=== PATIENT | female | born 1955 | race Caucasian/White ===

== ENCOUNTER 2018-12-26 19:54 | Inpatient (IN) | payer MEDICAID, SELFPAY ==
--- NOTE | 2018-12-26 20:06 | EKG12_ITS ---
Test Reason : L HIP FX Blood Pressure : / mmHG Vent. Rate : 071 BPM Atrial Rate : 071 BPM P-R Int : 132 ms QRS Dur : 088 ms QT Int : 590 ms P-R-T Axes : 042 -08 059 degrees QTc Int : 641 ms Normal sinus rhythm Nonspecific ST and T wave abnormality Abnormal ECG Confirmed by MADDY GRAY, KALE ([id number]), scientific editor MARY LAWS ([id number]) on 12/30/2018 10:26:07 AM Referred By: DAMON Confirmed By:KALE CASTAÑEDA MD
--- NOTE | 2018-12-26 20:06 | CT_ITS ---
STUDY: CT BRAIN WITHOUT CONTRAST REASON FOR EXAM: Female, 63 years old. 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 Individualized dose optimization techniques were used for this CT. COMPARISON: July 10, 2016 FINDINGS: Normal soft tissue structures. Normal calvarium. Talus coils are seen in the vicinity of the distal supraclinoid portion of the right internal carotid consistent with aneurysm repair. Ventricular shunt tube entering the brain through a daniel hole in the right parietal bone with tip in the vicinity of the frontal pole of left lateral ventricle Normal size ventricles and extra-axial spaces for the patient's age. Extensive periventricular white matter hypoattenuation most severe on the right in watershed distribution. Old right thalamic infarct.. Normal basal ganglia. Normal brainstem. Normal cerebellum. There is no intracranial hemorrhage. There are no findings of an acute ischemic infarction. Normal visualized paranasal sinuses. No significant change since prior exam CT/Brain/Head without Contrast IMPRESSION: Periventricular white matter disease more severe on the right in association with old right thalamic infarct. No evidence for acute intracranial bleed. Other findings as above Electronically Signed: Tom Fall MD at 21:37 EDT , Service support ,
--- NOTE | 2018-12-26 20:07 | RAD_ITS ---
STUDY: X-RAY - PELVIS AND LEFT HIP REASON FOR EXAM: Female, 63 years old. Fall. Left hip and groin pain. TECHNIQUE: 4 views of the pelvis and hip. COMPARISON: Pelvis and left hip, July 11, 2016. An right hip, July 11, 2016 FINDINGS: There is a non-specific bowel gas pattern. Normal visualized soft tissue structures. There are multiple calcified phleboliths. The inferior aspect of a [employer]ER shunt catheter is seen coiled in the pelvis. There is narrowing with cortical sclerosis and osteophyte formation of the sacroiliac joint consistent with degenerative osteoarthritic changes. Normal iliac wings and sacrum. Irregularity of the right pubic rami, suggesting interval fracture of the inferior Dexter and superior rami extending into the symphysis pubis Normal pubic symphysis. Normal bilateral ischial tuberosities. There is a medullary angella in the femoral shaft with a transfixing screw extending into the femoral head and neck. This screw extends laterally through the medullary angella greater than expected from the post images of 2019 suggesting a compression of the femoral neck. The intratrochanteric fracture is minimally evident. The lesser trochanteric fragment now impacts against the inferior hip joint. Normal acetabulum. Normal hip joint. RAD/HIP, UNI W/ Pelvis 2-3 Views IMPRESSION: 1. No evidence of internal fixation of left intratrochanteric fracture. There is questionable impaction of the femoral neck with slight extension of the fixating screw at the right compared to the postop images. 2. The lesser trochanteric fracture fragment now impacts the inferior aspect of the right hip joint. 3. Irregularity of the superior and inferior right pubic rami suggesting fracture not noted on the prior images. Electronically Signed: Alfa Gan DO at 21:17 EDT Tel [phone], Service support ,
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
[2018-12-26 20:14] VITALS: BP 118/87; PULSE 74; RESP 18; TEMP 36.6; O2SAT 100; BMI 22.6
[2018-12-26 20:49] LABS: Absolute Lymphocyte Count 2.36 X10^3/uL (0.83-4.51); Absolute Neutrophil Count 8.5 X10^3/uL (2.0-7.7); Basophil# 0.06 X10^3/uL; Basophil% 0.5 % (0-1); Eosinophil# 0.21 X10^3/uL; Eosinophils% 1.7 % (0-5); Hematocrit 33.6 % (37-47); Lymphocyte # 2.36 X10^3/ul (4.0); Lymphocyte % 19.6 % (19-41); Mean Corp Hgb Conc 32.7 g/dL (32-36); Mean Corpuscular Hgb 32.4 pg (27.0-32.0); Mean Corpuscular Volume 98.8 fL (81-99); Mean Platelet Vol. 9.8 fl (6.2-12.0); Monocyte# 0.86 X10^3/uL; Monocyte% 7.1 % (0-10); NRBC Flagged by Analyzer 0 % (0-5); Neutrophil # 8.47 X10^3/uL (2.7-7.7); Neutrophil % 70.5 % (47-70); Platelet Count 258 K/mm3 (150-450); RBC Distribution Width CV 14.6 % (11.6-14.6)
--- NOTE | 2018-12-26 20:50 | RAD_ITS ---
STUDY: X-RAY CHEST REASON FOR EXAM: Female, 63 years old. Fall. Pain. TECHNIQUE: Single AP portable view of the chest. COMPARISON: July 10, 2016. FINDINGS: Stable right-sided ASPHALT BLENDER shunt catheter. The lungs are clear and expanded. There is no demonstrated pleural abnormality. Normal size heart. Normal mediastinum and ade. Normal visualized pulmonary arteries. Normal visualized aortic arch and descending thoracic aorta. The thoracic spine is obscured by the mediastinum. There is degenerative osteoarthritis of the bilateral shoulders. There is no demonstrated abnormality of the visualized soft tissue structures of the upper abdomen. RAD/Chest 1 View (Portable) IMPRESSION: Degenerative changes, as described above. No demonstrated acute cardiopulmonary process. There is no interval change. Electronically Signed: Alfa Gan DO at 21:06 EDT Tel [phone], Service support ,
[2018-12-26] MEDS: 0.9% Normal Saline 1,000 ML 1000 ML IV (21:01)
[2018-12-26 21:06] LABS: International Normalized Ratio 1.2; Prothrombin Time (Protime)PT. 14.9 SECONDS (11.7-14.9)
[2018-12-26 21:09] LABS: AST(SGOT) 22 U/L (15-37); Alanine Aminotransfer ALT/SGPT 26 U/L (13-56); Albumin, Serum 3.5 g/dL (3.2-5.0); Alkaline Phosphatase 73 U/L (45-117); Anion Gap 6 (5-15); BUN 21 mg/dL (7-18); BUN/Creat Ratio 20.4 RATIO (10-20); CPK Total, Creatine Kinase 102 U/L (26-192); Calcium,Total 8.5 mg/dL (8.5-10.1); Chloride 113 mmol/L (98-107); Creatinine, Serum 1.03 mg/dL (0.55-1.02); EST Glomerular Filtration Rate 58 mL/min (>60); Est Glom Filt Rate - Afr Amer 70 mL/min (>60); Estimated Creatinine Clearance 47.45 ml/min; Globulin 3.5 g/dL (2.2-4.2); Glucose 90 mg/dL (74-106); Potassium 2.4 mmol/L (3.5-5.1); Sodium Level 143 mmol/L (136-145)
[2018-12-26 21:10] LABS: Lactic Acid 1.9 mmol/L (0.4-2.0)
--- NOTE | 2018-12-26 21:11 | ED.RN ---
RECEIVED CRITICAL LAB VALUE, AWARE.
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
--- NOTE | 2018-12-26 21:17 | ED.RN ---
PER EMS PT'S HOME IS UNFIT FOR HUMAN HABITATION, THEY STATE IS IS COVERED WITH CAT FECES AND URINE, 20 CATS. PT HAS EXTREMELY POOR HYGIENE, FLORES ON CHEST, BILATERAL ARMS AND HANDS, BILATERAL LEGS WELL GENITALS. PT ALSO COVERED IN FLEAS, CLOTHING DOUBLE BAGGED, ALL BED LINEN CHANGED. CLOTHING IS FILTHY
[2018-12-26 21:28] LABS: Mucous, Urine 0 SEEN /hpf (<or=2+); Red Blood Cells-Urine 0 SEEN /hpf (0-5); Squamous Epithelial Cells - UA 0 SEEN /hpf (5-10); White Blood Cells 0 SEEN /hpf (0-5)
[2018-12-26] MEDS: Potassium Chloride 10mEq/100mL 10 MEQ/100 ML IV.SOLN. 100 MEQ IV BOLUS ×2 (21:39→23:00)
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
[2018-12-26 21:44] LABS: Color, Urine Yellow (Yellow); Glucose, Dipstick Normal (Normal); Ketone-Dipstick 5 mg/dl (Negative); Leukocyte Esterase-Dipstick 25 /ul (Negative); Nitrite-Dipstick Positive (Negative); Occult Blood-Urine Negative /ul (Negative); Protein-Dipstick 30 mg/dl (Negative); Urine Bilirubin Dipstick Negative (Negative); Urine Clarity Clear (Clear); Urine Urobilinogen 1 mg/dl (Normal)
[2018-12-26 22:00] LABS: Bacteria 2+ /hpf (None Seen)
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
[2018-12-26] MEDS: fentaNYL 100 MCG/2 ML Ampul 25 MCG IV (22:55)
[2018-12-26] MEDS: Ceftriaxone 1 GM/50 ML BAG IV (22:55)
[2018-12-26 22:59] VITALS: BP 122/64; PULSE 70; RESP 18; O2SAT 99
[2018-12-26 23:27] VITALS: BP 123/60; PULSE 72; RESP 18; TEMP 36.6; O2SAT 99
[2018-12-26 23:28] VITALS: BMI 19.1; BMI 22.7
[2018-12-26 23:35] VITALS: PULSE 72
[2018-12-26 23:35] LABS: Magnesium 2.1 mg/dL (1.6-2.6)
[2018-12-27] VITALS (10 sets, daily range): BP systolic 112–148; BP diastolic 53–66; PULSE 68–79; RESP 16–18; TEMP 36.3–37.1; O2SAT 96–100
[2018-12-27] MEDS: Levothyroxine 50 MCG Tablet PO (05:23)
[2018-12-27] MEDS: Acetaminophen 500 MG Tablet PO ×4 (05:23→23:52)
[2018-12-27] MEDS: oxyCODONE 5 MG Tablet PO ×2 (05:24→18:23)
[2018-12-27 06:02] LABS: Absolute Lymphocyte Count 2.19 X10^3/uL (0.83-4.51); Absolute Neutrophil Count 6.3 X10^3/uL (2.0-7.7); Basophil# 0.04 X10^3/uL; Basophil% 0.4 % (0-1); Eosinophil# 0.32 X10^3/uL; Eosinophils% 3.4 % (0-5); Hematocrit 30.9 % (37-47); Lymphocyte # 2.19 X10^3/ul (4.0); Lymphocyte % 23.3 % (19-41); Mean Corp Hgb Conc 32.4 g/dL (32-36); Mean Corpuscular Hgb 31.8 pg (27.0-32.0); Mean Corpuscular Volume 98.4 fL (81-99); Monocyte# 0.55 X10^3/uL; Monocyte% 5.8 % (0-10); NRBC Flagged by Analyzer 0 % (0-5); Neutrophil # 6.27 X10^3/uL (2.7-7.7); Neutrophil % 66.7 % (47-70); Platelet Count 241 K/mm3 (150-450); RBC Distribution Width CV 14.8 % (11.6-14.6); RBC Distribution Width SD 53.4 fl (35.1-43.9); Red Blood Count 3.14 M/mm3 (4.2-5.4); White Blood Count 9.4 K/mm3 (4.4-11.0)
[2018-12-27 06:40] LABS: Magnesium 2.1 mg/dL (1.6-2.6)
[2018-12-27 06:43] LABS: Anion Gap 3 (5-15); BUN 16 mg/dL (7-18); BUN/Creat Ratio 20.8 RATIO (10-20); Calcium,Total 8.3 mg/dL (8.5-10.1); Chloride 122 mmol/L (98-107); Creatinine, Serum 0.77 mg/dL (0.55-1.02); EST Glomerular Filtration Rate 81 mL/min (>60); Est Glom Filt Rate - Afr Amer 98 mL/min (>60); Estimated Creatinine Clearance 61.41 ml/min; Glucose 91 mg/dL (74-106); Potassium 4.3 mmol/L (3.5-5.1); Sodium Level 144 mmol/L (136-145)
[2018-12-27] MEDS: Multivitamins,Therapeutic Tablet 1 TABLET PO (08:30)
[2018-12-27] MEDS: Dicyclomine 10 MG Capsule PO ×3 (08:30→16:08)
[2018-12-27] MEDS: Diclofenac 75 MG Tablet PO ×2 (08:30→16:08)
[2018-12-27] MEDS: buPROPion (SR) 150 MG Tablet.SA PO ×2 (09:56→21:15)
[2018-12-27] MEDS: Escitalopram Oxalate 10 MG Tablet PO (09:56)
[2018-12-27] MEDS: Loratadine 10 MG Tablet PO (09:56)
[2018-12-27] MEDS: Baclofen 10 MG Tablet PO ×2 (09:56→21:15)
[2018-12-27] MEDS: Lisinopril 10 MG Tablet PO (09:56)
[2018-12-27] MEDS: Pregabalin 50 MG Capsule PO ×2 (10:00→21:16)
--- NOTE | 2018-12-27 10:31 | CASEMGMT ---
Social Work Consult: SNF placement Informant: Social Work Reviewed patient chart and ED SW note from last evening. Met with patient in room. Introduced self as well as child protective services social worker role. Patient agreeable to met with this child protective services social worker. Patient stating to live alone and to have support from neighbors. Patient stating that sonBarak is currently in senior living in [place] with possible release in 2019. Patient identifying patient neighbors as main support for transportation and mowing patient yard. Patient stating to have three brothers that see patient occasionally. Patient stating to be interested and agreeable to fci placement, if this is needed. This child protective services social worker noting that therapy has not yet evaluated patient yet and disposition is unclear but there are concerns of patient safety within the home. Patient confirming to stating I have a lot of cats. Patient stating to have no concerns with home environment and to be able to meet all own needs. Patient stating to be able to get own food and manage ADL's. Per ED documentation patient was unkept when coming to ED and per per squad patient home is unkept with fecal matter of cats throughout the home. Per documentation patient is stating to see a decline in ability to care for self. This child protective services social worker providing patient with list of nursing homes within the [facility] as well as noting which facilities are in-network with patient insurance. Patient planning to review list and pick top three. Patient aware social work will follow up with patient on Saturday for placement/discharge planning. Moe LEON, ARCELIA
--- NOTE | 2018-12-27 13:21 | PCM.PROGNOTE ---
<Devon Vásquez - Last Filed: 12/27/18 13:21> Patient Problems: Active and Suspected Problems Fall (Acute) Left hip pain (Acute) Hypokalemia (Acute) - Physical Exam General: Alert, Oriented x3, Cooperative HEENT: Atraumatic, PERRLA, EOMI, Normocephalic Neck: Supple, No JVD, Negative Carotid Bruits Lungs: Clear to auscultation, Normal air movement Cardiovascular: Regular rate, No murmurs Abdomen: Bowel Sounds Present, Soft, Non Tender Extremities: No edema, Capillary Refill Less than 3 Seconds Skin: No rashes, No breakdown Musculoskeletal: No Tenderness to Palpation of Joints or Extremities Neurological: Cranial nerves II-XII grossly intact Psych/Mental Status: Flat Affect, Alert and oriented to time, place, person, mood and affect Vital Signs Temp Pulse Resp BP Pulse Ox 97.3 F L 76 16 129/62 H 98 12/27/18 09:51 12/27/18 09:51 12/27/18 09:51 12/27/18 09:51 12/27/18 09:51 Oxygen Delivery Method Room Air Weight: 111 lb 12.39 oz Body Mass Index (BMI) 19.1 Finger Stick Blood Glucose 88 Intake and Output for Last 24 Hours 12/25/18 12/26/18 12/27/18 23:59 23:59 23:59 Intake Total 1100 / 1100 1190 / 1190 Balance 1100 / 1100 1190 / 1190 Microbiology Past 72 Hours 12/26/18 21:10 Urine Culture - Preliminary Urine Catheter - Catheter GNR lactose automotive service director Laboratory Tests Past 24 Hrs 12/26/18 12/26/18 12/26/18 20:33 20:33 20:33 WBC 12.0 H RBC 3.40 L Hgb 11.0 L Hct 33.6 L MCV 98.8 MCH 32.4 H MCHC 32.7 RDW Std Deviation 53.0 H RDW Coeff of Jesus 14.6 Plt Count 258 MPV 9.8 Immature Gran % (Auto) 0.600 Neut % (Auto) 70.5 H Lymph % (Auto) 19.6 Baylor % (Auto) 7.1 Eos % (Auto) 1.7 Baso % (Auto) 0.5 Absolute Neuts (auto) 8.5 H Absolute Lymphs (auto) 2.36 Nucleated RBC % 0 PT 14.9 INR 1.2 Sodium 143 Potassium 2.4 L* Chloride 113 H Carbon Dioxide 24.0 Anion Gap 6 BUN 21 H Creatinine 1.03 H Estim Creat Clear Calc 47.45 Est GFR (MDRD) Af Amer 70 Est GFR (MDRD) Non-Af 58 L BUN/Creatinine Ratio 20.4 H Glucose 90 Lactic Acid Calcium 8.5 Magnesium Total Bilirubin 0.40 AST 22 ALT 26 Alkaline Phosphatase 73 Total Creatine Kinase 102 Total Protein 7.0 Albumin 3.5 Globulin 3.5 Albumin/Globulin Ratio 1.0 Vitamin B12 Vitamin D 25-Hydroxy Urine Color Urine Clarity Urine pH Ur Specific [place] Urine Protein Urine Glucose (UA) Urine Ketones Urine Occult Blood Urine Nitrite Urine Bilirubin Urine Urobilinogen Ur Leukocyte Esterase Urine RBC Urine WBC Ur Squamous Epith Cells Urine Bacteria Urine Mucus Urine Potassium 12/26/18 12/26/18 12/26/18 20:33 20:33 21:10 WBC RBC Hgb Hct MCV MCH MCHC RDW Std Deviation RDW Coeff of Jesus Plt Count MPV Immature Gran % (Auto) Neut % (Auto) Lymph % (Auto) Baylor % (Auto) Eos % (Auto) Baso % (Auto) Absolute Neuts (auto) Absolute Lymphs (auto) Nucleated RBC % PT INR Sodium Potassium Chloride Carbon Dioxide Anion Gap BUN Creatinine Estim Creat Clear Calc Est GFR (MDRD) Af Amer Est GFR (MDRD) Non-Af BUN/Creatinine Ratio Glucose Lactic Acid 1.9 Calcium Magnesium 2.1 Total Bilirubin AST ALT Alkaline Phosphatase Total Creatine Kinase Total Protein Albumin Globulin Albumin/Globulin Ratio Vitamin B12 Vitamin D 25-Hydroxy Urine Color Yellow Urine Clarity Clear Urine pH 6.0 Ur Specific [place] 1.010 Urine Protein 30 H Urine Glucose (UA) Normal Urine Ketones 5 H Urine Occult Blood Negative Urine Nitrite Positive H Urine Bilirubin Negative Urine Urobilinogen 1 H Ur Leukocyte Esterase 25 H Urine RBC 0 SEEN Urine WBC 0 SEEN Ur Squamous Epith Cells 0 SEEN Urine Bacteria 2+ Urine Mucus 0 SEEN Urine Potassium 12/26/18 12/27/18 12/27/18 21:10 05:15 05:15 WBC 9.4 RBC 3.14 L Hgb 10.0 L Hct 30.9 L MCV 98.4 MCH 31.8 MCHC 32.4 RDW Std Deviation 53.4 H RDW Coeff of Jesus 14.8 H Plt Count 241 MPV 10.0 Immature Gran % (Auto) 0.400 Neut % (Auto) 66.7 Lymph % (Auto) 23.3 Baylor % (Auto) 5.8 Eos % (Auto) 3.4 Baso % (Auto) 0.4 Absolute Neuts (auto) 6.3 Absolute Lymphs (auto) 2.19 Nucleated RBC % 0 PT INR Sodium 144 Potassium 4.3 Chloride 122 H Carbon Dioxide 19.0 L Anion Gap 3 L BUN 16 Creatinine 0.77 Estim Creat Clear Calc 61.41 Est GFR (MDRD) Af Amer 98 Est GFR (MDRD) Non-Af 81 BUN/Creatinine Ratio 20.8 H Glucose 91 Lactic Acid Calcium 8.3 L Magnesium Total Bilirubin AST ALT Alkaline Phosphatase Total Creatine Kinase Total Protein Albumin Globulin Albumin/Globulin Ratio Vitamin B12 Vitamin D 25-Hydroxy Urine Color Urine Clarity Urine pH Ur Specific [place] Urine Protein Urine Glucose (UA) Urine Ketones Urine Occult Blood Urine Nitrite Urine Bilirubin Urine Urobilinogen Ur Leukocyte Esterase Urine RBC Urine WBC Ur Squamous Epith Cells Urine Bacteria Urine Mucus Urine Potassium 61.0 12/27/18 12/27/18 05:15 05:15 WBC RBC Hgb Hct MCV MCH MCHC RDW Std Deviation RDW Coeff of Jesus Plt Count MPV Immature Gran % (Auto) Neut % (Auto) Lymph % (Auto) Baylor % (Auto) Eos % (Auto) Baso % (Auto) Absolute Neuts (auto) Absolute Lymphs (auto) Nucleated RBC % PT INR Sodium Potassium Chloride Carbon Dioxide Anion Gap BUN Creatinine Estim Creat Clear Calc Est GFR (MDRD) Af Amer Est GFR (MDRD) Non-Af BUN/Creatinine Ratio Glucose Lactic Acid Calcium Magnesium 2.1 Total Bilirubin AST ALT Alkaline Phosphatase Total Creatine Kinase Total Protein Albumin Globulin Albumin/Globulin Ratio Vitamin B12 Pending Vitamin D 25-Hydroxy Pending Urine Color Urine Clarity Urine pH Ur Specific [place] Urine Protein Urine Glucose (UA) Urine Ketones Urine Occult Blood Urine Nitrite Urine Bilirubin Urine Urobilinogen Ur Leukocyte Esterase Urine RBC Urine WBC Ur Squamous Epith Cells Urine Bacteria Urine Mucus Urine Potassium Medical Necessity - Tobacco Use Smoking Status: Current every day smoker Tobacco Use: Cigarettes Assessment/Plan All Active Problems Fall (Acute) Left hip pain (Acute) Hypokalemia (Acute) 1. Fall, debility - PTOT. Xray shows new changes, ct hip ordered. consider ortho consult. hx prior hip surgery. 2. Hypokalemia - resolved. 3. Acute cystitis - WBC improved. Cx with 80-100k GNR. Continue Rocephin. No fever. 4. Depression - escitalopram resumed. She was out at home, will need script at dc. 5. HTN - stable 6. Hypothyroid - synthroid 7. Hx hydrocephalus, brain aneurysm. DVT ppx: lovenox DC planning: PTOT. This patient was seen by Devon Vásquez PA-C under the supervision of Dr. Chávez. <José Miguel Chávez F - Last Filed: 12/27/18 14:01> - Physical Exam Vital Signs Temp Pulse Resp BP Pulse Ox 97.3 F L 76 16 129/62 H 98 12/27/18 09:51 12/27/18 09:51 12/27/18 09:51 12/27/18 09:51 12/27/18 09:51 Oxygen Delivery Method Room Air Weight: 111 lb 12.39 oz Body Mass Index (BMI) 19.1 Finger Stick Blood Glucose 88 Intake and Output for Last 24 Hours 12/25/18 12/26/18 12/27/18 23:59 23:59 23:59 Intake Total 1100 / 1100 1190 / 1190 Balance 1100 / 1100 1190 / 1190 Microbiology Past 72 Hours 12/26/18 21:10 Urine Culture - Preliminary Urine Catheter - Catheter GNR lactose automotive service director Laboratory Tests Past 24 Hrs 12/26/18 12/26/18 12/26/18 20:33 20:33 20:33 WBC 12.0 H RBC 3.40 L Hgb 11.0 L Hct 33.6 L MCV 98.8 MCH 32.4 H MCHC 32.7 RDW Std Deviation 53.0 H RDW Coeff of Jesus 14.6 Plt Count 258 MPV 9.8 Immature Gran % (Auto) 0.600 Neut % (Auto) 70.5 H Lymph % (Auto) 19.6 Baylor % (Auto) 7.1 Eos % (Auto) 1.7 Baso % (Auto) 0.5 Absolute Neuts (auto) 8.5 H Absolute Lymphs (auto) 2.36 Nucleated RBC % 0 PT 14.9 INR 1.2 Sodium 143 Potassium 2.4 L* Chloride 113 H Carbon Dioxide 24.0 Anion Gap 6 BUN 21 H Creatinine 1.03 H Estim Creat Clear Calc 47.45 Est GFR (MDRD) Af Amer 70 Est GFR (MDRD) Non-Af 58 L BUN/Creatinine Ratio 20.4 H Glucose 90 Lactic Acid Calcium 8.5 Magnesium Total Bilirubin 0.40 AST 22 ALT 26 Alkaline Phosphatase 73 Total Creatine Kinase 102 Total Protein 7.0 Albumin 3.5 Globulin 3.5 Albumin/Globulin Ratio 1.0 Vitamin B12 Vitamin D 25-Hydroxy Urine Color Urine Clarity Urine pH Ur Specific [place] Urine Protein Urine Glucose (UA) Urine Ketones Urine Occult Blood Urine Nitrite Urine Bilirubin Urine Urobilinogen Ur Leukocyte Esterase Urine RBC Urine WBC Ur Squamous Epith Cells Urine Bacteria Urine Mucus Urine Potassium 12/26/18 12/26/18 12/26/18 20:33 20:33 21:10 WBC RBC Hgb Hct MCV MCH MCHC RDW Std Deviation RDW Coeff of Jesus Plt Count MPV Immature Gran % (Auto) Neut % (Auto) Lymph % (Auto) Baylor % (Auto) Eos % (Auto) Baso % (Auto) Absolute Neuts (auto) Absolute Lymphs (auto) Nucleated RBC % PT INR Sodium Potassium Chloride Carbon Dioxide Anion Gap BUN Creatinine Estim Creat Clear Calc Est GFR (MDRD) Af Amer Est GFR (MDRD) Non-Af BUN/Creatinine Ratio Glucose Lactic Acid 1.9 Calcium Magnesium 2.1 Total Bilirubin AST ALT Alkaline Phosphatase Total Creatine Kinase Total Protein Albumin Globulin Albumin/Globulin Ratio Vitamin B12 Vitamin D 25-Hydroxy Urine Color Yellow Urine Clarity Clear Urine pH 6.0 Ur Specific [place] 1.010 Urine Protein 30 H Urine Glucose (UA) Normal Urine Ketones 5 H Urine Occult Blood Negative Urine Nitrite Positive H Urine Bilirubin Negative Urine Urobilinogen 1 H Ur Leukocyte Esterase 25 H Urine RBC 0 SEEN Urine WBC 0 SEEN Ur Squamous Epith Cells 0 SEEN Urine Bacteria 2+ Urine Mucus 0 SEEN Urine Potassium 12/26/18 12/27/18 12/27/18 21:10 05:15 05:15 WBC 9.4 RBC 3.14 L Hgb 10.0 L Hct 30.9 L MCV 98.4 MCH 31.8 MCHC 32.4 RDW Std Deviation 53.4 H RDW Coeff of Jesus 14.8 H Plt Count 241 MPV 10.0 Immature Gran % (Auto) 0.400 Neut % (Auto) 66.7 Lymph % (Auto) 23.3 Baylor % (Auto) 5.8 Eos % (Auto) 3.4 Baso % (Auto) 0.4 Absolute Neuts (auto) 6.3 Absolute Lymphs (auto) 2.19 Nucleated RBC % 0 PT INR Sodium 144 Potassium 4.3 Chloride 122 H Carbon Dioxide 19.0 L Anion Gap 3 L BUN 16 Creatinine 0.77 Estim Creat Clear Calc 61.41 Est GFR (MDRD) Af Amer 98 Est GFR (MDRD) Non-Af 81 BUN/Creatinine Ratio 20.8 H Glucose 91 Lactic Acid Calcium 8.3 L Magnesium Total Bilirubin AST ALT Alkaline Phosphatase Total Creatine Kinase Total Protein Albumin Globulin Albumin/Globulin Ratio Vitamin B12 Vitamin D 25-Hydroxy Urine Color Urine Clarity Urine pH Ur Specific [place] Urine Protein Urine Glucose (UA) Urine Ketones Urine Occult Blood Urine Nitrite Urine Bilirubin Urine Urobilinogen Ur Leukocyte Esterase Urine RBC Urine WBC Ur Squamous Epith Cells Urine Bacteria Urine Mucus Urine Potassium 61.0 12/27/18 12/27/18 05:15 05:15 WBC RBC Hgb Hct MCV MCH MCHC RDW Std Deviation RDW Coeff of Jesus Plt Count MPV Immature Gran % (Auto) Neut % (Auto) Lymph % (Auto) Baylor % (Auto) Eos % (Auto) Baso % (Auto) Absolute Neuts (auto) Absolute Lymphs (auto) Nucleated RBC % PT INR Sodium Potassium Chloride Carbon Dioxide Anion Gap BUN Creatinine Estim Creat Clear Calc Est GFR (MDRD) Af Amer Est GFR (MDRD) Non-Af BUN/Creatinine Ratio Glucose Lactic Acid Calcium Magnesium 2.1 Total Bilirubin AST ALT Alkaline Phosphatase Total Creatine Kinase Total Protein Albumin Globulin Albumin/Globulin Ratio Vitamin B12 Pending Vitamin D 25-Hydroxy Pending Urine Color Urine Clarity Urine pH Ur Specific [place] Urine Protein Urine Glucose (UA) Urine Ketones Urine Occult Blood Urine Nitrite Urine Bilirubin Urine Urobilinogen Ur Leukocyte Esterase Urine RBC Urine WBC Ur Squamous Epith Cells Urine Bacteria Urine Mucus Urine Potassium Code Visit Addendum: Dr. Chávez I personally examined the patient and reviewed the chart. I agree with the above. 63-year-old female presenting from home week and had a difficult time getting up from the toilet even. She has not been feeling well the last couple of days and she thinks that it started about 3 weeks ago when her son was jailed for meth trafficking. Since that time she just has been depressed and not eating very well and not taking all of her medications she ran out of her Endologix. She came into the ER with hypokalemia down to 2.4 which is been replaced. However x-rays of her left hip show the where she had a previous repair of the right damage, therefore will obtain CT of the hip and Ortho evaluation. Inpatient E&M: [id number] Subs Hosp L2
--- NOTE | 2018-12-27 13:25 | CT_ITS ---
STUDY: CT LEFT HIP WITHOUT CONTRAST REASON FOR EXAM: Female, 63 years old. Left hip surgery, left hip pain after falling RADIATION DOSAGE (If Supplied By Facility): CTDIvol = ( 13.38 ) mGy, DLP = ( 430.98 ) mGycm TECHNIQUE: Transaxial CT imaging of the hip was performed. Sagittal and coronal images were reconstructed. Individualized dose optimization techniques were used for this CT. COMPARISON: 12/26/2018 FINDINGS: Proximal left femur medullary angella with distal interlocking screw and femoral neck fixation screw identified causing moderate spray artifact. Ossific densities anterior to the femoral head likely related to prior surgery/injury, doubtful clinical significance. Mild is felt to be chronic. Fragmentation of the greater trochanter Normal alignment of the left hip. There are nondisplaced fractures inferior ramus (most conspicuous on axial image 44). There is also fracture of the right parasymphyseal pubis without significant pubic symphysis widening. There is cortical buckling of the lateral superior ramus (anterior to the acetabulum on image 25) suggesting nondisplaced fracture. Pelvic catheter is noted. CT/Extremity Lower without Contra IMPRESSION: 1. RIGHT parasymphyseal pubis fracture. 2. Inferior more than superior left rami fractures. 3. Operative changes of the proximal left humerus. No periimplant fracture or dislocation. Electronically Signed: Bryon Vazquez MD ([place]) at 14:10 EDT , Service support ,
[2018-12-27] MEDS: Amitriptyline 25 MG Tablet PO (21:15)
[2018-12-27] MEDS: Pravastatin 40 MG Tablet PO (21:16)
[2018-12-27] MEDS: Ceftriaxone 1 GM/50 ML BAG IV (21:16)
[2018-12-27] MEDS: 0.9% NaCl Peripheral Flush Adult/Peds IV (21:16)
[2018-12-28] VITALS (10 sets, daily range): BP systolic 102–142; BP diastolic 51–53; PULSE 60–70; RESP 16–18; TEMP 36.6–37.2; O2SAT 96–97
[2018-12-28] MEDS: Levothyroxine 50 MCG Tablet PO (05:55)
[2018-12-28] MEDS: Acetaminophen 500 MG Tablet PO ×4 (05:55→23:46)
[2018-12-28] MEDS: oxyCODONE 5 MG Tablet PO ×2 (05:56→20:09)
[2018-12-28] MEDS: Escitalopram Oxalate 10 MG Tablet PO (09:07)
[2018-12-28] MEDS: Enoxaparin 40 MG/0.4 ML Syringe SC (09:07)
[2018-12-28] MEDS: Loratadine 10 MG Tablet PO (09:07)
[2018-12-28] MEDS: Dicyclomine 10 MG Capsule PO ×3 (09:07→18:19)
[2018-12-28] MEDS: Diclofenac 75 MG Tablet PO ×2 (09:07→18:20)
[2018-12-28] MEDS: Baclofen 10 MG Tablet PO ×2 (09:07→22:10)
[2018-12-28] MEDS: Multivitamins,Therapeutic Tablet 1 TABLET PO (09:07)
[2018-12-28] MEDS: buPROPion (SR) 150 MG Tablet.SA PO ×2 (09:07→22:09)
[2018-12-28] MEDS: Senna/Docusate Sodium 1 Tablet PO ×2 (09:07→22:09)
[2018-12-28] MEDS: Pregabalin 50 MG Capsule PO ×2 (09:20→22:09)
--- NOTE | 2018-12-28 11:48 | PN_ITS ---
<Devon Vsáquez - Last Filed: 12/28/18 11:48> Patient Problems: Active and Suspected Problems Fall (Acute) Left hip pain (Acute) Hypokalemia (Acute) Subjective: This AM, 5/10 pelvic pain, anterior radiating across left side, with ambulation Was able to do some walking with therapy. No Dizzines/LH. She reports less freq uent urinartion. No fever/chills. Currently resting in chair with 0/10 pain. No SOB/cough. Affect somewhat improved today. - Physical Exam General: Alert, Oriented x3, Cooperative HEENT: Atraumatic, PERRLA, EOMI, Normocephalic Neck: Supple, No JVD, Negative Carotid Bruits Lungs: Clear to auscultation, Normal air movement Cardiovascular: Regular rate, No murmurs Abdomen: Bowel Sounds Present, Soft, Non Tender Extremities: No edema, Capillary Refill Less than 3 Seconds Skin: No rashes, No breakdown Musculoskeletal: No Tenderness to Palpation of Joints or Extremities Neurological: Cranial nerves II-XII grossly intact Psych/Mental Status: Flat Affect - somewhat improved compared to yesterday., Alert and oriented to time, place, person, mood and affect Vital Signs Temp Pulse Resp BP Pulse Ox 97.8 F 67 16 106/53 L 96 12/28/18 08:45 12/28/18 08:45 12/28/18 08:45 12/28/18 08:45 12/28/18 08:45 Oxygen Delivery Method Room Air Weight: 111 lb 12.39 oz Body Mass Index (BMI) 19.1 Finger Stick Blood Glucose 88 Intake and Output for Last 24 Hours 12/26/18 12/27/18 12/28/18 23:59 23:59 23:59 Intake Total 1100 / 1100 1939 200 / 200 Output Total 650 / 650 Balance 1100 / 1100 1939 -450 / -450 Microbiology Past 72 Hours 12/26/18 21:10 Urine Culture - Final Urine Catheter - Catheter Escherichia coli Medical Necessity - Tobacco Use Smoking Status: Current every day smoker Tobacco Use: Cigarettes Assessment/Plan All Active Problems Fall (Acute) Left hip pain (Acute) Hypokalemia (Acute) 1. Fall, debility - Left inferior>superior pubic rami fractures, right parasymphyseal fx. Able to bear weight and ambulate some. Continue ambulation with therapy as tolerated. Pain well controlled on current regimen. 2. Hypokalemia - resolved. 3. Acute cystitis - Cx with 80-100k E coli, pansensitive. Change to keflex. No fever. 4. Depression - escitalopram resumed. She was out at home, will need script at dc. 5. HTN - stable 6. Hypothyroid - synthroid 7. Hx hydrocephalus, brain aneurysm. DVT ppx: lovenox DC planning: PTOT. SNF placement. This patient was seen by Devon Vásquez PA-C under the supervision of Dr. Chávez. <José Miguel Chávez F - Last Filed: 12/28/18 14:11> - Physical Exam Vital Signs Temp Pulse Resp BP Pulse Ox 97.8 F 67 16 106/53 L 96 12/28/18 08:45 12/28/18 08:45 12/28/18 08:45 12/28/18 08:45 12/28/18 08:45 Oxygen Delivery Method Room Air Weight: 111 lb 12.39 oz Body Mass Index (BMI) 19.1 Finger Stick Blood Glucose 88 Intake and Output for Last 24 Hours 12/26/18 12/27/18 12/28/18 23:59 23:59 23:59 Intake Total 1100 / 1100 1939 / 2039 760 / 760 Output Total 650 / 650 Balance 1100 / 1100 1939 / 2039 110 / 110 Microbiology Past 72 Hours 12/26/18 21:10 Urine Culture - Final Urine Catheter - Catheter Escherichia coli Code Visit Addendum: Dr. Chávez I personally examined the patient and reviewed the chart. I agree with the jam gonsales. 63-year-old female presenting from home after a fall and feeling weak and had a difficult time getting up from the toilet even. She has not been feeling well the last couple of days and she thinks that it started about 3 weeks ago when her son was jailed for meth trafficking. Since that time she just has been depressed and not eating very well and not taking all of her medications she ran out of her Lexapro. She came into the ER with hypokalemia down to 2.4 which has been replaced. X-rays of her left hip show that there could be a potential fracture therefore CT scan was obtained which shows showed pubic rami fracture nondisplaced as well as right parasymphyseal pubis fracture. She is requiring physical therapy and because of her debility will likely need to be discharged to a SNF. Inpatient E&M: [id number] Subs Hosp L2
[2018-12-28] MEDS: Pravastatin 40 MG Tablet PO (22:10)
[2018-12-28] MEDS: Cephalexin 500 MG Capsule PO (22:10)
[2018-12-28] MEDS: Amitriptyline 25 MG Tablet PO (22:10)
[2018-12-29] VITALS (13 sets, daily range): BP systolic 110–134; BP diastolic 49–63; PULSE 62–75; RESP 14–18; TEMP 36.6–36.8; O2SAT 93–98
[2018-12-29] MEDS: Levothyroxine 50 MCG Tablet PO (05:47)
[2018-12-29] MEDS: Acetaminophen 500 MG Tablet PO ×4 (05:47→22:16)
[2018-12-29 08:14] LABS: Anion Gap 5 (5-15); BUN 24 mg/dL (7-18); BUN/Creat Ratio 36.8 RATIO (10-20); Calcium,Total 8.6 mg/dL (8.5-10.1); Chloride 116 mmol/L (98-107); Creatinine, Serum 0.65 mg/dL (0.55-1.02); EST Glomerular Filtration Rate 98 mL/min (>60); Est Glom Filt Rate - Afr Amer 119 mL/min (>60); Estimated Creatinine Clearance 72.75 ml/min; Glucose 97 mg/dL (74-106); Potassium 4.2 mmol/L (3.5-5.1); Sodium Level 143 mmol/L (136-145)
[2018-12-29] MEDS: Enoxaparin 40 MG/0.4 ML Syringe SC (08:46)
[2018-12-29] MEDS: Loratadine 10 MG Tablet PO (08:46)
[2018-12-29] MEDS: buPROPion (SR) 150 MG Tablet.SA PO ×2 (08:46→22:15)
[2018-12-29] MEDS: Dicyclomine 10 MG Capsule PO ×3 (08:46→17:53)
[2018-12-29] MEDS: Senna/Docusate Sodium 1 Tablet PO ×2 (08:46→22:15)
[2018-12-29] MEDS: Baclofen 10 MG Tablet PO ×2 (08:46→22:15)
[2018-12-29] MEDS: Multivitamins,Therapeutic Tablet 1 TABLET PO (08:46)
[2018-12-29] MEDS: Escitalopram Oxalate 10 MG Tablet PO (08:46)
[2018-12-29] MEDS: Diclofenac 75 MG Tablet PO ×2 (08:47→17:54)
[2018-12-29] MEDS: Cephalexin 500 MG Capsule PO ×2 (08:48→22:15)
[2018-12-29] MEDS: Pregabalin 50 MG Capsule PO ×2 (08:50→22:15)
[2018-12-29 09:13] LABS: Vitamin B12 282 pg/mL (211-911); Vitamin D,25 Hydroxy 13.4 ng/mL (29.95-100.01)
--- NOTE | 2018-12-29 09:35 | CASEMGMT ---
SW met with patient, introduced self as well as role at [facility]. SW asked her if she decided which correction facility she would like to go to . She said [facility] or [facility], in no particular order, would be fine. KWASI told her SW will work on this and let her know which facility is able to take her. SW also explained she will need insurance authorization so she likely won't leave today. SW called [facility] and [facility] leaving messages regarding referral. SW also faxed referral to both facilities. Await responses. Maria E PANIAGUA MSW
--- NOTE | 2018-12-29 10:08 | CASEMGMT ---
KWASI received a return call from Margarita at [facility]. She said they can accept patient and she will start the pre-cert. KWASI will let patient know this information. Plan: [facility] pending insurance approval. Maria E LEON
--- NOTE | 2018-12-29 13:20 | PN_ITS ---
<Devon Vásquez - Last Filed: 12/29/18 13:20> Patient Problems: Active and Suspected Problems Fall (Acute) Left hip pain (Acute) Hypokalemia (Acute) Subjective: No urinary complaints. Agreeable to SNF placement. Lives alone, unsteady on her feet. No fever/chills. No LH/dizziness. Pelvic pain well controlled. - Physical Exam General: Alert, Oriented x3, Cooperative HEENT: Atraumatic, PERRLA, EOMI, Normocephalic Neck: Supple, No JVD, Negative Carotid Bruits Lungs: Clear to auscultation, Normal air movement Cardiovascular: Regular rate, No murmurs Abdomen: Bowel Sounds Present, Soft, Non Tender Extremities: No edema, Capillary Refill Less than 3 Seconds Skin: No rashes, No breakdown Musculoskeletal: No Tenderness to Palpation of Joints or Extremities Neurological: Cranial nerves II-XII grossly intact Psych/Mental Status: Normal Affect, Appropriate, Alert and oriented to time, place, person, mood and affect Vital Signs Temp Pulse Resp BP Pulse Ox 98 F 69 18 110/51 L 97 12/29/18 12:09 12/29/18 12:09 12/29/18 12:09 12/29/18 12:09 12/29/18 12:09 Oxygen Delivery Method Room Air Weight: 111 lb 12.39 oz Body Mass Index (BMI) 19.1 Finger Stick Blood Glucose 88 Intake and Output for Last 24 Hours 12/27/18 12/28/18 12/29/18 23:59 23:59 23:59 Intake Total 1939 1480 / 1480 600 / 600 Output Total 950 / 950 150 / 150 Balance 1939 530 / 530 450 / 450 Microbiology Past 72 Hours 12/26/18 21:10 Urine Culture - Final Urine Catheter - Catheter Escherichia coli Laboratory Tests Past 24 Hrs 12/27/18 12/29/18 05:15 07:52 Sodium 143 Potassium 4.2 Chloride 116 H Carbon Dioxide 22.0 Anion Gap 5 BUN 24 H Creatinine 0.65 Estim Creat Clear Calc 72.75 Est GFR (MDRD) Af Amer 119 Est GFR (MDRD) Non-Af 98 BUN/Creatinine Ratio 36.8 H Glucose 97 Calcium 8.6 Vitamin B12 282 Vitamin D 25-Hydroxy 13.4 L Medical Necessity - Tobacco Use Smoking Status: Current every day smoker Tobacco Use: Cigarettes Assessment/Plan All Active Problems Fall (Acute) Left hip pain (Acute) Hypokalemia (Acute) 1. Fall, debility - Left inferior>superior pubic rami fractures, right parasymphyseal fx. Able to bear weight and ambulate some. Continue ambulation with therapy as tolerated. Pain well controlled on current regimen. 2. Hypokalemia - resolved. 3. Acute cystitis - keflex to complete 5 days total therapy. 4. Depression - escitalopram resumed, plan to continue. 5. HTN - stable 6. Hypothyroid - synthroid 7. Hx hydrocephalus, brain aneurysm. DVT ppx: lovenox DC planning: PTOT. SNF placement. This patient was seen by Devon Vásquez PA-C under the supervision of Dr. Harrington <Elina Harrington - Last Filed: 12/29/18 14:32> - Physical Exam Vital Signs Temp Pulse Resp BP Pulse Ox 98 F 69 18 110/51 L 97 12/29/18 12:09 12/29/18 12:09 12/29/18 12:09 12/29/18 12:09 12/29/18 12:09 Oxygen Delivery Method Room Air Weight: 111 lb 12.39 oz Body Mass Index (BMI) 19.1 Finger Stick Blood Glucose 88 Intake and Output for Last 24 Hours 12/27/18 12/28/18 12/29/18 23:59 23:59 23:59 Intake Total 19390 1480 / 1480 600 / 600 Output Total 950 / 950 150 / 150 Balance 1939 / 2039 530 / 530 450 / 450 Microbiology Past 72 Hours 12/26/18 21:10 Urine Culture - Final Urine Catheter - Catheter Escherichia coli Laboratory Tests Past 24 Hrs 12/27/18 12/29/18 05:15 07:52 Sodium 143 Potassium 4.2 Chloride 116 H Carbon Dioxide 22.0 Anion Gap 5 BUN 24 H Creatinine 0.65 Estim Creat Clear Calc 72.75 Est GFR (MDRD) Af Amer 119 Est GFR (MDRD) Non-Af 98 BUN/Creatinine Ratio 36.8 H Glucose 97 Calcium 8.6 Vitamin B12 282 Vitamin D 25-Hydroxy 13.4 L Assessment/Plan Patient seen by Devon Vásquez PA-C under my supervision Patient seen and examined. She was admitted on account of fall and generalized debility and was found to be severely hypokalemic. This is subsequently resolved. She was also managed for acute cystitis and is completed 5 days of Keflex. Patient complained of pelvic pain and imaging done showed left inferior and superior pubic rami fractures with right parasymphyseal fractures. PT OT is on board. Pain is well controlled. Patient seen and examined. She has no complaints and feels well. Review of systems is otherwise negative. Labs and vitals reviewed o/e: Vital Signs Height 5 ft 4 in Weight: 111 lb 12.39 oz Weight in Pounds 111.8 lbs Pulse Ox 97 Temperature 98 F Pulse Rate 69 Respiratory Rate 18 Blood Pressure 110/51 Blood Pressure Position Sitting General: Alert, Oriented x3, Cooperative HEENT: Atraumatic, PERRLA, EOMI, Normocephalic Neck: Supple, No JVD, Negative Carotid Bruits Lungs: Clear to auscultation, Normal air movement Cardiovascular: Regular rate, No murmurs Abdomen: Bowel Sounds Present, Soft, Non Tender Extremities: No edema, Capillary Refill Less than 3 Seconds Skin: No rashes, No breakdown Musculoskeletal: No Tenderness to Palpation of Joints or Extremities Neurological: Cranial nerves II-XII grossly intact Psych/Mental Status: Flat Affect, Alert and oriented to time, place, person, mood and affect Potassium is within normal limits today. PT OT is on board. She is [facility]. Pain is well controlled for pelvic fractures. Rest of management as per Devon Vásquez PA-C's notes which I reviewed and endorsed. Code Visit Inpatient E&M: 99671 Subs Hosp L2
[2018-12-29] MEDS: Pravastatin 40 MG Tablet PO (22:15)
[2018-12-29] MEDS: Amitriptyline 25 MG Tablet PO (22:16)
[2018-12-30 03:00] VITALS: PULSE 61
[2018-12-30 04:05] VITALS: BP 133/53; PULSE 60; RESP 18; TEMP 36.8; O2SAT 96
[2018-12-30] MEDS: Acetaminophen 500 MG Tablet PO ×2 (05:15→13:53)
[2018-12-30] MEDS: Levothyroxine 50 MCG Tablet PO (05:15)
[2018-12-30] MEDS: Dicyclomine 10 MG Capsule PO ×2 (08:24→13:54)
[2018-12-30] MEDS: Multivitamins,Therapeutic Tablet 1 TABLET PO (08:24)
[2018-12-30] MEDS: Cephalexin 500 MG Capsule PO (08:25)
[2018-12-30] MEDS: Loratadine 10 MG Tablet PO (08:25)
[2018-12-30] MEDS: Diclofenac 75 MG Tablet PO (08:25)
[2018-12-30] MEDS: Enoxaparin 40 MG/0.4 ML Syringe SC (08:26)
[2018-12-30] MEDS: Escitalopram Oxalate 10 MG Tablet PO (08:26)
[2018-12-30] MEDS: buPROPion (SR) 150 MG Tablet.SA PO (08:26)
[2018-12-30] MEDS: Baclofen 10 MG Tablet PO (08:26)
[2018-12-30] MEDS: Senna/Docusate Sodium 1 Tablet PO (08:26)
[2018-12-30] MEDS: Lisinopril 10 MG Tablet PO (08:27)
[2018-12-30] MEDS: Pregabalin 50 MG Capsule PO (08:30)
[2018-12-30] MEDS: oxyCODONE 5 MG Tablet PO (08:30)
[2018-12-30 09:01] VITALS: PULSE 64
[2018-12-30 10:05] VITALS: BP 125/59; PULSE 64; RESP 16; TEMP 36.6; O2SAT 99
--- NOTE | 2018-12-30 12:55 | PCM.PROGNOTE ---
<Devon Vásquez - Last Filed: 12/30/18 12:55> Patient Problems: Active and Suspected Problems Fall (Acute) Left hip pain (Acute) Hypokalemia (Acute) Subjective: Pt requesting nicotine patch, added today. She expresses a desire to continue this at DC so she does not go back to smoking. No CP/SOB/dizziness/LH/dysura/Fever/Chills. In chair at bedside upright NAD. - Physical Exam General: Alert, Oriented x3, Cooperative HEENT: Atraumatic, PERRLA, EOMI, Normocephalic Neck: Supple, No JVD, Negative Carotid Bruits Lungs: Clear to auscultation, Normal air movement Cardiovascular: Regular rate, No murmurs Abdomen: Bowel Sounds Present, Soft, Non Tender Extremities: No edema, Capillary Refill Less than 3 Seconds Skin: No rashes, No breakdown Musculoskeletal: No Tenderness to Palpation of Joints or Extremities Neurological: Cranial nerves II-XII grossly intact Psych/Mental Status: Flat Affect, Alert and oriented to time, place, person, mood and affect Vital Signs Temp Pulse Resp BP Pulse Ox 97.9 F 64 16 125/59 H 99 12/30/18 10:05 12/30/18 10:05 12/30/18 10:05 12/30/18 10:05 12/30/18 10:05 Oxygen Delivery Method Room Air Weight: 111 lb 12.39 oz Body Mass Index (BMI) 19.1 Finger Stick Blood Glucose 88 Intake and Output for Last 24 Hours 12/28/18 12/29/18 12/30/18 23:59 23:59 23:59 Intake Total 1480 / 1480 600 / 600 360 / 360 Output Total 950 / 950 300 / 300 350 / 350 Balance 530 / 530 300 / 300 10 Microbiology Past 72 Hours 12/26/18 21:10 Urine Culture - Final Urine Catheter - Catheter Escherichia coli Medical Necessity - Tobacco Use Smoking Status: Current every day smoker Tobacco Use: Cigarettes Assessment/Plan All Active Problems Fall (Acute) Left hip pain (Acute) Hypokalemia (Acute) 1. Fall, debility - Left inferior>superior pubic rami fractures, right parasymphyseal fx. Able to bear weight and ambulate some. Continue ambulation with therapy as tolerated. De-escalate opiates. 2. Hypokalemia - resolved. 3. Acute cystitis - keflex to complete 5 days total therapy. 4. Depression - escitalopram resumed, plan to continue. 5. HTN - stable 6. Hypothyroid - synthroid 7. Hx hydrocephalus, brain aneurysm. 8. Nicotine abuse - smokes about 0.5 ppd since teenager. Nicotine patch. Would benefit from PFTs as o/p. DVT ppx: lovenox DC planning: PTOT. SNF placement. This patient was seen by Devon Vásquez PA-C under the supervision of Dr. Harrington <Elina Harrington - Last Filed: 12/30/18 14:08> - Physical Exam Vital Signs Temp Pulse Resp BP Pulse Ox 97.9 F 64 16 125/59 H 99 12/30/18 10:05 12/30/18 10:05 12/30/18 10:05 12/30/18 10:05 12/30/18 10:05 Oxygen Delivery Method Room Air Weight: 111 lb 12.39 oz Body Mass Index (BMI) 19.1 Finger Stick Blood Glucose 88 Intake and Output for Last 24 Hours 12/28/18 12/29/18 12/30/18 23:59 23:59 23:59 Intake Total 1480 / 1480 600 / 600 360 / 360 Output Total 950 / 950 300 / 300 350 / 350 Balance 530 / 530 300 / 300 10 Microbiology Past 72 Hours 12/26/18 21:10 Urine Culture - Final Urine Catheter - Catheter Escherichia coli Assessment/Plan Patient seen by Devon Vásquez PA-C under my supervision Patient seen and examined. She has no complaints today. Review of systems otherwise negative. o/e: Vital Signs Height 5 ft 4 in Weight: 111 lb 12.39 oz Weight in Pounds 111.8 lbs Pulse Ox 99 Temperature 97.9 F Pulse Rate 64 Respiratory Rate 16 Blood Pressure 125/59 Blood Pressure Position Sitting General: Alert, Oriented x3, Cooperative HEENT: Atraumatic, PERRLA, EOMI, Normocephalic Neck: Supple, No JVD, Negative Carotid Bruits Lungs: Clear to auscultation, Normal air movement Cardiovascular: Regular rate, No murmurs Abdomen: Bowel Sounds Present, Soft, Non Tender Extremities: No edema, Capillary Refill Less than 3 Seconds Skin: No rashes, No breakdown Musculoskeletal: No Tenderness to Palpation of Joints or Extremities Neurological: Cranial nerves II-XII grossly intact Psych/Mental Status: Flat Affect, Alert and oriented to time, place, person, mood and affect Plan is for placement. Awaiting precert. Rest of management as per Devon Vásquez PA-C's notes which I reviewed and endorsed. Code Visit Inpatient E&M: 39899 Subs Hosp L2
--- NOTE | 2018-12-30 15:01 | CASEMGMT ---
Patient was approved to go to [facility]. SW notified chargeback specialist who notified physician and PA. SW notified patient. Await orders. Plan: d/c to [facility] under skilled level of care. Maria E LEON
--- NOTE | 2018-12-30 15:23 | PCM.EXTCARCO ---
- Diet 12/26/18 23:25 Diet: Regular Diet Food consistency:: Regular Liquid Consistency:: Regular/Thin - Routine Orders/Code Status Suppository Type: Dulcolax 10mg Suppository Frequency: Daily PRN Routine Lab Work: CBC - 5 days, BMP - 5 days Code Status: Full Code - Therapies Physical Therapy: Eval and Treat Occupational Therapy: Eval and Treat - Problem/Diagnosis (1) Pelvic fracture Status: Acute Current Visit: Yes (2) UTI (urinary tract infection) due to Enterococcus Status: Acute Current Visit: Yes (3) Debility Status: Chronic Current Visit: Yes (4) Nicotine abuse Status: Chronic Current Visit: Yes (5) Brain aneurysm Status: Chronic Current Visit: No (6) Depression Status: Chronic Current Visit: No (7) Essential (primary) hypertension Status: Chronic Current Visit: No (8) Hydrocephalus Status: Chronic Current Visit: No (9) Hypothyroid Status: Chronic Current Visit: No - Allergies/Procedures Done in Hospital Allergies/Adverse Reactions: Allergies amoxicillin Allergy (Verified 12/26/18 23:29) Hives yeast infection Procedures: None - Type of Care/Length of Stay Estimated LOS: Convalescent Care Less Than 30 days Type of Care Needed: Skilled Rehab Potential: Fair Prognosis: Fair - Additional Orders/Day of Discharge Day of Discharge: 12/30/18 - Dietary and Speech Recommendations Dietitian Recommendations/Changes: Continue regular diet with ensure enlive on medpass and magic cup BID with lunch & dinner. Current weight please. - Follow Up Care Primary Care Physician: Jaime Edmond MD [Primary Care Provider] - Please follow up with your Primary Care Physician in: 2 weeks
[2018-12-30 15:27] VITALS: PULSE 75; PULSE 92
[2018-12-30 16:05] VITALS: BP 123/54; PULSE 67; RESP 16; TEMP 36.8; O2SAT 97
--- NOTE | 2018-12-30 16:08 | CASEMGMT ---
KWASI faxed orders to [facility]. KWASI called [facility] and [place] and neither of them had availability. KWASI called [facility] and Margarita said they would pay for [facility] to take patient. KWASI called [facility] and arranged for patient to get picked up in 20 minutes as they will be coming to the hospital at that time. KWASI notified RN, POLICE PATROL OFFICER, processing spec, and Margarita at [facility]. Plan: d/c to [facility] under skilled level of care on a convalescent stay. [facility] paid for [facility] to transport patient via wc van. Maria E PANIAGUA DOMINATRIX
--- NOTE | 2018-12-30 16:12 | PCM.DC.SUM ---
<Devon Vásquez - Last Filed: 12/30/18 16:12> Discharge Date and Diagnosis Date of Admission: 12/26/18 Date of Discharge: 12/30/18 - Primary Discharge Diagnosis Active and Suspected Problems Debility, fall Pelvic fracture (Acute) UTI (urinary tract infection) due to Enterococcus (Acute) hypokalemia resolved HTN depression hypothyroidism hx hydrocephalus, brain aneurysm nicotine abuse - Secondary Discharge Diagnosis Chronic Problems Debility (Chronic) Nicotine abuse (Chronic) Anemia (Chronic) Depression (Chronic) Essential (primary) hypertension (Chronic) Hypothyroid (Chronic) Hydrocephalus (Chronic) Brain aneurysm (Chronic) Status post hip surgery (Chronic) Hospital Course and Treatment Imaging Results: CT/Brain/Head without Contrast IMPRESSION: Periventricular white matter disease more severe on the right in association with old right thalamic infarct. No evidence for acute intracranial bleed. Other findings as above RAD/HIP, UNI W/ Pelvis 2-3 Views IMPRESSION: 1. No evidence of internal fixation of left intratrochanteric fracture. There is questionable impaction of the femoral neck with slight extension of the fixating screw at the right compared to the postop images. 2. The lesser trochanteric fracture fragment now impacts the inferior aspect of the right hip joint. 3. Irregularity of the superior and inferior right pubic rami suggesting fracture not noted on the prior images. RAD/Chest 1 View (Portable) IMPRESSION: Degenerative changes, as described above. No demonstrated acute cardiopulmonary process. There is no interval change. CT/Extremity Lower without Contra IMPRESSION: 1. RIGHT parasymphyseal pubis fracture. 2. Inferior more than superior left rami fractures. 3. Operative changes of the proximal left humerus. No periimplant fracture or dislocation. Operations: None Procedures: None Summary of Care Provided: Hospital course: The patient is a 63 year old F with pmhx of prior left total hip, hypothyroidism, brain aneurysm, hydrocephalus, htn, depression, and nicotine abuse who presented to the ER with c/o left pelvic pain after a fall. She was at a neighbors house, lost her balance, and fell to the ground. In the ER she was reported to have fleas and cat feces covering her. In the ER she had a elevated WBC count and UA suggestive of UTI, and she did report increased urinary frequency. Imaging of her hip was abnormal but not specific. Potassium was markedly low. She was admitted and provided with rocephin, supportive care, and electrolyte replacement. A CT of the LLE revealed a right parasymphyseal fracture, and inferior > superior left pubic rami fractures. The implant was unaffected. She was able to walk on it with assistance the following day. A vitamin D level was low so she was started on supplementation. Urine culture showed E coli pansensitive. She was transition to oral keflex which she tolerated here and will continue until she has 5 total days of therapy. She remained weak and debilitated, and with her presenting with fall and fractures she was felt to need to go to an SNF. She was agreeable. She was discharged to SNF in stable condition. She will need follow up with her PCP in 2 weeks. This patient was seen by Devon Vásquez PA-C under the supervision of Dr. Harrington. [] - Physical Exam General: Alert, Oriented x3, Cooperative HEENT: Atraumatic, PERRLA, EOMI, Normocephalic Neck: Supple, No JVD, Negative Carotid Bruits Lungs: Clear to auscultation, Normal air movement Cardiovascular: Regular rate, No murmurs Abdomen: Bowel Sounds Present, Soft, Non Tender Extremities: No edema, Capillary Refill Less than 3 Seconds Skin: No rashes, No breakdown Musculoskeletal: No Tenderness to Palpation of Joints or Extremities Neurological: Cranial nerves II-XII grossly intact Psych/Mental Status: Flat Affect, Alert and oriented to time, place, person, mood and affect Vital Signs Temp Pulse Resp BP Pulse Ox 97.9 F 75 16 125/59 H 99 12/30/18 10:05 12/30/18 15:27 12/30/18 10:05 12/30/18 10:05 12/30/18 10:05 Oxygen Delivery Method Room Air Weight: 111 lb 12.39 oz Body Mass Index (BMI) 19.1 Finger Stick Blood Glucose 88 Intake and Output for Last 24 Hours 12/28/18 12/29/18 12/30/18 23:59 23:59 23:59 Intake Total 1480 / 1480 600 / 600 840 / 840 Output Total 950 / 950 300 / 300 350 / 350 Balance 530 / 530 300 / 300 490 / 490 Microbiology Past 72 Hours 12/26/18 21:10 Urine Culture - Final Urine Catheter - Catheter Escherichia coli Discharge Diet: Low fat/ Low Cholesterol, 2000 mg Sodium Diet Discharge Activity: Return to Normal Activity Home Medications: Medications to take at Discharge Amitriptyline HCl 25 - 50 mg PO QHS 12/11/14 Diclofenac [Voltaren] 75 mg PO BIDCM 12/11/14 Pregabalin [Lyrica] 50 mg PO BID 12/11/14 Baclofen 10 mg PO BID 11/22/15 Dicyclomine HCl [Bentyl] 10 mg PO TIDCM 07/11/16 Escitalopram Oxalate [Lexapro] 10 mg PO DAILY 07/11/16 Multivitamins,Therapeutic [Multivitamin] 1 tab PO DAILY 07/11/16 Pravastatin [Pravachol] 40 mg PO QHS 07/11/16 buPROPion SR [Wellbutrin SR (150mg tablets)] 150 mg PO BID 07/11/16 Albuterol Aerosols [Ventolin Aerosols] 2.5 mg INHALATION Q2H PRN PRN #0 vial.neb. 07/16/16 Lisinopril [Zestril] 10 mg PO DAILY #30 tablet 07/24/16 Cetirizine HCl [Zyrtec] 10 mg PO 12/26/18 Levothyroxine [Synthroid] 50 mcg PO DAILY 12/26/18 Acetaminophen [Tylenol] 500 mg PO Q6H PRN PRN #1 tab 12/30/18 Cephalexin [Keflex] 500 mg PO Q12 cap 12/30/18 Cholecalciferol (VIT D3) [Vitamin D3] 2,000 unit PO DAILY tab 12/30/18 Ensure Enlive 120 ml PO 4X/DAY liquid 12/30/18 Menthol [Bengay Vanishing Scent] 1 applic TOPICAL 4X/DAY PRN PRN tube 12/30/18 Nicotine [Nicoderm Cq] 21 mg TRANSDERM. DAILY patch 12/30/18 Oxycodone [Oxyir] 2.5 mg PO Q4H PRN PRN 3 Days #9 tab 12/30/18 Senna/Docusate Sodium [Senokot-S] 1 tab PO BID tab 12/30/18 Following Prescrptions Were Given to Patient: Oxycodone [Oxyir] 2.5 mg PO Q4H PRN PRN 3 Days #9 tab PRN Reason: Pain Score 6-10/10 Prescription Printed Primary Care Physician: Jaime Edmond MD [Primary Care Provider] - Please follow up with your Primary Care Physician in: 2 weeks Disposition: [facility] facility Minutes spent on discharge:: 35 Patient Condition:: Stable Medical Necessity - Tobacco Use Smoking Status: Current every day smoker Tobacco Use: Cigarettes Meaningful Use Info Meaningful Use Diagnoses (Choose all that apply): None applicable <Elina Harrington - Last Filed: 12/30/18 16:44> Discharge Date and Diagnosis - Secondary Discharge Diagnosis Chronic Problems Debility (Chronic) Nicotine abuse (Chronic) Anemia (Chronic) Depression (Chronic) Essential (primary) hypertension (Chronic) Hypothyroid (Chronic) Hydrocephalus (Chronic) Brain aneurysm (Chronic) Status post hip surgery (Chronic) Hospital Course and Treatment Summary of Care Provided: Patient seen by Devon Vásquez PA-C under my supervision The patient is a 63 year old F with past medical history as above. She was admitted to the ED with a complaint of left pelvic pain after a fall. She fell after she lost her balance. She was found in the [facility] police and cat feces covering her. UA done showed evidence of UTI. She was found to have markedly low potassium of around 2.4. She was admitted and managed for debility due to mechanical fall, hypokalemia and UTI. She was started on Rocephin and potassium was replaced. Initial imaging done of her hip was abnormal but nonspecific and a CT of the left lower extremity showed a right parasymphyseal fracture and left pubic rami fracture. Physical therapy was consulted and she was able to ambulate with assistance. She was started on vitamin D supplementation account of low vitamin D. She completed a 5-day course of oral Keflex to cover for UTI which grew in her urine culture. Patient remained weak and debilitated and was thought to need penitentiary therapy. She was discharged to a penitentiary facility on 12/30/2018 in a stable condition and is to follow-up with her PCP. Patient seen and examined prior to discharge. She had no complaints and felt well. Review of systems otherwise negative. Labs and vitals reviewed. Home medications reviewed and reconciled. Vital Signs Height 5 ft 4 in Weight: 111 lb 12.39 oz Weight in Pounds 111.8 lbs Pulse Ox 97 Temperature 98.2 F Pulse Rate 67 Respiratory Rate 16 Blood Pressure 123/54 Blood Pressure Position Sitting [] General: Alert, Oriented x3, Cooperative HEENT: Atraumatic, PERRLA, EOMI, Normocephalic Neck: Supple, No JVD, Negative Carotid Bruits Lungs: Clear to auscultation, Normal air movement Cardiovascular: Regular rate, No murmurs Abdomen: Bowel Sounds Present, Soft, Non Tender Extremities: No edema, Capillary Refill Less than 3 Seconds Skin: No rashes, No breakdown Musculoskeletal: No Tenderness to Palpation of Joints or Extremities Neurological: Cranial nerves II-XII grossly intact Psych/Mental Status: Flat Affect, Alert and oriented to time, place, person, mood and affect Rest of plan as per Devon Vásquez PA-C's note, which I have reviewed and endorsed. - Physical Exam Vital Signs Temp Pulse Resp BP Pulse Ox 98.2 F 67 16 123/54 H 97 12/30/18 16:05 12/30/18 16:05 12/30/18 16:05 12/30/18 16:05 12/30/18 16:05 Oxygen Delivery Method Nasal Cannula Weight: 111 lb 12.39 oz Body Mass Index (BMI) 19.1 Finger Stick Blood Glucose 88 Intake and Output for Last 24 Hours 12/28/18 12/29/18 12/30/18 23:59 23:59 23:59 Intake Total 1480 / 1480 600 / 600 840 / 840 Output Total 950 / 950 300 / 300 350 / 350 Balance 530 / 530 300 / 300 490 / 490 Microbiology Past 72 Hours 12/26/18 21:10 Urine Culture - Final Urine Catheter - Catheter Escherichia coli Code Visit Inpatient E&M: 20735 Disch Hosp
--- NOTE | 2018-12-30 16:15 | NURSING ---
verbal report given to Dang, nurse at [facility]
== END 2018-12-30 16:35 | disposition skilled nursing facility (03) | DRG 341 ==
LOC: ED 21:24 → PCU 12-27 00:07
PROVIDERS: Admitting Provider Hospitalist; Emergency Provider Emergency Medicine; Family Provider Internal Medicine; PCP Internal Medicine; Visit Provider Student in an Organized Health Care Education/Training Program
DX: S32.512A Fracture of superior rim of left pubis, initial encounter for closed fracture (principal); S32.592A Other specified fracture of left pubis, initial encounter for closed fracture; S32.89XA Fracture of other parts of pelvis, initial encounter for closed fracture; W19.XXXA Unspecified fall, initial encounter; Z98.2 Presence of cerebrospinal fluid drainage device; I10 Essential (primary) hypertension; E87.6 Hypokalemia; F17.210 Nicotine dependence, cigarettes, uncomplicated; N30.00 Acute cystitis without hematuria; E03.9 Hypothyroidism, unspecified; F32.9 Major depressive disorder, single episode, unspecified; B96.20 Unspecified Escherichia coli [E. coli] as the cause of diseases classified elsewhere; G91.9 Hydrocephalus, unspecified; D64.9 Anemia, unspecified; R53.81 Other malaise
CPT/HCPCS: 36415; 70450; 71045; 73502; 73700; 80048; 80053; 81001; 82306; 82550; 82607; 83605; 83735; 84133; 85025; 85610; 87077; 87086; 87088; 87186; 93005; 97110; 97116; 97162; 97165; 97530; 97535; 97802; 99285; J7030; J7050; P9612; A4216

== ENCOUNTER 2019-01-18 13:51 | Inpatient (IN) | payer MEDICAID, SELFPAY ==
[2018-12-26 23:28] VITALS: BMI 19.1
[2019-01-18] VITALS (42 sets, daily range): BP systolic 58–162; BP diastolic 30–64; PULSE 74–90; RESP 12–20; TEMP 34.5–37.5; O2SAT 95–100; BMI 24.4; BMI 23.3; BMI 24.5
--- NOTE | 2019-01-18 13:59 | EKG12_ITS ---
Test Reason : Blood Pressure : / mmHG Vent. Rate : 073 BPM Atrial Rate : 073 BPM P-R Int : 144 ms QRS Dur : 086 ms QT Int : 416 ms P-R-T Axes : 055 -19 045 degrees QTc Int : 458 ms Normal sinus rhythm Inferior infarct , age undetermined Abnormal ECG Confirmed by MARCIN GRAY, L[facility] ([id number]), health editor COOPER CARL ([id number]) on 01/20/2019 11:04:13 AM Referred By: Elina Harrington Confirmed By:LUH BURCH MD
--- NOTE | 2019-01-18 13:59 | RAD_ITS ---
STUDY: X-RAY CHEST REASON FOR EXAM: Female, 63 years old. Unresponsive, hypotension TECHNIQUE: AP COMPARISON: 12/26/2018 FINDINGS: EKG leads project over the chest. BUS TRANSPORTATION MANAGER shunt noted. Reticulation the left lung base is new since the prior study. There is no demonstrated pleural abnormality. Normal size heart. Normal mediastinum and ade. Normal visualized pulmonary arteries. Normal visualized aortic arch and descending thoracic aorta. Normal visualized thoracic spine. Normal visualized ribs, clavicles, and shoulders. There is no demonstrated abnormality of the visualized soft tissue structures of the upper abdomen. RAD/Chest 1 View IMPRESSION: Developing atelectasis or infiltrate in the left lung base. Electronically Signed: Bryon Vazquez MD (Brooks) at 15:02 EDT , Service support ,
--- NOTE | 2019-01-18 13:59 | CT_ITS ---
STUDY: CT BRAIN WITHOUT CONTRAST REASON FOR EXAM: Female, 63 years old. STROKE RADIATION DOSAGE (If Supplied By Facility): CTDIvol = ( 44.99 ) mGy, DLP = ( 751.12 ) mGycm TECHNIQUE: Transaxial CT imaging of the brain was performed without administration of intravenous contrast material. Individualized dose optimization techniques were used for this CT. COMPARISON: 12/26/2018 FINDINGS: Normal soft tissue structures. Normal calvarium. Stable size ventricles and extra-axial spaces for the patient's age. Right STITCHER TAPE CONTROLLED MACHINE shunt catheter is stable. Diminished density of right more than left periventricular white matter is stable likely sequela of prior infarction and/or surgery. Right thalamus lacunar infarction is stable. Aneurysm clip adjacent to sella is stable. Normal brainstem. Normal cerebellum. There is no intracranial hemorrhage. Normal visualized paranasal sinuses. CT/Brain/Head without Contrast IMPRESSION: Since 12/26/2018, stable exam. No acute intracranial hemorrhage. N.B. : The above information has been verbally conveyed by Bryon Vazquez MD (Brooks) to Ren Cortez on 01/18/2019 14:22:37 (ET). Electronically Signed: Bryon Vazquez MD (Brooks) at 14:23 EDT , Service support ,
--- NOTE | 2019-01-18 13:59 | CT_ITS ---
STUDY: CTA HEAD AND NECK WITH CONTRAST REASON FOR EXAM: Female, 63 years old. stroke RADIATION DOSAGE (If Supplied By Facility): CTDIvol = ( 16.09 ) mGy, DLP = ( 545.49 ) mGycm TECHNIQUE: CT angiography was performed with a multi-detector CT scanner. Data acquisition was obtained from the skull base through the vertex following intravenous administration of IV Isovue 370 100CC. MIP images were reconstructed from the axial data set. Post-processing of the angiographic images was performed, with multiplanar reformation and 3D reconstruction. Degree of stenosis (when present) measured utilizing NASCET criteria. Individualized dose optimization techniques were used for this CT. COMPARISON: head ct performed concurrently FINDINGS: Normal bilateral petrous carotid arteries. Normal right cavernous carotid artery with a normal supraclinoid bifurcation. Normal left cavernous carotid artery with a normal supraclinoid bifurcation. Normal right A1 segments of the anterior cerebral artery. Normal left A1 segments of the anterior cerebral artery. Normal intact anterior communicating artery (ACOM). Normal bilateral A2 segments of the anterior cerebral arteries. Normal right M1 and M2 segments of the middle cerebral arteries, with a normal M1 bifurcation. Normal left M1 and M2 segments of the middle cerebral arteries, with a normal M1 bifurcation. There is non-visualization of the right posterior communicating artery (PCOM). Rounded density causing moderate spray artifact along the right lateral and posterior margin of the sella turcica as seen on image 166 of series 3 compatible with prior aneurysm surgery/procedure. 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 There is a small atretic right vertebral artery with a dominant left vertebral artery. Normal basilar artery with a normal basilar bifurcation. The visualized bilateral superior cerebellar (SCA) arteries are normal. Normal bilateral P1, P2 and visualized P3 segments of the posterior cerebral arteries. There is no demonstrated aneurysm of the [place]. Intracranial contents described on head CT report. AORTIC ARCH: Normal visualized aortic arch. Normal origins of the brachiocephalic, left common carotid, and left subclavian arteries. RIGHT CAROTID ARTERIES: Normal right common carotid artery (CCA). There is mild atherosclerotic plaque formation with 10% luminal narrowing of the right carotid bulb. Normal visualized cervical portion of the right internal carotid artery. Normal origin of the right external carotid artery (ECA). LEFT CAROTID ARTERIES: Normal left common carotid artery (CCA). There is mild atherosclerotic plaque formation with 10-20% luminal of the left carotid bulb. There is atherosclerotic tortuous elongation of the cervical portion of the left internal carotid artery. Normal origin of the left external carotid artery (ECA). VERTEBRAL ARTERIES: There is enhancement within the bilateral vertebral arteries with a small right vertebral artery, and a dominant left vertebral artery. There are degenerative changes of the cervical spine. Visualized lung apices are unremarkable. CT/CTA Head AND Neck W/ Contrast IMPRESSION: 1. No intracranial/[place] aneurysm. Prior aneurysm repair (right parasellar) noted. 2. Minimal atherosclerosis of the carotid bulbs without hemodynamically significant stenosis. Electronically Signed: Bryon Vazquez MD (Brooks) at 14:30 EDT , Service support ,
--- NOTE | 2019-01-18 13:59 | NURSING ---
STROKE ALERT CALLED [phone]
[2019-01-18] MEDS: 0.9% Normal Saline 1,000 ML 999 ML IV ×3 (14:00→15:15)
--- NOTE | 2019-01-18 14:01 | ED.VIS.STROK ---
History of Present Illness Chief Complaint: Alt LOC Informant: Patient Onset: Today Context: - - unk onset maybe a couple hrs ago Narrative: Patient is a [facility] resident, has a history of some type of aneurysm in the brain and bleeding at some point, details are unknown initially, apparently some hours prior to arrival she suddenly started yelling out and grabbing at things in front of her, staff was concerned. They called paramedics but they called a private ambulance company who came sometime later. When I evaluated her they felt she was having a left facial droop and decreased level of responsiveness. They states she has had vomiting diarrhea for several days. History is very limited, the last known well is unknown, nursing talked to 3 different staff members at the correction and they do not know any details on the timing other than what is stated above. Capacity - Capacity Assessment Tool Can the patient make a choice & communicate that choice?: No Can the patient understand benefits, risks and alternatives?: No Can the patient make a logical, rational choice?: No - Past Medical History (1) UTI (urinary tract infection) due to Enterococcus Status: Resolved (2) Anemia Status: Chronic (3) Brain aneurysm Status: Chronic (4) Debility Status: Chronic (5) Depression Status: Chronic (6) Essential (primary) hypertension Status: Chronic (7) Hydrocephalus Status: Chronic (8) Hypothyroid Status: Chronic (9) Status post hip surgery Status: Chronic Past Medical History - Allergies and Home Meds Allergies/Adverse Reactions: Allergies amoxicillin Allergy (Verified 01/18/19 14:33) Hives yeast infection Primary Care Physician: Jaime Edmond MD [Primary Care Provider] - Surgical History: total hip arthroplasty, - - svp programmatic tv shunt, aneurysm clipped in brain. Lives: Long Term Smoking Status: Current every day smoker - Family History Maternal Family History: Reports: - - TIAs Paternal Family History: Reports: Hypertension, - - pancreatic cancer Review of Systems ROS: Unable to Obtain - except as below Gastrointestinal: Reports: Abdominal pain, Nausea STROKE Vital Signs/Narrative: Vital Signs Temp Pulse Resp BP Pulse Ox 01/18/19 13:52 98.2 F 77 14 77/39 L 95 Inital Vital Signs reviewed: Yes - NIHSS Initial 1a Level of Consciousness: 1 1b LOC Questions (Score 2 if aphasic/stupor): 2 1c LOC Commands (Only score 1st attempt): 0 2 Best Gaze (If aphasic, use reflexive mvmts.): 0 3 Visual: 0 4 Facial Palsy: 1 5 Motor Arm Right (UN = amputation/fusion): 2 5 Motor Arm Left: 3 6 Motor Leg Right: 0 6 Motor Leg Left: 0 7 Limb ataxia (Only + if out of proportion): 0 8 Sensory (Aphasia/stupor=0 or 1, coma=2): 1 9 Best Language: 1 11 Extinction and Inattention (only scored if +): 0 Total Score: 11 General: Well nourished, Well developed Head: Normocephalic, Atraumatic Eyes: Perrl, EOMI ENT: Moist mucous membranes, No rhinorrhea Neck: Supple, Nontender Cardiovascular: Regular rate, Regular rhythm, No murmurs Respiratory: No distress, CTA bilaterally, Chest nontender Abdomen: Soft, Nontender, Nondistended, Hypoactive bowel sounds Back: Nontender, Normal Inspection Extremities: Nontender, No edema Skin: Normal color, No rash Neurological: Lethargic - eyes open. follows commands. very confused, says words. GCS 4/6/3 = 13. Psychological: - - limited eval Diagnostic/Tx/Re-eval Impressions Brain CT 01/18/19 13:59 IMPRESSION: Since 12/26/2018, stable exam. No acute intracranial hemorrhage. N.B. : The above information has been verbally conveyed by Bryon Vazquez MD (Brooks) to Ren Cortez on 01/18/2019 14:22:37 (ET). Electronically Signed: Bryon Vazquez MD (Brooks) at 14:23 EDT , Service support , ADDENDUM: 01/18/19 1430 IMPRESSION: Since 12/26/2018, stable exam. No acute intracranial hemorrhage. N.B. : The above information has been verbally conveyed by Bryon Vazquez MD (Brooks) to Ren Cortez on 01/18/2019 14:22:37 (ET). Electronically Signed: Bryon Vazquez MD (Brooks) at 14:23 EDT , Service support , Chest X-Ray 01/18/19 13:59 IMPRESSION: Developing atelectasis or infiltrate in the left lung base. Electronically Signed: Bryon Vazquez MD (Brooks) at 15:02 EDT , Service support , Head/Neck CTA 01/18/19 13:59 IMPRESSION: 1. No intracranial/[place] aneurysm. Prior aneurysm repair (right parasellar) noted. 2. Minimal atherosclerosis of the carotid bulbs without hemodynamically significant stenosis. Electronically Signed: Bryon Vazquez MD (Brooks) at 14:30 EDT , Service support , 01/18/19 13:59 Brain/Head without Contrast [CT] Stat CTA Head AND Neck W/ Contrast [CT] Stat Chest 1 View [RAD] Stat 01/18/19 16:10 CXR [Chest 1 View (Portable)] [RAD] Stat 01/18/19 15:35 Stool Stool Occult Blood (SHANON) - Final Laboratory Results 01/18/19 01/18/19 01/18/19 14:00 14:00 14:00 WBC 12.4 H RBC 3.09 L Hgb 10.0 L Hct 33.6 L MCV 108.7 H MCH 32.4 H MCHC 29.8 L RDW Std Deviation 61.0 H RDW Coeff of Jesus 15.2 H Plt Count 385 MPV 10.3 Immature Gran % (Auto) 0.300 Neut % (Auto) 84.2 H Lymph % (Auto) 8.1 L [place] % (Auto) 4.9 Eos % (Auto) 2.3 Baso % (Auto) 0.2 Absolute Neuts (auto) 10.4 H Absolute Lymphs (auto) 1.00 Nucleated RBC % 0 PT 14.8 INR 1.2 APTT 29.1 Sodium 139 Potassium 5.1 Chloride 117 H Carbon Dioxide 9.0 L* Anion Gap 13 BUN 123 H* Creatinine 4.46 H Estim Creat Clear Calc 9.51 Est GFR (MDRD) Af Amer 13 L Est GFR (MDRD) Non-Af 11 L BUN/Creatinine Ratio 27.6 H Glucose 120 H Lactic Acid Calcium 8.5 Troponin I < 0.015 Urine Color Urine Clarity Urine pH Ur Specific [place] Urine Protein Urine Glucose (UA) Urine Ketones Urine Occult Blood Urine Nitrite Urine Bilirubin Urine Urobilinogen Ur Leukocyte Esterase Urine RBC Urine WBC Ur Squamous Epith Cells Urine Bacteria Urine Mucus 01/18/19 01/18/19 14:45 14:50 WBC RBC Hgb Hct MCV MCH MCHC RDW Std Deviation RDW Coeff of Jesus Plt Count MPV Immature Gran % (Auto) Neut % (Auto) Lymph % (Auto) [place] % (Auto) Eos % (Auto) Baso % (Auto) Absolute Neuts (auto) Absolute Lymphs (auto) Nucleated RBC % PT INR APTT Sodium Potassium Chloride Carbon Dioxide Anion Gap BUN Creatinine Estim Creat Clear Calc Est GFR (MDRD) Af Amer Est GFR (MDRD) Non-Af BUN/Creatinine Ratio Glucose Lactic Acid 1.7 Calcium Troponin I Urine Color Yellow Urine Clarity Sl. Cloudy Urine pH 5.0 Ur Specific [place] 1.025 Urine Protein 15 H Urine Glucose (UA) Normal Urine Ketones Negative Urine Occult Blood Negative Urine Nitrite Negative Urine Bilirubin 3 H Urine Urobilinogen Normal Ur Leukocyte Esterase 25 H Urine RBC 0 SEEN Urine WBC 0-5 SEEN Ur Squamous Epith Cells 0 SEEN Urine Bacteria RARE Urine Mucus 0 SEEN - Rhythm Strip Rhythm Strip: Sinus Rhythm Rate: 75 Ectopy: None - EKG Initial EKG Interpretation: Sinus Rhythm, No Acute Injury Pattern, - - inf Q waves, leftward axis - Medical Decision Making Stroke Team Activated: Yes - due to lateralizing, likely acute neuro sx Reviewed Inclusion/Exclusion criteria: Yes Was Patient considered for Endovascular Intervention?: No - neg CTA IV Alteplase (t-PA) Administered: No - due to unk timing Upon initial evaluation, stroke team was called due to lateralizing neurologic abnormalities that are reportedly acute. Her exact baseline since her aneurysm clipping is unknown. The exact timing of the beginning of her symptoms were last time known well are also unknown. Her plain CT is negative, she was sent for CT angiography simultaneously, which also came back negative for LVO or other acute abnormality. The clip the aneurysm was noted. I discussed with neurology Dr. Jorge who agrees that IV TPA is not indicated, and that further metabolic work-up would be indicated if CT angiography is negative, which it is. We continued bolusing her with IV fluids. After the first liter she was still hypotensive. After 3 L, the next 2 were given simultaneously, she is still hypotensive. Therefore a central line was placed after seen her chest x-ray showed likely showing early lower lobe infiltrate, a left subclavian line was placed, see the procedure note below. She has significant uremia, and associated metabolic acidosis. Given this, a rectal exam was performed to rule out GI bleeding, she had no gross blood and the specimen is Hemoccult negative. Her creatinine is in the fours, given recent vomiting and diarrhea, this is all likely due to dehydration and hypovolemic shock. She is hypothermic, we put a bear hugger on her to help actively rewarm after passive measures did nothing. After some time her temperature started to improve. Plan is ICU admission, Zosyn and vancomycin running. Certainly aspiration pneumonia is possible here. Procedure note: Central line placement Indication: Shock. The left subclavian site was prepped and draped in a sterile fashion with chlorhexidine, using finder needle on second attempt was able to find dark red nonpulsatile blood believe the left clavicle after locally anesthetizing with 5 cc of plain 1% lidocaine. The 16 cm triple-lumen catheter was placed via modified Seldinger technique again under sterile conditions without any adverse events. All 3 ports marshall back dark red nonpulsatile blood and flushed easily. The catheter was sutured in place. Placement was verified by portable chest x-ray. Critical care time (excluding procedures): 30-74 minutes - 35 minutes not including procedures, including time spent discussing with consultants, arranging admission, performing direct patient care at bedside. ED Disposition - Plan for ED Patient: Disposition: Acute Care Hospital [facility] Diagnosis: HCAP (healthcare-associated pneumonia), Dehydration, Sepsis, Hypovolemic shock, ARF (acute renal failure), Delirium, Uremic acidosis Referrals: Jaime Edmond MD [Primary Care Provider] -
[2019-01-18 14:05] LABS: Absolute Neutrophil Count 10.4 X10^3/uL (2.0-7.7); Basophil# 0.03 X10^3/uL; Basophil% 0.2 % (0-1); Eosinophil# 0.29 X10^3/uL; Eosinophils% 2.3 % (0-5); Hematocrit 33.6 % (37-47); Lymphocyte % 8.1 % (19-41); Mean Corp Hgb Conc 29.8 g/dL (32-36); Mean Corpuscular Hgb 32.4 pg (27.0-32.0); Mean Corpuscular Volume 108.7 fL (81-99); Mean Platelet Vol. 10.3 fl (6.2-12.0); Monocyte% 4.9 % (0-10); NRBC Flagged by Analyzer 0 % (0-5); Neutrophil # 10.41 X10^3/uL (2.7-7.7); Neutrophil % 84.2 % (47-70); Platelet Count 385 K/mm3 (150-450); RBC Distribution Width CV 15.2 % (11.6-14.6); Red Blood Count 3.09 M/mm3 (4.2-5.4); White Blood Count 12.4 K/mm3 (4.4-11.0)
[2019-01-18 14:13] LABS: International Normalized Ratio 1.2; Partial Thromboplast Time 29.1 Seconds (24.1-36.2); Prothrombin Time (Protime)PT. 14.8 SECONDS (11.7-14.9)
[2019-01-18 14:26] LABS: Anion Gap 13 (5-15); BUN/Creat Ratio 27.6 RATIO (10-20); Calcium,Total 8.5 mg/dL (8.5-10.1); Chloride 117 mmol/L (98-107); Creatinine, Serum 4.46 mg/dL (0.55-1.02); EST Glomerular Filtration Rate 11 mL/min (>60); Est Glom Filt Rate - Afr Amer 13 mL/min (>60); Estimated Creatinine Clearance 9.51 ml/min; Glucose 120 mg/dL (74-106); Potassium 5.1 mmol/L (3.5-5.1); Sodium Level 139 mmol/L (136-145)
[2019-01-18 14:28] LABS: BUN 123 mg/dL (7-18)
--- NOTE | 2019-01-18 14:49 | ED.RN ---
1430 [facility] d/c [facility]
[2019-01-18 14:53] LABS: Mucous, Urine 0 SEEN /hpf (<or=2+); Red Blood Cells-Urine 0 SEEN /hpf (0-5); Squamous Epithelial Cells - UA 0 SEEN /hpf (5-10)
[2019-01-18 14:54] LABS: Color, Urine Yellow (Yellow); Glucose, Dipstick Normal (Normal); Ketone-Dipstick Negative (Negative); Leukocyte Esterase-Dipstick 25 /ul (Negative); Nitrite-Dipstick Negative (Negative); Occult Blood-Urine Negative /ul (Negative); Protein-Dipstick 15 mg/dl (Negative); Specific Gravity, Urine 1.025 (1.002-1.030); Urine Clarity Sl. Cloudy (Clear); Urine Urobilinogen Normal (Normal)
[2019-01-18 14:55] LABS: Urine Bilirubin Dipstick 3 mg/dL (Negative)
[2019-01-18] MEDS: Ondansetron 4 MG/2 ML Vial IV (14:56)
[2019-01-18 15:01] LABS: Bacteria RARE /hpf (None Seen); White Blood Cells 0-5 SEEN /hpf (0-5)
[2019-01-18 15:41] LABS: Lactic Acid 1.7 mmol/L (0.4-2.0)
--- NOTE | 2019-01-18 16:16 | RAD_ITS ---
STUDY: X-RAY CHEST REASON FOR EXAM: Female, 63 years old. Unresponsive, nausea, vomiting diarrhea TECHNIQUE: AP COMPARISON: 01/18/2019 FINDINGS: RADIATION OFFICER shunt catheter is unchanged. EKG leads project over the chest. Left subclavian central venous catheter is in place with the tip extending to the upper SVC. Linear density in the left lung base is stable. There is no demonstrated pleural abnormality. Normal size heart. Normal mediastinum and ade. Normal visualized pulmonary arteries. Normal visualized aortic arch and descending thoracic aorta. No acute bony process. There is no demonstrated abnormality of the visualized soft tissue structures of the upper abdomen. RAD/Chest 1 View (Portable) IMPRESSION: 1. Left subclavian central venous catheter with tip terminating in the upper SVC. 2. Similar left lower lobe atelectasis or early infiltrate. Electronically Signed: Bryon Vazquez MD (Brooks) at 16:46 EDT , Service support ,
--- NOTE | 2019-01-18 16:29 | NURSING ---
HOSPITALIST PAGED DR TEJADA PAGED
--- NOTE | 2019-01-18 16:31 | NURSING ---
DR JAMES FOR DR KARIMI
--- NOTE | 2019-01-18 16:34 | PCM.HP.STD ---
History of Present Illness Date of Admission: 01/18/19 Chief Complaint: altered mental status The patient is a 63 year old F with past medical history as outlined below. She is a resident of a correction and was recently admitted and discharged from [facility] about 2 weeks ago for debility due to mechanical fall. At that time, she was admitted from home and during admission was deemed to be too weak to return home after evaluation by physical therapy. She was therefore discharged to the correction where she was found confused and staff said that she started yelling out and grabbing at things in front of her. ED note. 1 patient was brought to the ED, bradycardia documentation it was thought that she may have a left facial droop and decreased responsiveness and was also stated that patient had had vomiting and diarrhea for several days. Not much history could be obtained and at time of review patient was completely obtunded and unresponsive and so no history could be taken. On admission in the ED a stroke alert was called on account of suspicion for stroke. CT of the head was negative and CT angiogram done was also negative. She was noted to have an aneurysmal clip by the CT angiogram. ED staff discussed with [facility] neurology and was decided that IV TPA was not indicated. Patient was initially hypotensive on admission, with blood pressure being in the 70s. She was given IV fluids and blood pressure marginally increased to 93/53. Labs done showed sodium of 139 with potassium of 5.1 and bicarb of 9 with BUN of 123 and creatinine of 4.46. Baseline creatinine is within normal limits. Lactic acid was only 1.7 initial troponin was negative. CBC showed hemoglobin of 10 and white cell count of 12.4; platelets were 385. Chest x-ray does show developing atelectasis or infiltrate in the left lung base. She was also noted to be hypothermic and a bear hugger was put on her to help with active rewarming she was started on IV vancomycin and Zosyn on account of concerns of aspiration pneumonia. Due to significant uremia rectal exam was done to rule out any GI bleed; specimen was Hemoccult negative and there was no gross blood seen. At time of hospitalist review, patient was very obtunded and had no response whatsoever to severe sternal rub. She looked very dry and blood pressure was down in the 70s systolic. Hospitalist informed ED doctor about need. Blood gas and for patient to be intubated before being sent up to the ICU. Of note, patient had had a central line placed in the ED already. She has been admitted to be managed for septic shock likely due to aspiration pneumonia, SALLY likely prerenal due to severe dehydration from diarrhea and vomiting, and anion gap metabolic acidosis likely due to SALLY, as well as acute hypoxic respiratory failure due to aspiration pneumonia. Of note, blood gases came back with pH of 7.06 and PCO2 of 21.4 as well as PO2 of 73. [] Past Medical History Past Medical History (Chronic Problems): Chronic Problems Debility (Chronic) Nicotine abuse (Chronic) Anemia (Chronic) Depression (Chronic) Essential (primary) hypertension (Chronic) Hypothyroid (Chronic) Hydrocephalus (Chronic) Brain aneurysm (Chronic) Status post hip surgery (Chronic) Allergies amoxicillin Allergy (Verified 01/18/19 14:33) Hives yeast infection Home Medications: Ambulatory Orders Medication Instructions Recorded Amitriptyline HCl 25 mg PO QHS 12/11/14 Diclofenac [Voltaren] 75 mg PO BIDCM 12/11/14 Pregabalin [Lyrica] 50 mg PO BID 12/11/14 Baclofen 10 mg PO BID 11/22/15 Dicyclomine HCl [Bentyl] 10 mg PO TIDCM 07/11/16 Escitalopram Oxalate [Lexapro] 10 mg PO DAILY 07/11/16 Multivitamins,Therapeutic 1 tab PO DAILY 07/11/16 [Multivitamin] Pravastatin [Pravachol] 40 mg PO QHS 07/11/16 buPROPion SR [Wellbutrin SR (150mg 150 mg PO BID 07/11/16 tablets)] Albuterol Aerosols [Ventolin 2.5 mg INHALATION Q2H PRN PRN #0 07/16/16 Aerosols] vial.neb. Lisinopril [Zestril] 10 mg PO DAILY #30 tablet 07/24/16 Cetirizine HCl [Zyrtec] 10 mg PO DAILY 12/26/18 Levothyroxine [Synthroid] 50 mcg PO DAILY 12/26/18 Acetaminophen [Tylenol] 500 mg PO Q6H PRN PRN #1 tab 12/30/18 Cholecalciferol (VIT D3) [Vitamin 2,000 unit PO DAILY tab 12/30/18 D3] Menthol [Bengay Vanishing Scent] 1 applic TOPICAL 4X/DAY PRN PRN 12/30/18 tube Nicotine [Nicoderm Cq] 21 mg TRANSDERM. DAILY patch 12/30/18 Senna/Docusate Sodium [Senokot-S] 1 tab PO BID tab 12/30/18 Oxycodone HCl 2.5 mg PO Q4H PRN 01/18/19 Surgical History: total hip arthroplasty, - - vp securities shunt, aneurysm clipped in brain. Lives: Detention Smoking Status: Unknown if ever smoked - *Family History Paternal History Items: Hypertension, - - pancreatic cancer Maternal History Items: - - TIAs Review of Systems Unable to obtain accurate/complete ROS d/t: unable to do review of systems as patient is very obtunded and unresponsive VTE Information - Inpt Only VTE Present on Admission: No VTE Pharm Prophylaxis ordered?: Yes Patient Problems: Active and Suspected Problems HCAP (healthcare-associated pneumonia) (Acute) Dehydration (Acute) Sepsis (Acute) Hypovolemic shock (Acute) ARF (acute renal failure) (Acute) Delirium (Acute) Uremic acidosis (Acute) - Physical Exam Vitals/I&O's: Vital Signs Temp Pulse Resp BP Pulse Ox 94.8 F L 79 20 H 93/53 L 95 01/18/19 16:14 01/18/19 16:14 01/18/19 16:14 01/18/19 16:14 01/18/19 16:14 Oxygen Delivery Method Room Air Weight: 125 lb 3.561 oz Body Mass Index (BMI) 24.4 Finger Stick Blood Glucose 119 Intake and Output for Last 24 Hours 01/16/19 01/17/19 01/18/19 23:59 23:59 23:59 Intake Total 3000 / 3000 Balance 3000 / 3000 General: - - patient obtunded, no response to active sternal rub; Jayme Coma Scale ~ 3/15 HEENT: Atraumatic, PERRLA, EOMI, Normocephalic Oral: Dry Mucosa - very dry mucosa Neck: Supple, No JVD, Negative Carotid Bruits Lungs: - - decreased breath sounds bibasally, no wheezes or crackles Cardiovascular: Regular rate, Regular Rhythm, Normal S1, Normal S2, No murmurs Abdomen: Bowel Sounds Present, Soft, Non Tender, Non-Distended, No Hepato-splenomegaly Extremities: No clubbing, No cyanosis, No edema, Capillary Refill Less than 3 Seconds Skin: No rashes, No breakdown Musculoskeletal: No Tenderness to Palpation of Joints or Extremities Lymphatic: No Cervical, Supraclavicular, or Inguinal Adenopathy Neurological: - - severe obtundation, Mclean Coma scale of 3/15 Microbiology Past 72 Hours 01/18/19 15:35 Stool Stool Occult Blood (SHANON) - Final Laboratory Results 01/18/19 14:00: WBC 12.4 H, RBC 3.09 L, Hgb 10.0 L, Hct 33.6 L, MCV 108.7 H, MCH 32.4 H, MCHC 29.8 L, RDW Std Deviation 61.0 H, RDW Coeff of Jesus 15.2 H, Plt Count 385, MPV 10.3, Immature Gran % (Auto) 0.300, Neut % (Auto) 84.2 H, Lymph % (Auto) 8.1 L, Knott % (Auto) 4.9, Eos % (Auto) 2.3, Baso % (Auto) 0.2, Absolute Neuts (auto) 10.4 H, Absolute Lymphs (auto) 1.00, Nucleated RBC % 0 01/18/19 14:00: PT 14.8, INR 1.2, APTT 29.1 01/18/19 14:00: Sodium 139, Potassium 5.1, Chloride 117 H, Carbon Dioxide 9.0 L*, Anion Gap 13, BUN 123 H*, Creatinine 4.46 H, Estim Creat Clear Calc 9.51, Est GFR (MDRD) Af Amer 13 L, Est GFR (MDRD) Non-Af 11 L, BUN/Creatinine Ratio 27.6 H, Glucose 120 H, Calcium 8.5, Troponin I < 0.015 01/18/19 14:45: Urine Color Yellow, Urine Clarity Sl. Cloudy, Urine pH 5.0, Ur Specific [place] 1.025, Urine Protein 15 H, Urine Glucose (UA) Normal, Urine Ketones Negative, Urine Occult Blood Negative, Urine Nitrite Negative, Urine Bilirubin 3 H, Urine Urobilinogen Normal, Ur Leukocyte Esterase 25 H, Urine RBC 0 SEEN, Urine WBC 0-5 SEEN, Ur Squamous Epith Cells 0 SEEN, Urine Bacteria RARE, Urine Mucus 0 SEEN 01/18/19 14:50: Lactic Acid 1.[address] 01/18/19 13:59 IMPRESSION: Since 12/26/2018, stable exam. No acute intracranial hemorrhage. N.B. : The above information has been verbally conveyed by Bryon Vazquez MD (Brooks) to Ren Cortez on 01/18/2019 14:22:37 (ET). Electronically Signed: Bryon Vazquez MD (Brooks) at 14:23 EDT , Service support , ADDENDUM: 01/18/19 1430 IMPRESSION: Since 12/26/2018, stable exam. No acute intracranial hemorrhage. N.B. : The above information has been verbally conveyed by Bryon Vazquez MD (Brooks) to Ren Cortez on 01/18/2019 14:22:37 (ET). Electronically Signed: Bryon Vazquez MD (Brooks) at 14:23 EDT , Service support , Head/Neck CTA 01/18/19 13:59 IMPRESSION: 1. No intracranial/[place] aneurysm. Prior aneurysm repair (right parasellar) noted. 2. Minimal atherosclerosis of the carotid bulbs without hemodynamically significant stenosis. Electronically Signed: Bryon Vazquez MD (Brooks) at 14:30 EDT , Service support , Chest X-Ray 01/18/19 16:16 IMPRESSION: 1. Left subclavian central venous catheter with tip terminating in the upper SVC. 2. Similar left lower lobe atelectasis or early infiltrate. Electronically Signed: Bryon Vazquez MD (Brooks) at 16:46 EDT , Service support , Current Medications Sodium Chloride () 1,000 mls @ 999 mls/hr IV .Q1H1M AYO Stop: 01/18/19 16:35 Last Infusion: 01/18/19 15:27 Dose: Infused Documented by: Vancomycin HCl 750 mg/ Sodium (Chloride) 265 mls @ 250 mls/hr IV X1 ONE Stop: 01/18/19 17:03 Sodium Chloride () 1,000 mls @ 15 mls/hr IV .Q48H [facility] Assessment/Plan All Active Problems Fall (Acute) Left hip pain (Acute) Hypokalemia (Acute) Pelvic fracture (Acute) UTI (urinary tract infection) due to Enterococcus (Resolved) HCAP (healthcare-associated pneumonia) (Acute) Dehydration (Acute) Sepsis (Acute) Hypovolemic shock (Acute) ARF (acute renal failure) (Acute) Delirium (Acute) Uremic acidosis (Acute) 63-year-old female admitted with a complaint of altered mental status. 1. Acute hypoxic respiratory failure due to aspiration pneumonia CXR showed developing infiltrate or atelectasis in left lung base respiratory rate was 20 at time of review admit to ICU'; patient intubated in ED started on IV vancomycin and aztreonam in ED; will continue (patient allergic to penicillins) blood cultures obtained check urine for strep and legionella breathing treatments with duonebs prn receiving barn custodian consulted 2. Anion gap metabolic acidosis likely due to uremia bicarb was 9 on admission; anion gap was 13 ABG showed pH of 7.06, with bicarb of 6 and CO2 of 21; appears to be a pure anion gap acidosis BUn is 123; Cr is 4.46, with a baseline <1 hydrate with IVF; started on pressors o/a of septic shock receiving barn custodian consulted repeat ABG and BMP q2hrly for now 3. Septic shock due to aspiration pneumonia BP was down in 70s systolic at time of review received a total of 2L of IVF, but remained hypotensive started on levophed for blood pressure support in ED 2D echo ordered receiving barn custodian consulted insert stewart catheter to monitor intake and output 4. SALLY likely prerenal Cr is 4.46, baseline is normal BUN is 123 consult nephrology check urine electrolytes to assess FeNA check renal USG hydrate with IVF; also vasopressor support 5. Aspiration pneumonia: as under 1. 6. Hyeprtension: BP meds on hold o/.a of septic shock 7. Hypothyroidism: On Synthroid 50 mcg daily. 8. Hyperlipidemia: On statin DVT prophylaxis: Lovenox Code status: per ED doctor, SNF staff said she is full code. Documentation brought from [facility] states patient is full code Total critical care time spent seeing patient and coordinating care: 50 mins Code Visit Inpatient E&M: 90581 Init Hosp L3 Procedures: 87628 Critial Care 1st Hr
--- NOTE | 2019-01-18 16:35 | NURSING ---
ICU KORAM DELIRIUM, HCAP, ARF, HYPOVOLEMIC SHOCK
--- NOTE | 2019-01-18 16:44 | NURSING ---
ICU 3
[2019-01-18] MEDS: 0.9% Normal Saline 1,000 ML 15 ML IV (16:45)
[2019-01-18] MEDS: Midazolam 2 MG/2 ML Syringe 3 MG IV (16:55)
--- NOTE | 2019-01-18 17:00 | CPS ---
Critical value given to Dr Cortez
[2019-01-18 17:06] LABS: Allen Test POS; Base Excess -24 mmol/L (-2 to +2); Bicarbonate 6.1 mmol/L (22-26); Blood Gas Specimen Type ART; O2 Delivery Device Room Air; PO2 73 mmHG (75-100); SITE R Brachial; SO2 87 % (95-99); Time Given 1655; Total Carbon Dioxide 7 mmol/L; pCO2 21.4 mmHg (35-45); pH 7.06 (7.35-7.45)
--- NOTE | 2019-01-18 17:07 | RAD_ITS ---
STUDY: X-RAY CHEST REASON FOR EXAM: Female, 63 years old. ET tube placement TECHNIQUE: Single frontal view of the chest. COMPARISON: January 18, 2019 FINDINGS: New ET tube 2.9 cm above the ciro. SNIPPER shunt on the right again noted. Left subclavian catheter unchanged. The lungs are clear and expanded. There is no demonstrated pleural abnormality. Normal size heart. Normal mediastinum and ade. Normal visualized pulmonary arteries. Normal visualized aortic arch and descending thoracic aorta. Normal visualized thoracic spine. Normal visualized ribs, clavicles, and shoulders. There is no demonstrated abnormality of the visualized soft tissue structures of the upper abdomen. RAD/Chest 1 View (Portable) IMPRESSION: New ET tube as above. Stable chest. Electronically Signed: Luke Houser MD at 19:05 EDT , Service support ,
--- NOTE | 2019-01-18 17:15 | ED.RN ---
[facility] STAFF NOTIFIED OF PT ADMISSION. AGATHA SEN STATES SHE HAS MADE NUMEROUS ATTEMPTS TO CALL PT'S SON ZACH [phone] AND RECEIVED ONLY A BUSY SIGNAL BUT WILL CONTINUE TO TRY TO REACH HIM. THIS NURSE ATTEMPTED AT THIS SAME NUMBER AND ALSO RECEIVED A BUSY SIGNAL.
--- NOTE | 2019-01-18 17:58 | NURSING ---
3 rings and a pair of earrings were placed in a denture cup at bedside w/pt's name label on them.
[2019-01-18] MEDS: Propofol 10MG/Ml 1,000 MG/100 ML Bottle 3.4 MG CONT INF (18:00)
[2019-01-18] MEDS: fentaNYL drip 100 ML 2.5 MCG IV (18:00)
[2019-01-18] MEDS: 0.9% Saline Lock 10 ML Syringe IV ×2 (20:01→21:11)
[2019-01-18 20:12] LABS: International Normalized Ratio 1.3; Prothrombin Time (Protime)PT. 15.5 SECONDS (11.7-14.9)
[2019-01-18 20:13] LABS: Partial Thromboplast Time 31.4 Seconds (24.1-36.2)
--- NOTE | 2019-01-18 20:15 | CPS ---
Critical ABG results read back to physician
[2019-01-18 20:20] LABS: CPK Total, Creatine Kinase 116 U/L (26-192); Triglycerides 213 mg/dL
[2019-01-18 20:23] LABS: Urine Sodium 47 mmol/L (Not Establ.)
[2019-01-18 20:25] LABS: Base Excess -23 mmol/L (-2 to +2); Bicarbonate 6.9 mmol/L (22-26); Blood Gas Specimen Type ALINE; FI02 30; Mode A-C; O2 Delivery Device Vent; PEEP 5; PO2 146 mmHG (75-100); RR 14; SITE R Radial; SO2 98 % (95-99); Time Given 2010; Total Carbon Dioxide 8 mmol/L; Vt 450; pCO2 24.1 mmHg (35-45); pH 7.07 (7.35-7.45)
[2019-01-18 20:38] LABS: Anion Gap 11 (5-15); BUN 109 mg/dL (7-18); BUN/Creat Ratio 32.3 RATIO (10-20); Calcium,Total 7.2 mg/dL (8.5-10.1); Chloride 122 mmol/L (98-107); Creatinine, Serum 3.37 mg/dL (0.55-1.02); EST Glomerular Filtration Rate 15 mL/min (>60); Est Glom Filt Rate - Afr Amer 18 mL/min (>60); Estimated Creatinine Clearance 12.59 ml/min; Glucose 133 mg/dL (74-106); Potassium 5.1 mmol/L (3.5-5.1); Sodium Level 142 mmol/L (136-145)
[2019-01-18] MEDS: Sodium Bicarbonate 8.4% 50 ML Syringe 50 MEQ IV (21:10)
[2019-01-18] MEDS: Chlorhexidine 15 ML PO (22:02)
[2019-01-18 22:52] LABS: Anion Gap 10 (5-15); BUN 102 mg/dL (7-18); BUN/Creat Ratio 34.1 RATIO (10-20); Calcium,Total 7.5 mg/dL (8.5-10.1); Chloride 124 mmol/L (98-107); Creatinine, Serum 2.99 mg/dL (0.55-1.02); EST Glomerular Filtration Rate 17 mL/min (>60); Est Glom Filt Rate - Afr Amer 20 mL/min (>60); Estimated Creatinine Clearance 16.81 ml/min; Glucose 136 mg/dL (74-106); Potassium 4.7 mmol/L (3.5-5.1); Sodium Level 145 mmol/L (136-145)
[2019-01-19] VITALS (72 sets, daily range): BP systolic 95–147; BP diastolic 43–84; PULSE 72–99; RESP 12–27; TEMP 37.8–38.2; O2SAT 21–100
--- NOTE | 2019-01-19 01:53 | RAD_ITS ---
STUDY: X-RAY - ABDOMEN/PELVIS REASON FOR EXAM: Female, 63 years old. Nasogastric tube placement. TECHNIQUE: Single AP view of the abdomen / pelvis. COMPARISON: None. FINDINGS: Normal visualized lung bases. There is a nasogastric tube with the tip just below the diaphragm and side hole noted in the distal esophagus. There is mild nonspecific distention of the colon. The small bowel is normal. There is no demonstrated free abdominal air. The visualized liver, spleen and kidneys are grossly normal in size and morphology. Normal soft tissue structures. Normal visualized osseous structures. RAD/Abdomen Single View IMPRESSION: Nonspecific distention of the colon as described above. Electronically Signed: Jeri Abarca MD at 3:08 EDT , Service support ,
--- NOTE | 2019-01-19 02:25 | RAD_ITS ---
STUDY: X-RAY - ABDOMEN/PELVIS REASON FOR EXAM: Female, 63 years old. Nasogastric tube placement. TECHNIQUE: Single AP view of the abdomen / pelvis. COMPARISON: None. FINDINGS: There is a nasogastric tube in place, slightly advanced in the interval with tip projecting over the gastric fundus and sidehole just above the hemidiaphragm. There is distention of the colon more significant throughout the transverse and descending portion. There is no demonstrated free abdominal air. The visualized liver, spleen and kidneys are grossly normal in size and morphology. Normal soft tissue structures. Normal visualized osseous structures. RAD/Abdomen Single View (Portable) IMPRESSION: Nasogastric tube is described above, recommend advancing approximately 7 cm. Nonspecific distention of the colon. Electronically Signed: Jeri Abarca MD at 3:11 EDT , Service support ,
--- NOTE | 2019-01-19 02:26 | RAD_ITS ---
STUDY: X-RAY - ABDOMEN/PELVIS REASON FOR EXAM: Female, 63 years old. Nasogastric tube. TECHNIQUE: Single AP view of the abdomen / pelvis. COMPARISON: None. FINDINGS: Redemonstrated is nasogastric tube with the sidehole just beyond the EG junction and tip within the gastric fundus. Nonspecific distention of the colon predominantly the transverse and descending portion. There are a few loops of small bowel distended up to 2.7 cm. There is no demonstrated free abdominal air. The visualized liver, spleen and kidneys are grossly normal in size and morphology. Normal soft tissue structures. Normal visualized osseous structures. RAD/Abdomen Single View (Portable) IMPRESSION: Nasogastric tube has described above. Nonspecific colonic distention. Electronically Signed: Jeri Abarca MD at 3:13 EDT , Service support ,
--- NOTE | 2019-01-19 02:27 | RAD_ITS ---
STUDY: X-RAY - ABDOMEN/PELVIS REASON FOR EXAM: Female, 63 years old. Nasogastric tube placement. TECHNIQUE: Single AP view of the abdomen / pelvis. COMPARISON: 01/11/2019. FINDINGS: Normal visualized lung bases. Redemonstrated is a nasogastric tube with sidehole within the gastric fundus and tip along the gastric body. There is distention of the colon more so along the descending portion and transverse region. There is mild distention of some of the small bowel loops seen over the pelvis up to 2.4-2.7 cm. There is no demonstrated free abdominal air. The visualized liver, spleen and kidneys are grossly normal in size and morphology. Normal soft tissue structures. Normal visualized osseous structures. RAD/Abdomen Single View (Portable) IMPRESSION: Normal location of the nasogastric tube. Nonspecific distention of the colon and some of the small bowel loops which may indicate ileus, cannot exclude distal colonic obstruction. Electronically Signed: Jeri Abarca MD at 3:13 EDT , Service support ,
[2019-01-19 04:59] LABS: Absolute Lymphocyte Count 0.93 X10^3/uL (0.83-4.51); Basophil# 0.03 X10^3/uL; Basophil% 0.3 % (0-1); Eosinophil# 0.58 X10^3/uL; Eosinophils% 5.5 % (0-5); Hematocrit 26.2 % (37-47); Hemoglobin 8.3 g/dL (12.0-15.0); Lymphocyte # 0.93 X10^3/ul (4.0); Lymphocyte % 8.8 % (19-41); Mean Corp Hgb Conc 31.7 g/dL (32-36); Mean Corpuscular Hgb 33.1 pg (27.0-32.0); Mean Corpuscular Volume 104.4 fL (81-99); Mean Platelet Vol. 10.2 fl (6.2-12.0); Monocyte# 0.96 X10^3/uL; Monocyte% 9.1 % (0-10); NRBC Flagged by Analyzer 0 % (0-5); Neutrophil # 8.04 X10^3/uL (2.7-7.7); Neutrophil % 75.9 % (47-70); POSITIVE MORPHOLOGY YES; Platelet Count 304 K/mm3 (150-450); RBC Distribution Width CV 15.5 % (11.6-14.6); RBC Distribution Width SD 59.4 fl (35.1-43.9); Red Blood Count 2.51 M/mm3 (4.2-5.4); White Blood Count 10.6 K/mm3 (4.4-11.0)
[2019-01-19 05:25] LABS: ALB/GLOB Ratio 0.8 RATIO (0.9-2.4); AST(SGOT) 11 U/L (15-37); Alanine Aminotransfer ALT/SGPT 18 U/L (13-56); Albumin, Serum 2.7 g/dL (3.2-5.0); Alkaline Phosphatase 118 U/L (45-117); Anion Gap 9 (5-15); BUN 93 mg/dL (7-18); BUN/Creat Ratio 39.2 RATIO (10-20); Calcium,Total 7.6 mg/dL (8.5-10.1); Chloride 124 mmol/L (98-107); Creatinine, Serum 2.37 mg/dL (0.55-1.02); EST Glomerular Filtration Rate 22 mL/min (>60); Est Glom Filt Rate - Afr Amer 27 mL/min (>60); Estimated Creatinine Clearance 21.21 ml/min; Globulin 3.6 g/dL (2.2-4.2); Glucose 125 mg/dL (74-106); Phosphorus 4.3 mg/dL (2.5-4.9); Potassium 4.1 mmol/L (3.5-5.1); Protein, Total 6.3 g/dL (6.4-8.2); Sodium Level 146 mmol/L (136-145)
[2019-01-19 05:35] LABS: Differential Indicated SCAN CRITERIA MET
--- NOTE | 2019-01-19 05:55 | US_ITS ---
STUDY: RENAL ULTRASOUND - COMPLETE REASON FOR EXAM: Female, 63 years old. Acute renal failure TECHNIQUE: Ultrasound evaluation of the kidneys was performed with real-time and static bland-scale imaging. COMPARISON: None. FINDINGS: RIGHT KIDNEY: Normal location of the right kidney, which is normal in size. The right kidney measures 9.3 x 4.8 x 4.8 cm. There is a normal cortex of the right kidney. The renal cortex measures 1.7 cm. There is no right renal mass or cyst. There are no right renal calculi. There is no right hydronephrosis. DISTAL RIGHT URETER: There is non-visualization of the distal right ureter. There is no demonstrated right ureterovesical junction calculus. There is no demonstrated right ureteral jet. LEFT KIDNEY: Normal location of the left kidney, which is normal in size. The left kidney measures 10.3 x 4.6 x 5.1 cm. There is a normal cortex of the left kidney. The renal cortex measures 1.5 cm. Simple anechoic cyst of the left kidney measures 1.6 cm with well-defined margins. There are no left renal calculi. There is no left hydronephrosis. DISTAL LEFT URETER: There is non-visualization of the distal left ureter. There is no demonstrated left ureterovesical junction calculus. There is no demonstrated left ureteral jet. BLADDER: The urinary bladder is decompressed by Abbott catheter. There is no demonstrated mass within the urinary bladder. There are no demonstrated bladder calculi. US/Kidney and Bladder IMPRESSION: 1. No hydronephrosis. 2. Simple left renal cyst. 3. Abbott catheter. Electronically Signed: Bryon Vazquez MD (Brooks) at 10:02 EDT , Service support ,
--- NOTE | 2019-01-19 06:02 | CPS ---
Critical results read to physician
[2019-01-19 06:06] LABS: Differential Comment SCANNED; Macrocytosis 2+
--- NOTE | 2019-01-19 06:09 | CPS ---
ABG results given to FIELD BROOMER silviano. Will give results to ICU physician.
[2019-01-19 06:15] LABS: Base Excess -16 mmol/L (-2 to +2); Bicarbonate 10.3 mmol/L (22-26); Blood Gas Specimen Type ART; FI02 25; Mode A-C; O2 Delivery Device Vent; PEEP 5; RR 14; SITE OTHER; Time Given 518; Total Carbon Dioxide 11 mmol/L; Vt 450; pCO2 21.6 mmHg (35-45); pH 7.29 (7.35-7.45)
--- NOTE | 2019-01-19 08:45 | CON.PCM_ITS ---
Problem List (1) Nicotine abuse Status: Chronic (2) Dehydration Status: Acute (3) Sepsis Status: Acute (4) Hypovolemic shock Status: Acute (5) ARF (acute renal failure) Status: Acute (6) Delirium Status: Acute (7) Depression Status: Chronic (8) Essential (primary) hypertension Status: Chronic (9) Hip fracture Status: Resolved Qualifiers: Encounter type: sequela Laterality: left Qualified Code(s): S72.002S - Fracture of unspecified part of neck of left femur, sequela (10) Brain aneurysm Status: Chronic (11) Status post hip surgery Status: Chronic Reason for Consult Date of Consultation: 01/19/19 Reason for Consultation: Respiratory failure History of Present Illness: The patient is a 63 year old F, with past medical history listed below, who presented to [facility] on 01/18/2019 secondary to change of mental status. Patient was at a care home and reportedly suddenly started yelling out and grabbing at things. By time paramedics arrived, patient reportedly had a facial droop and decreased level of responsiveness. Patient reportedly has had nausea, vomiting and diarrhea for several days, but history is relatively limited. On arrival to the ER, there was some concern for stroke. Patient had a complete stroke work-up and concern for previous aneurysmal clipping. Metabolic work-up did show significant uremia. Patient was bolused with IV fluids, but remained hypotensive. Hemoccult was negative. There was some concern for hypovolemic shock. Patient was administered Zosyn and vancomycin for concerns of possible aspiration pneumonia. Central line was placed and patient was placed on Levophed. Patient's mental status continued to deteriorate, so patient was intubated and transferred to the intensive care unit for further monitoring. While in the intensive care unit, patient has had a variable blood pressure. Patient's arterial line and blood pressure cuff are not always correlating. Oxygenation is not been an issue, but patient did spike a fever to 38.2 ?C. Patient has remained on mechanical ventilation at low FiO2. No diarrhea has been reported. Patient was taken off of all sedation at approximately 5:15 AM and was not very responsive. Patient will open her eyes to suctioning and follows commands intermittently. Unable to obtain a review of systems. Unable to contact family members as son is only listed next of kin and number is nonfunctioning. Patient reportedly was at home and had recently had a fall resulting in a hip fracture. Patient was un able to be at home safely, so was placed in a care home just recently. History is very suspect at this time. Past Medical History Past Medical History (Chronic Problems): Chronic Problems Debility (Chronic) Nicotine abuse (Chronic) Anemia (Chronic) Depression (Chronic) Essential (primary) hypertension (Chronic) Hypothyroid (Chronic) Hydrocephalus (Chronic) Brain aneurysm (Chronic) Status post hip surgery (Chronic) Allergies amoxicillin Allergy (Verified 01/18/19 14:33) Hives yeast infection Home Medications: Ambulatory Orders Medication Instructions Recorded Amitriptyline HCl 25 mg PO QHS 12/11/14 Diclofenac [Voltaren] 75 mg PO BIDCM 12/11/14 Pregabalin [Lyrica] 50 mg PO BID 12/11/14 Baclofen 10 mg PO BID 11/22/15 Dicyclomine HCl [Bentyl] 10 mg PO TIDCM 07/11/16 Escitalopram Oxalate [Lexapro] 10 mg PO DAILY 07/11/16 Multivitamins,Therapeutic 1 tab PO DAILY 07/11/16 [Multivitamin] Pravastatin [Pravachol] 40 mg PO QHS 07/11/16 buPROPion SR [Wellbutrin SR (150mg 150 mg PO BID 07/11/16 tablets)] Albuterol Aerosols [Ventolin 2.5 mg INHALATION Q2H PRN PRN #0 07/16/16 Aerosols] vial.neb. Lisinopril [Zestril] 10 mg PO DAILY #30 tablet 07/24/16 Cetirizine HCl [Zyrtec] 10 mg PO DAILY 12/26/18 Levothyroxine [Synthroid] 50 mcg PO DAILY 12/26/18 Acetaminophen [Tylenol] 500 mg PO Q6H PRN PRN #1 tab 12/30/18 Cholecalciferol (VIT D3) [Vitamin 2,000 unit PO DAILY tab 12/30/18 D3] Menthol [Bengay Vanishing Scent] 1 applic TOPICAL 4X/DAY PRN PRN 12/30/18 tube Nicotine [Nicoderm Cq] 21 mg TRANSDERM. DAILY patch 12/30/18 Senna/Docusate Sodium [Senokot-S] 1 tab PO BID tab 12/30/18 Oxycodone HCl 2.5 mg PO Q4H PRN 01/18/19 Surgical History: total hip arthroplasty, - - [employer] and skin shunt, aneurysm clipped in brain. Lives: Care Home Smoking Status: Unknown if ever smoked - *Family History Paternal History Items: Hypertension, - - pancreatic cancer Maternal History Items: - - TIAs Review of Systems Comment: See HPI Patient Problems: Active and Suspected Problems HCAP (healthcare-associated pneumonia) (Acute) Dehydration (Acute) Sepsis (Acute) Hypovolemic shock (Acute) ARF (acute renal failure) (Acute) Delirium (Acute) Uremic acidosis (Acute) Objective: Multiple imaging studies were reviewed. Chest x-ray shows no acute infiltrate. CT scan was relatively unremarkable outside of a prior aneurysmal repair. Abdominal exam shows a possible [employer] shunt and ileus. - Physical Exam Vitals/I&O's: Vital Signs Temp Pulse Resp BP Pulse Ox 38.1 C H 90 14 115/52 L 100 01/19/19 06:00 01/19/19 06:45 01/19/19 06:30 01/19/19 06:45 01/19/19 06:30 Oxygen Delivery Method Mechanical Ventilator Weight: 54 kg Body Mass Index (BMI) 23.3 Finger Stick Blood Glucose 119 Intake and Output for Last 24 Hours 01/17/19 01/18/19 01/19/19 23:59 23:59 23:59 Intake Total 3612.76 / 3616.16 105.05 / 105.05 Output Total 1425 / 1425 Balance 3612.76 / 2741.16 -1319.95 / -1319.95 General: - - Intubated. Not sedated. Opens eyes to voice, but following commands intermittently. Sensation appears to be intact bilaterally. HEENT: Atraumatic, PERRLA, EOMI, - - [employer] shunt palpated Oral: No Gingival or Mucosal Lesions/ Ulcerations, Dry Mucosa Neck: Supple, No JVD, No Nodes, Trachea Midline Lungs: Clear to auscultation, Normal air movement, No rhonchi, No wheeze, No rales, - - Symmetric expansion. No dullness to percussion. Cardiovascular: Regular rate, Regular Rhythm, Normal S1, Normal S2, No murmurs, No rub noted, No Gallop Abdomen: Bowel Sounds Present, Soft, Non Tender, Non-Distended Extremities: No clubbing, No cyanosis, No edema, Capillary Refill Less than 3 Seconds Skin: No rashes, No breakdown Musculoskeletal: No Tenderness to Palpation of Joints or Extremities Lymphatic: No Cervical, Supraclavicular, or Inguinal Adenopathy Neurological: - - No facial droop appreciated. Opens eyes to voice, but following commands intermittently. Psych/Mental Status: Flat Affect Microbiology Past 72 Hours 01/18/19 23:20 Urine Catheter - Abbott Streptococcus pneumoniae Antigen (M - Final 01/18/19 23:20 Urine Catheter - Abbott Legionella Antigen - Final 01/18/19 15:35 Stool Stool Occult Blood (SHANON) - Final Laboratory Tests 01/19/19 01/19/19 01/19/19 Range/Units 05:22 04:45 04:45 WBC 10.6 (4.4-11.0) K/mm3 RBC 2.51 L (4.2-5.4) M/mm3 Hgb 8.3 L (12.0-15.0) g/dL Hct 26.2 L (37-47) % MCV 104.4 H (81-99) fL MCH 33.1 H (27.0-32.0) pg MCHC 31.7 L (32-36) g/dL RDW Std Deviation 59.4 H (35.1-43.9) fl RDW Coeff of Jesus 15.5 H (11.6-14.6) % Plt Count 304 (150-450) K/mm3 MPV 10.2 (6.2-12.0) fl Immature Gran % (Auto) 0.400 (0.0-0.9) % Neut % (Auto) 75.9 H (47-70) % Lymph % (Auto) 8.8 L (19-41) % [place] % (Auto) 9.1 (0-10) % Eos % (Auto) 5.5 H (0-5) % Baso % (Auto) 0.3 (0-1) % Absolute Neuts (auto) 8.0 H (2.0-7.7) X10^3/uL Absolute Lymphs (auto) 0.93 (0.83-4.51) X10^3/uL Nucleated RBC % 0 (0-5) % Differential Comment SCANNED Macrocytosis 2+ PT (11.7-14.9) SECONDS INR APTT (24.1-36.2) Seconds Specimen Type ART Sample Site OTHER pH 7.29 L (7.35-7.45) Bicarbonate Actual 10.3 L (22-26) mmol/L POC Total CO2 11 mmol/L Base Excess -16 L (-2 to +2) mmol/L O2 Saturation TNP (95-99) % O2 % 25 ABG pCO2 21.6 L (35-45) mmHg ABG pO2 TNP (75-100) mmHG Niall Test NA Respiration Rate 14 O2 Delivery Device Vent Minute Volume 7.00 Vent Mode A-C Tidal Volume 450 POC PEEP 5 Blood Gas Notified Whom ICU Blood Gas Notified Time 518 Sodium 146 H (136-145) mmol/L Potassium 4.1 (3.5-5.1) mmol/L Chloride 124 H (98-107) mmol/L Carbon Dioxide 13.0 L (21.0-32.0) mmol/L Anion Gap 9 (5-15) BUN 93 H (7-18) mg/dL Creatinine 2.37 H (0.55-1.02) mg/dL Estim Creat Clear Calc 21.21 ml/min Est GFR (MDRD) Af Amer 27 L (>60) mL/min Est GFR (MDRD) Non-Af 22 L (>60) mL/min BUN/Creatinine Ratio 39.2 H (10-20) RATIO Glucose 125 H (74-106) mg/dL Lactic Acid (0.4-2.0) mmol/L Calcium 7.6 L (8.5-10.1) mg/dL Phosphorus 4.3 (2.5-4.9) mg/dL Total Bilirubin 0.40 (0.20-1.00) mg/dL AST 11 L (15-37) U/L ALT 18 (13-56) U/L Alkaline Phosphatase 118 H (45-117) U/L Total Creatine Kinase (26-192) U/L Troponin I (<0.045) ng/mL Total Protein 6.3 L (6.4-8.2) g/dL Albumin 2.7 L (3.2-5.0) g/dL Globulin 3.6 (2.2-4.2) g/dL Albumin/Globulin Ratio 0.8 L (0.9-2.4) RATIO Triglycerides ( - 199) mg/dL Urine Color (Yellow) Urine Clarity (Clear) Urine pH (5.0 - 8.0) Ur Specific [place] (1.002-1.030) Urine Protein (Negative) mg/dl Urine Glucose (UA) (Normal) mg/dl Urine Ketones (Negative) mg/dl Urine Occult Blood (Negative) /ul Urine Nitrite (Negative) Urine Bilirubin (Negative) mg/dL Urine Urobilinogen (Normal) mg/dl Ur Leukocyte Esterase (Negative) /ul Urine RBC (0-5) /hpf Urine WBC (0-5) /hpf Ur Squamous Epith Cells (5-10) /hpf Urine Bacteria (None Seen) /hpf Urine Mucus (<or=2+) /hpf Ur Random Sodium (Not Establ.) mmol/L Urine Creatinine (NO RANGE EST.) mg/dL 01/18/19 01/18/19 01/18/19 Range/Units 22:20 20:15 19:55 WBC (4.4-11.0) K/mm3 RBC (4.2-5.4) M/mm3 Hgb (12.0-15.0) g/dL Hct (37-47) % MCV (81-99) fL MCH (27.0-32.0) pg MCHC (32-36) g/dL RDW Std Deviation (35.1-43.9) fl RDW Coeff of Jesus (11.6-14.6) % Plt Count (150-450) K/mm3 MPV (6.2-12.0) fl Immature Gran % (Auto) (0.0-0.9) % Neut % (Auto) (47-70) % Lymph % (Auto) (19-41) % [place] % (Auto) (0-10) % Eos % (Auto) (0-5) % Baso % (Auto) (0-1) % Absolute Neuts (auto) (2.0-7.7) X10^3/uL Absolute Lymphs (auto) (0.83-4.51) X10^3/uL Nucleated RBC % (0-5) % Differential Comment Macrocytosis PT (11.7-14.9) SECONDS INR APTT (24.1-36.2) Seconds Specimen Type SIERRA Sample Site R Radial pH 7.07 L* (7.35-7.45) Bicarbonate Actual 6.9 L (22-26) mmol/L POC Total CO2 8 mmol/L Base Excess -23 L (-2 to +2) mmol/L O2 Saturation 98 (95-99) % O2 % 30 ABG pCO2 24.1 L (35-45) mmHg ABG pO2 146 H (75-100) mmHG Niall Test Respiration Rate 14 O2 Delivery Device Vent Minute Volume 6.00 Vent Mode A-C Tidal Volume 450 POC PEEP 5 Blood Gas Notified Whom [facility] Blood Gas Notified Time 2009 Sodium 145 (136-145) mmol/L Potassium 4.7 (3.5-5.1) mmol/L Chloride 124 H (98-107) mmol/L Carbon Dioxide 11.0 L (21.0-32.0) mmol/L Anion Gap 10 (5-15) BUN 102 H* (7-18) mg/dL Creatinine 2.99 H (0.55-1.02) mg/dL Estim Creat Clear Calc 16.81 ml/min Est GFR (MDRD) Af Amer 20 L (>60) mL/min Est GFR (MDRD) Non-Af 17 L (>60) mL/min BUN/Creatinine Ratio 34.1 H (10-20) RATIO Glucose 136 H (74-106) mg/dL Lactic Acid (0.4-2.0) mmol/L Calcium 7.5 L (8.5-10.1) mg/dL Phosphorus (2.5-4.9) mg/dL Total Bilirubin (0.20-1.00) mg/dL AST (15-37) U/L ALT (13-56) U/L Alkaline Phosphatase (45-117) U/L Total Creatine Kinase 116 (26-192) U/L Troponin I (<0.045) ng/mL Total Protein (6.4-8.2) g/dL Albumin (3.2-5.0) g/dL Globulin (2.2-4.2) g/dL Albumin/Globulin Ratio (0.9-2.4) RATIO Triglycerides 213 H ( - 199) mg/dL Urine Color (Yellow) Urine Clarity (Clear) Urine pH (5.0 - 8.0) Ur Specific [place] (1.002-1.030) Urine Protein (Negative) mg/dl Urine Glucose (UA) (Normal) mg/dl Urine Ketones (Negative) mg/dl Urine Occult Blood (Negative) /ul Urine Nitrite (Negative) Urine Bilirubin (Negative) mg/dL Urine Urobilinogen (Normal) mg/dl Ur Leukocyte Esterase (Negative) /ul Urine RBC (0-5) /hpf Urine WBC (0-5) /hpf Ur Squamous Epith Cells (5-10) /hpf Urine Bacteria (None Seen) /hpf Urine Mucus (<or=2+) /hpf Ur Random Sodium (Not Establ.) mmol/L Urine Creatinine (NO RANGE EST.) mg/dL 01/18/19 01/18/19 01/18/19 Range/Units 19:55 19:55 19:30 WBC (4.4-11.0) K/mm3 RBC (4.2-5.4) M/mm3 Hgb (12.0-15.0) g/dL Hct (37-47) % MCV (81-99) fL MCH (27.0-32.0) pg MCHC (32-36) g/dL RDW Std Deviation (35.1-43.9) fl RDW Coeff of Jesus (11.6-14.6) % Plt Count (150-450) K/mm3 MPV (6.2-12.0) fl Immature Gran % (Auto) (0.0-0.9) % Neut % (Auto) (47-70) % Lymph % (Auto) (19-41) % [place] % (Auto) (0-10) % Eos % (Auto) (0-5) % Baso % (Auto) (0-1) % Absolute Neuts (auto) (2.0-7.7) X10^3/uL Absolute Lymphs (auto) (0.83-4.51) X10^3/uL Nucleated RBC % (0-5) % Differential Comment Macrocytosis PT 15.5 H (11.7-14.9) SECONDS INR 1.3 APTT 31.4 (24.1-36.2) Seconds Specimen Type Sample Site pH (7.35-7.45) Bicarbonate Actual (22-26) mmol/L POC Total CO2 mmol/L Base Excess (-2 to +2) mmol/L O2 Saturation (95-99) % O2 % ABG pCO2 (35-45) mmHg ABG pO2 (75-100) mmHG Niall Test Respiration Rate O2 Delivery Device Minute Volume Vent Mode Tidal Volume POC PEEP Blood Gas Notified Whom Blood Gas Notified Time Sodium 142 (136-145) mmol/L Potassium 5.1 (3.5-5.1) mmol/L Chloride 122 H (98-107) mmol/L Carbon Dioxide 9.0 L* (21.0-32.0) mmol/L Anion Gap 11 (5-15) BUN 109 H* (7-18) mg/dL Creatinine 3.37 H (0.55-1.02) mg/dL Estim Creat Clear Calc 12.59 ml/min Est GFR (MDRD) Af Amer 18 L (>60) mL/min Est GFR (MDRD) Non-Af 15 L (>60) mL/min BUN/Creatinine Ratio 32.3 H (10-20) RATIO Glucose 133 H (74-106) mg/dL Lactic Acid (0.4-2.0) mmol/L Calcium 7.2 L (8.5-10.1) mg/dL Phosphorus (2.5-4.9) mg/dL Total Bilirubin (0.20-1.00) mg/dL AST (15-37) U/L ALT (13-56) U/L Alkaline Phosphatase (45-117) U/L Total Creatine Kinase (26-192) U/L Troponin I (<0.045) ng/mL Total Protein (6.4-8.2) g/dL Albumin (3.2-5.0) g/dL Globulin (2.2-4.2) g/dL Albumin/Globulin Ratio (0.9-2.4) RATIO Triglycerides ( - 199) mg/dL Urine Color (Yellow) Urine Clarity (Clear) Urine pH (5.0 - 8.0) Ur Specific [place] (1.002-1.030) Urine Protein (Negative) mg/dl Urine Glucose (UA) (Normal) mg/dl Urine Ketones (Negative) mg/dl Urine Occult Blood (Negative) /ul Urine Nitrite (Negative) Urine Bilirubin (Negative) mg/dL Urine Urobilinogen (Normal) mg/dl Ur Leukocyte Esterase (Negative) /ul Urine RBC (0-5) /hpf Urine WBC (0-5) /hpf Ur Squamous Epith Cells (5-10) /hpf Urine Bacteria (None Seen) /hpf Urine Mucus (<or=2+) /hpf Ur Random Sodium 47 (Not Establ.) mmol/L Urine Creatinine (NO RANGE EST.) mg/dL 01/18/19 01/18/19 01/18/19 Range/Units 19:30 16:55 14:50 WBC (4.4-11.0) K/mm3 RBC (4.2-5.4) M/mm3 Hgb (12.0-15.0) g/dL Hct (37-47) % MCV (81-99) fL MCH (27.0-32.0) pg MCHC (32-36) g/dL RDW Std Deviation (35.1-43.9) fl RDW Coeff of Jesus (11.6-14.6) % Plt Count (150-450) K/mm3 MPV (6.2-12.0) fl Immature Gran % (Auto) (0.0-0.9) % Neut % (Auto) (47-70) % Lymph % (Auto) (19-41) % [place] % (Auto) (0-10) % Eos % (Auto) (0-5) % Baso % (Auto) (0-1) % Absolute Neuts (auto) (2.0-7.7) X10^3/uL Absolute Lymphs (auto) (0.83-4.51) X10^3/uL Nucleated RBC % (0-5) % Differential Comment Macrocytosis PT (11.7-14.9) SECONDS INR APTT (24.1-36.2) Seconds Specimen Type ART Sample Site R Brachial pH 7.06 L* (7.35-7.45) Bicarbonate Actual 6.1 L (22-26) mmol/L POC Total CO2 7 mmol/L Base Excess -24 L (-2 to +2) mmol/L O2 Saturation 87 L (95-99) % O2 % ABG pCO2 21.4 L (35-45) mmHg ABG pO2 73 L (75-100) mmHG Niall Test POS Respiration Rate O2 Delivery Device Room Air Minute Volume Vent Mode Tidal Volume POC PEEP Blood Gas Notified Whom ED Blood Gas Notified Time 1655 Sodium (136-145) mmol/L Potassium (3.5-5.1) mmol/L Chloride (98-107) mmol/L Carbon Dioxide (21.0-32.0) mmol/L Anion Gap (5-15) BUN (7-18) mg/dL Creatinine (0.55-1.02) mg/dL Estim Creat Clear Calc ml/min Est GFR (MDRD) Af Amer (>60) mL/min Est GFR (MDRD) Non-Af (>60) mL/min BUN/Creatinine Ratio (10-20) RATIO Glucose (74-106) mg/dL Lactic Acid 1.7 (0.4-2.0) mmol/L Calcium (8.5-10.1) mg/dL Phosphorus (2.5-4.9) mg/dL Total Bilirubin (0.20-1.00) mg/dL AST (15-37) U/L ALT (13-56) U/L Alkaline Phosphatase (45-117) U/L Total Creatine Kinase (26-192) U/L Troponin I (<0.045) ng/mL Total Protein (6.4-8.2) g/dL Albumin (3.2-5.0) g/dL Globulin (2.2-4.2) g/dL Albumin/Globulin Ratio (0.9-2.4) RATIO Triglycerides ( - 199) mg/dL Urine Color (Yellow) Urine Clarity (Clear) Urine pH (5.0 - 8.0) Ur Specific [place] (1.002-1.030) Urine Protein (Negative) mg/dl Urine Glucose (UA) (Normal) mg/dl Urine Ketones (Negative) mg/dl Urine Occult Blood (Negative) /ul Urine Nitrite (Negative) Urine Bilirubin (Negative) mg/dL Urine Urobilinogen (Normal) mg/dl Ur Leukocyte Esterase (Negative) /ul Urine RBC (0-5) /hpf Urine WBC (0-5) /hpf Ur Squamous Epith Cells (5-10) /hpf Urine Bacteria (None Seen) /hpf Urine Mucus (<or=2+) /hpf Ur Random Sodium (Not Establ.) mmol/L Urine Creatinine 52.00 (NO RANGE EST.) mg/dL 01/18/19 01/18/19 01/18/19 Range/Units 14:45 14:00 14:00 WBC (4.4-11.0) K/mm3 RBC (4.2-5.4) M/mm3 Hgb (12.0-15.0) g/dL Hct (37-47) % MCV (81-99) fL MCH (27.0-32.0) pg MCHC (32-36) g/dL RDW Std Deviation (35.1-43.9) fl RDW Coeff of Jesus (11.6-14.6) % Plt Count (150-450) K/mm3 MPV (6.2-12.0) fl Immature Gran % (Auto) (0.0-0.9) % Neut % (Auto) (47-70) % Lymph % (Auto) (19-41) % [place] % (Auto) (0-10) % Eos % (Auto) (0-5) % Baso % (Auto) (0-1) % Absolute Neuts (auto) (2.0-7.7) X10^3/uL Absolute Lymphs (auto) (0.83-4.51) X10^3/uL Nucleated RBC % (0-5) % Differential Comment Macrocytosis PT 14.8 (11.7-14.9) SECONDS INR 1.2 APTT 29.1 (24.1-36.2) Seconds Specimen Type Sample Site pH (7.35-7.45) Bicarbonate Actual (22-26) mmol/L POC Total CO2 mmol/L Base Excess (-2 to +2) mmol/L O2 Saturation (95-99) % O2 % ABG pCO2 (35-45) mmHg ABG pO2 (75-100) mmHG Niall Test Respiration Rate O2 Delivery Device Minute Volume Vent Mode Tidal Volume POC PEEP Blood Gas Notified Whom Blood Gas Notified Time Sodium 139 (136-145) mmol/L Potassium 5.1 (3.5-5.1) mmol/L Chloride 117 H (98-107) mmol/L Carbon Dioxide 9.0 L* (21.0-32.0) mmol/L Anion Gap 13 (5-15) BUN 123 H* (7-18) mg/dL Creatinine 4.46 H (0.55-1.02) mg/dL Estim Creat Clear Calc 9.51 ml/min Est GFR (MDRD) Af Amer 13 L (>60) mL/min Est GFR (MDRD) Non-Af 11 L (>60) mL/min BUN/Creatinine Ratio 27.6 H (10-20) RATIO Glucose 120 H (74-106) mg/dL Lactic Acid (0.4-2.0) mmol/L Calcium 8.5 (8.5-10.1) mg/dL Phosphorus (2.5-4.9) mg/dL Total Bilirubin (0.20-1.00) mg/dL AST (15-37) U/L ALT (13-56) U/L Alkaline Phosphatase (45-117) U/L Total Creatine Kinase (26-192) U/L Troponin I < 0.015 (<0.045) ng/mL Total Protein (6.4-8.2) g/dL Albumin (3.2-5.0) g/dL Globulin (2.2-4.2) g/dL Albumin/Globulin Ratio (0.9-2.4) RATIO Triglycerides ( - 199) mg/dL Urine Color Yellow (Yellow) Urine Clarity Sl. Cloudy (Clear) Urine pH 5.0 (5.0 - 8.0) Ur Specific [place] 1.025 (1.002-1.030) Urine Protein 15 H (Negative) mg/dl Urine Glucose (UA) Normal (Normal) mg/dl Urine Ketones Negative (Negative) mg/dl Urine Occult Blood Negative (Negative) /ul Urine Nitrite Negative (Negative) Urine Bilirubin 3 H (Negative) mg/dL Urine Urobilinogen Normal (Normal) mg/dl Ur Leukocyte Esterase 25 H (Negative) /ul Urine RBC 0 SEEN (0-5) /hpf Urine WBC 0-5 SEEN (0-5) /hpf Ur Squamous Epith Cells 0 SEEN (5-10) /hpf Urine Bacteria RARE (None Seen) /hpf Urine Mucus 0 SEEN (<or=2+) /hpf Ur Random Sodium (Not Establ.) mmol/L Urine Creatinine (NO RANGE EST.) mg/dL 01/18/19 Range/Units 14:00 WBC 12.4 H (4.4-11.0) K/mm3 RBC 3.09 L (4.2-5.4) M/mm3 Hgb 10.0 L (12.0-15.0) g/dL Hct 33.6 L (37-47) % MCV 108.7 H (81-99) fL MCH 32.4 H (27.0-32.0) pg MCHC 29.8 L (32-36) g/dL RDW Std Deviation 61.0 H (35.1-43.9) fl RDW Coeff of Jesus 15.2 H (11.6-14.6) % Plt Count 385 (150-450) K/mm3 MPV 10.3 (6.2-12.0) fl Immature Gran % (Auto) 0.300 (0.0-0.9) % Neut % (Auto) 84.2 H (47-70) % Lymph % (Auto) 8.1 L (19-41) % [place] % (Auto) 4.9 (0-10) % Eos % (Auto) 2.3 (0-5) % Baso % (Auto) 0.2 (0-1) % Absolute Neuts (auto) 10.4 H (2.0-7.7) X10^3/uL Absolute Lymphs (auto) 1.00 (0.83-4.51) X10^3/uL Nucleated RBC % 0 (0-5) % Differential Comment Macrocytosis PT (11.7-14.9) SECONDS INR APTT (24.1-36.2) Seconds Specimen Type Sample Site pH (7.35-7.45) Bicarbonate Actual (22-26) mmol/L POC Total CO2 mmol/L Base Excess (-2 to +2) mmol/L O2 Saturation (95-99) % O2 % ABG pCO2 (35-45) mmHg ABG pO2 (75-100) mmHG Niall Test Respiration Rate O2 Delivery Device Minute Volume Vent Mode Tidal Volume POC PEEP Blood Gas Notified Whom Blood Gas Notified Time Sodium (136-145) mmol/L Potassium (3.5-5.1) mmol/L Chloride (98-107) mmol/L Carbon Dioxide (21.0-32.0) mmol/L Anion Gap (5-15) BUN (7-18) mg/dL Creatinine (0.55-1.02) mg/dL Estim Creat Clear Calc ml/min Est GFR (MDRD) Af Amer (>60) mL/min Est GFR (MDRD) Non-Af (>60) mL/min BUN/Creatinine Ratio (10-20) RATIO Glucose (74-106) mg/dL Lactic Acid (0.4-2.0) mmol/L Calcium (8.5-10.1) mg/dL Phosphorus (2.5-4.9) mg/dL Total Bilirubin (0.20-1.00) mg/dL AST (15-37) U/L ALT (13-56) U/L Alkaline Phosphatase (45-117) U/L Total Creatine Kinase (26-192) U/L Troponin I (<0.045) ng/mL Total Protein (6.4-8.2) g/dL Albumin (3.2-5.0) g/dL Globulin (2.2-4.2) g/dL Albumin/Globulin Ratio (0.9-2.4) RATIO Triglycerides ( - 199) mg/dL Urine Color (Yellow) Urine Clarity (Clear) Urine pH (5.0 - 8.0) Ur Specific [place] (1.002-1.030) Urine Protein (Negative) mg/dl Urine Glucose (UA) (Normal) mg/dl Urine Ketones (Negative) mg/dl Urine Occult Blood (Negative) /ul Urine Nitrite (Negative) Urine Bilirubin (Negative) mg/dL Urine Urobilinogen (Normal) mg/dl Ur Leukocyte Esterase (Negative) /ul Urine RBC (0-5) /hpf Urine WBC (0-5) /hpf Ur Squamous Epith Cells (5-10) /hpf Urine Bacteria (None Seen) /hpf Urine Mucus (<or=2+) /hpf Ur Random Sodium (Not Establ.) mmol/L Urine Creatinine (NO RANGE EST.) mg/dL Clinical Impression(s) from Imaging Studies Brain CT 01/18/19 13:59 IMPRESSION: Since 12/26/2018, stable exam. No acute intracranial hemorrhage. N.B. : The above information has been verbally conveyed by Bryon Vazquez MD ([place]) to Ren Cortez on 01/18/2019 14:22:37 (ET). Electronically Signed: Bryon Vazquez MD (Brooks) at 14:23 EDT , Service support , ADDENDUM: 01/18/19 4663 IMPRESSION: Since 12/26/2018, stable exam. No acute intracranial hemorrhage. N.B. : The above information has been verbally conveyed by Bryon Vazquez MD (Brooks) to Ren Cortze on 01/18/2019 14:22:37 (ET). Electronically Signed: Bryon Vazquez MD (Brooks) at 14:23 EDT , Service support , Chest X-Ray 01/18/19 13:59 IMPRESSION: Developing atelectasis or infiltrate in the left lung base. Electronically Signed: Bryon Vazquez MD ([place]) at 15:02 EDT , Service support , Head/Neck CTA 01/18/19 13:59 IMPRESSION: 1. No intracranial[place] aneurysm. Prior aneurysm repair (right parasellar) noted. 2. Minimal atherosclerosis of the carotid bulbs without hemodynamically significant stenosis. Electronically Signed: Bryon Vazquez MD ([place]) at 14:30 EDT , Service support , Chest X-Ray 01/18/19 16:16 IMPRESSION: 1. Left subclavian central venous catheter with tip terminating in the upper SVC. 2. Similar left lower lobe atelectasis or early infiltrate. Electronically Signed: Bryon Vazquez MD ([place]) at 16:46 EDT , Service support , Chest X-Ray 01/18/19 17:07 IMPRESSION: New ET tube as above. Stable chest. Electronically Signed: Luke Houser MD at 19:05 EDT , Service support , KUB X-Ray 01/19/19 01:53 IMPRESSION: Nonspecific distention of the colon as described above. Electronically Signed: Jeri Abarca MD at 3:08 EDT , Service support , KUB X-Ray 01/19/19 02:25 IMPRESSION: Nasogastric tube is described above, recommend advancing approximately 7 cm. Nonspecific distention of the colon. Electronically Signed: Jeri Abarca MD at 3:11 EDT , Service support , KUB X-Ray 01/19/19 02:26 IMPRESSION: Nasogastric tube has described above. Nonspecific colonic distention. Electronically Signed: Jeri Abarca MD at 3:13 EDT , Service support , KUB X-Ray 01/19/19 02:27 IMPRESSION: Normal location of the nasogastric tube. Nonspecific distention of the colon and some of the small bowel loops which may indicate ileus, cannot exclude distal colonic obstruction. Electronically Signed: Jeri Abarca MD at 3:13 EDT , Service support , Current Medications Albuterol Sulfate (Ventolin Aerosols) 2.5 mg INHALATION Q2H PRN PRN PRN Reason: SOB &/OR WHEEZING Chlorhexidine Gluconate () 15 ml PO BID GOOD [facility] Last Admin: 01/18/19 22:02 Dose: 15 ml Documented by: Chlorhexidine Gluconate () 1 each TOPICAL DAILY [facility] Dextrose (D50w Syringe) 0 gm IV X1 PRN; Protocol PRN Reason: Hypoglycemia Enoxaparin Sodium (Lovenox) 30 mg SC DAILY@1000 [facility] Glucagon () 1 mg IM .X1 PRN PRN Reason: Hypoglycemia Sodium Chloride () 1,000 mls @ 15 mls/hr IV .Q48H [facility] Last Admin: 01/18/19 16:45 Dose: 15 mls/hr Documented by: Norepinephrine Bitartrate 8 mg (/ Sodium Chloride) 250 mls @ 9.375 mls/hr CONT INF .[id number] [facility]; Protocol Last Titration: 01/19/19 06:45 Dose: 0 mcg/min, 0 mls/hr Documented by: Pantoprazole Sodium 40 mg/ (Sodium Chloride) 110 mls @ 330 mls/hr IV Q24 [facility] Last Infusion: 01/18/19 20:22 Dose: Infused Documented by: Fentanyl () 100 mls @ 2.5 mls/hr IV UD [facility]; Protocol Last Titration: 01/19/19 04:00 Dose: 0 mcg/hr, 0 mls/hr Documented by: Propofol (Diprivan) 1,000 mg in 100 mls @ 3.24 mls/hr CONT INF .Q12H [facility]; Protocol Last Admin: 01/19/19 05:50 Dose: Not Given Documented by: Aztreonam 1 gm/ Sodium (Chloride) 50 mls @ 150 mls/hr IV Q8 [facility] Last Infusion: 01/19/19 05:59 Dose: Infused Documented by: Sodium Chloride () 250 mls @ 15 mls/hr IV .[id number] PRN PRN Reason: Saline Flush Sodium Bicarbonate 100 meq/ (Dextrose) 1,150 mls @ 100 mls/hr IV .[id number] [facility] Last Admin: 01/18/19 21:14 Dose: 100 mls/hr Documented by: Ondansetron HCl (Zofran) 4 mg IV Q6H PRN PRN PRN Reason: Nausea Sodium Chloride () 10 - 40 ml IV UD PRN PRN Reason: Multilumen/Ferris Flush Last Admin: 01/18/19 21:11 Dose: 40 ml Documented by: Sodium Chloride (0.9% Nacl (Sterile) Posiflush) 10 - 40 ml IV UD PRN PRN Reason: Port access or dressing change Sodium Chloride () 10 - 40 ml IV UD PRN PRN Reason: SALINE FLUSH Assessment/Plan Active and Suspected Problems HCAP (healthcare-associated pneumonia) (Acute) Dehydration (Acute) Sepsis (Acute) Hypovolemic shock (Acute) ARF (acute renal failure) (Acute) Delirium (Acute) Uremic acidosis (Acute) RECOMMENDATIONS: 1. Transition from Azactam to meropenem 2. Continue mechanical ventilation for now 3. Initiate tube feeds 4. Possible abdominal imaging pending tube feed trial 5. Await nephrology recommendations, continue aggressive hydration 6. Attempt to contact next of kin to clarify history IMPRESSIONS: 1. Acute respiratory failure secondary to encephalopathy Clinical suspicion for metabolic encephalopathy secondary to uremia. Patient intubated secondary to airway protection. Chest x-ray does not show any significant infiltrate on my evaluation. Patient did spike a fever overnight. Patient will be transition from aztreonam to meropenem. Continue with bank for now. Spontaneous awakening and breathing trials are okay, but continue to monitor mental status prior to extubation. 2. Metabolic encephalopathy secondary to acute kidney injury with uremia Patient appears to be responding to conservative therapy. Continue to minimize sedation as tolerated. Patient will remain intubated until mental status improves. Continue with delirium protocol. 3. Septic shock with unclear source Patient does have a history of a [employer] shunt in the past. Patient reportedly having nausea, vomiting and diarrhea recently. However, patient has not had a bowel movement since being here. Patient will be kept on empiric antibiotics for now. Patient currently is off of Levophed. Await echocardiogram. Sputum culture has been ordered, but patient is not making any sputum for collection right now. Blood and urine cultures have already been obtained. Patient is not showing any signs of meningismus at this time. 4. Acute kidney injury Unclear if this is secondary to septic shock versus volume depletion associated with reported nausea, vomiting and diarrhea. Nausea vomiting and diarrhea may be secondary to uremia. Patient appears to be responding to conservative therapy at this time. Continue to monitor urine output. 5. Hypertension/hyperthyroidism/hyperlipidemia/poor history/unable to contact next of kin Complicates care, management, recovery and prognosis. Antihypertensives have been held secondary to hypotension. Okay to continue with statin and Synthroid. Social work is attempting to contact next of kin. Patient will be a full code until further information is available TIME: 37 minutes critical care time spent addressing patient's acute respiratory failure, metabolic encephalopathy, septic shock, acute kidney injury, review of all data and collaboration with care team. (6:30 AM to 9:30 AM) Code Visit [id number]: [id number] Critical care first hour
[2019-01-19] MEDS: Enoxaparin 30 MG/0.3 ML Syringe SC (09:51)
[2019-01-19] MEDS: 0.9% Saline Lock 10 ML Syringe IV ×2 (09:52→09:53)
[2019-01-19] MEDS: CHLORHEXIDINE GLUC 2% CLOTH 1 EACH TOWELETTE TOPICAL (09:52)
[2019-01-19] MEDS: Chlorhexidine 15 ML PO ×2 (09:56→21:53)
--- NOTE | 2019-01-19 11:36 | PN_ITS ---
Patient Problems: Active and Suspected Problems HCAP (healthcare-associated pneumonia) (Acute) Dehydration (Acute) Sepsis (Acute) Hypovolemic shock (Acute) ARF (acute renal failure) (Acute) Delirium (Acute) Uremic acidosis (Acute) Subjective: Intubated and sedated Vitals/I&O's: Vital Signs Temp Pulse Resp BP Pulse Ox 100.4 F H 97 27 H 106/49 L 98 01/19/19 08:00 01/19/19 10:58 01/19/19 10:58 01/19/19 09:00 01/19/19 10:58 Oxygen Delivery Method Mechanical Ventilator Weight: 119 lb 0.794 oz Body Mass Index (BMI) 23.3 Finger Stick Blood Glucose 119 Intake and Output for Last 24 Hours 01/17/19 01/18/19 01/19/19 23:59 23:59 23:59 Intake Total 3612.76 / 3616.16 1513.80 / 1513.80 Output Total 1425 / 1425 Balance 3612.76 / 2741.16 88.80 / 88.80 General: - - Intubated, and opens eyes HEENT: Atraumatic, PERRLA, Normocephalic Oral: Dry Mucosa Neck: Supple, No JVD Lungs: Clear to auscultation, Normal air movement, No rhonchi, No wheeze, No rales Cardiovascular: Regular rate, Regular Rhythm, Normal S1, Normal S2, No murmurs Abdomen: Soft, Non Tender, Non-Distended, No Hepato-splenomegaly Extremities: No edema, Capillary Refill Less than 3 Seconds Skin: No rashes, No breakdown Neurological: - - Intubated and does not follow commands Psych/Mental Status: Flat Affect, - - Intubated Microbiology Past 72 Hours 01/18/19 23:20 Urine Catheter - Abbott Streptococcus pneumoniae Antigen (M - Final 01/18/19 23:20 Urine Catheter - Abbott Legionella Antigen - Final 01/18/19 15:35 Stool Stool Occult Blood (SHANON) - Final Laboratory Results 01/18/19 14:00: WBC 12.4 H, RBC 3.09 L, Hgb 10.0 L, Hct 33.6 L, MCV 108.7 H, MCH 32.4 H, MCHC 29.8 L, RDW Std Deviation 61.0 H, RDW Coeff of Jesus 15.2 H, Plt Count 385, MPV 10.3, Immature Gran % (Auto) 0.300, Neut % (Auto) 84.2 H, Lymph % (Auto) 8.1 L, [place] % (Auto) 4.9, Eos % (Auto) 2.3, Baso % (Auto) 0.2, Absolute Neuts (auto) 10.4 H, Absolute Lymphs (auto) 1.00, Nucleated RBC % 0 01/18/19 14:00: PT 14.8, INR 1.2, APTT 29.1 01/18/19 14:00: Sodium 139, Potassium 5.1, Chloride 117 H, Carbon Dioxide 9.0 L* , Anion Gap 13, BUN 123 H*, Creatinine 4.46 H, Estim Creat Clear Calc 9.51, Est GFR (MDRD) Af Amer 13 L, Est GFR (MDRD) Non-Af 11 L, BUN/Creatinine Ratio 27.6 H , Glucose 120 H, Calcium 8.5, Troponin I < 0.015 01/18/19 14:45: Urine Color Yellow, Urine Clarity Sl. Cloudy, Urine pH 5.0, Ur Specific [place] 1.025, Urine Protein 15 H, Urine Glucose (UA) Normal, Urine Ketones Negative, Urine Occult Blood Negative, Urine Nitrite Negative, Urine Bilirubin 3 H, Urine Urobilinogen Normal, Ur Leukocyte Esterase 25 H, Urine RBC 0 SEEN, Urine WBC 0-5 SEEN, Ur Squamous Epith Cells 0 SEEN, Urine Bacteria RARE, Urine Mucus 0 SEEN 01/18/19 14:50: Lactic Acid 1.7 01/18/19 16:55: Specimen Type ART, Sample Site R Brachial, pH 7.06 L*, Bicarbonate Actual 6.1 L, POC Total CO2 7, Base Excess -24 L, O2 Saturation 87 L , ABG pCO2 21.4 L, ABG pO2 73 L, Niall Test POS, O2 Delivery Device Room Air, Blood Gas Notified Whom ED , Blood Gas Notified Time 0365 01/18/19 19:30: Urine Creatinine 52.00 01/18/19 19:30: Ur Random Sodium 47 01/18/19 19:55: PT 15.5 H, INR 1.3, APTT 31.4 01/18/19 19:55: Sodium 142, Potassium 5.1, Chloride 122 H, Carbon Dioxide 9.0 L* , Anion Gap 11, BUN 109 H*, Creatinine 3.37 H, Estim Creat Clear Calc 12.59, Est GFR (MDRD) Af Amer 18 L, Est GFR (MDRD) Non-Af 15 L, BUN/Creatinine Ratio 32.3 H , Glucose 133 H, Calcium 7.2 L 01/18/19 19:55: Total Creatine Kinase 116, Triglycerides 213 H 01/18/19 20:15: Specimen Type SIERRA, Sample Site R Radial, pH 7.07 L*, Bicarbonate Actual 6.9 L, POC Total CO2 8, Base Excess -23 L, O2 Saturation 98, O2 % 30, ABG pCO2 24.1 L, ABG pO2 146 H, Respiration Rate 14, O2 Delivery Device Vent, Minute Volume 6.00, Vent Mode A-C, Tidal Volume 450, POC PEEP 5, Blood Gas Notified Whom STEVEN GRAY, Blood Gas Notified Time 200901/18/19 22:20: Sodium 145, Potassium 4.7, Chloride 124 H, Carbon Dioxide 11.0 L , Anion Gap 10, BUN 102 H*, Creatinine 2.99 H, Estim Creat Clear Calc 16.81, Est GFR (MDRD) Af Amer 20 L, Est GFR (MDRD) Non-Af 17 L, BUN/Creatinine Ratio 34.1 H , Glucose 136 H, Calcium 7.5 L 01/19/19 04:45: WBC 10.6, RBC 2.51 L, Hgb 8.3 L, Hct 26.2 L, MCV 104.4 H, MCH 33.1 H, MCHC 31.7 L, RDW Std Deviation 59.4 H, RDW Coeff of Jesus 15.5 H, Plt Count 304, MPV 10.2, Immature Gran % (Auto) 0.400, Neut % (Auto) 75.9 H, Lymph % (Auto) 8.8 L, [place] % (Auto) 9.1, Eos % (Auto) 5.5 H, Baso % (Auto) 0.3, Absolute Neuts (auto) 8.0 H, Absolute Lymphs (auto) 0.93, Nucleated RBC % 0, Differential Comment SCANNED, Macrocytosis 2+ 01/19/19 04:45: Sodium 146 H, Potassium 4.1, Chloride 124 H, Carbon Dioxide 13.0 L, Anion Gap 9, BUN 93 H, Creatinine 2.37 H, Estim Creat Clear Calc 21.21, Est GFR (MDRD) Af Amer 27 L, Est GFR (MDRD) Non-Af 22 L, BUN/Creatinine Ratio 39.2 H , Glucose 125 H, Calcium 7.6 L, Phosphorus 4.3, Total Bilirubin 0.40, AST 11 L, ALT 18, Alkaline Phosphatase 118 H, Total Protein 6.3 L, Albumin 2.7 L, Globulin 3.6, Albumin/Globulin Ratio 0.8 L 01/19/19 05:22: Specimen Type ART, Sample Site OTHER, pH 7.29 L, Bicarbonate Actual 10.3 L, POC Total CO2 11, Base Excess -16 L, O2 Saturation TNP, O2 % 25, ABG pCO2 21.6 L, ABG pO2 TNP, Niall Test NA, Respiration Rate 14, O2 Delivery De vice Vent, Minute Volume 7.00, Vent Mode A-C, Tidal Volume 450, POC PEEP 5, Blood Gas Notified Whom ICU MD, Blood Gas Notified Time 518 Current Medications Acetaminophen (Tylenol Liquid) 650 mg PO Q4H PRN PRN PRN Reason: Pain or Fever >100.5 Albuterol Sulfate (Ventolin Aerosols) 2.5 mg INHALATION Q2H PRN PRN PRN Reason: SOB &/OR WHEEZING Chlorhexidine Gluconate () 15 ml PO BID [facility] Last Admin: 01/19/19 09:56 Dose: 15 ml Documented by: Chlorhexidine Gluconate () 1 each TOPICAL DAILY [facility] Last Admin: 01/19/19 09:52 Dose: 1 each Documented by: Dextrose (D50w Syringe) 0 gm IV X1 PRN; Protocol PRN Reason: Hypoglycemia Enoxaparin Sodium (Lovenox) 30 mg SC DAILY@1000 [facility] Last Admin: 01/19/19 09:51 Dose: 30 mg Documented by: Glucagon () 1 mg IM .X1 PRN PRN Reason: Hypoglycemia Sodium Chloride () 1,000 mls @ 15 mls/hr IV .Q48H [facility] Last Infusion: 01/19/19 10:00 Dose: 0 mls/hr Documented by: Norepinephrine Bitartrate 8 mg (/ Sodium Chloride) 250 mls @ 9.375 mls/hr CONT INF .[id number] [facility]; Protocol Last Titration: 01/19/19 06:45 Dose: 0 mcg/min, 0 mls/hr Documented by: Pantoprazole Sodium 40 mg/ (Sodium Chloride) 110 mls @ 330 mls/hr IV Q24 [facility] Last Admin: 01/19/19 10:22 Dose: 330 mls/hr Documented by: Fentanyl () 100 mls @ 2.5 mls/hr IV UD [facility]; Protocol Last Titration: 01/19/19 04:00 Dose: 0 mcg/hr, 0 mls/hr Documented by: Propofol (Diprivan) 1,000 mg in 100 mls @ 3.24 mls/hr CONT INF .Q12H [facility]; Protocol Last Admin: 01/19/19 05:50 Dose: Not Given Documented by: Sodium Chloride () 250 mls @ 15 mls/hr IV .[id number] PRN PRN Reason: Saline Flush Sodium Bicarbonate 100 meq/ (Dextrose) 1,100 mls @ 100 mls/hr IV .Q11H [facility] Last Admin: 01/19/19 09:02 Dose: 100 mls/hr Documented by: Meropenem 1 gm/ Sodium (Chloride) 120 mls @ 33 mls/hr IV BID [facility] Ondansetron HCl (Zofran) 4 mg IV Q6H PRN PRN PRN Reason: Nausea Sodium Chloride () 10 - 40 ml IV UD PRN PRN Reason: Multilumen/Ferris Flush Last Admin: 01/19/19 09:53 Dose: 10 ml Documented by: Sodium Chloride (0.9% Nacl (Sterile) Posiflush) 10 - 40 ml IV UD PRN PRN Reason: Port access or dressing change Sodium Chloride () 10 - 40 ml IV UD PRN PRN Reason: SALINE FLUSH STROKE Vital Signs/Narrative: Vital Signs Temp Pulse Resp BP Pulse Ox 01/19/19 10:58 97 27 H 98 01/19/19 09:28 83 16 97 01/19/19 09:00 83 16 106/49 L 98 01/19/19 08:00 100.4 F H 76 14 131/55 H 99 Medical Necessity - Tobacco Use Smoking Status: Unknown if ever smoked Assessment/Plan All Active Problems Fall (Acute) Left hip pain (Acute) Hypokalemia (Acute) Pelvic fracture (Acute) UTI (urinary tract infection) due to Enterococcus (Resolved) HCAP (healthcare-associated pneumonia) (Acute) Dehydration (Acute) Sepsis (Acute) Hypovolemic shock (Acute) ARF (acute renal failure) (Acute) Delirium (Acute) Uremic acidosis (Acute) Hip fracture (Resolved) 1. Septic shock and acute hypoxic respiratory failure secondary to aspiration pneumonia/anion gap metabolic acidosis secondary to uremia with metabolic encephalopathy/SALLY -She was titrated off levofed at around 5 AM -Continue with meropenem, she was given aztreonam in the ER -Continue with intubation and ventilation per ICU -She has been off of propofol this morning and is able to open her eyes but does not follow commands consistently -Blood cultures are pending, Legionella and Streptococcus antigen are negative -Creatinine is improving from 4.46 on admission to 2.37, as is BUN, anion gap is also closed -We will continue with current therapy and reevaluate in the morning for extubation -Continue with IV fluids -Renal ultrasound is pending 2. HTN/HLD -Currently was on levo fed for septic shock, will hold all home blood pressure medications until stable -Can restart pravastatin when taking p.o. 3. Hypothyroidism -Stable -Continue with Synthroid 1 taking p.o. 4. Anxiety/depression -Unsure as to how she is been doing with this given that she is intubated -When she is able to take p.o. can restart her amitriptyline, Wellbutrin, Lexapro DVT: Lovenox Code Visit Inpatient E&M: 28763 Subs Hosp L2
--- NOTE | 2019-01-19 11:50 | CASEMGMT ---
Social Work Referral received as staff has been unable to contact pt next of kin. At this time pt is unable to communicate with staff. Pt son Barak Ibanez is listed as primary contact. Phone number rings then turns to busy signal. In pt medical record, a second number is listed for Barak but when called, it rings and then turns to busy signal. SW notes from 12/27/18 indicate pt told SW that her son Barak is in retirement in [place] with hope of release in Mar 2019. This SW placed call to [facility], PCP office (Dr. Edmond), [facility] (medicaid), and [facility]. Each organization has only the contact name and number of Barak or no contact information at all. Per pt medical record pt was admitted to [facility] in June-July 2016 and pt lived at home with a niece, Melissa Perez, and nephew, Christo Perez, and returned home with them at time of d/c. Phone numbers obtained from Medical Records with permission of Risk Management. Phone call placed to Melissa. Phone was answered and then SW was hung up on. Called again with no answer and SW left VM informing of looking for next of kin and requested return call. SW placed call about 20 minutes later and call answered and hung up on. Call placed to Christo Tung and stating it is the phone of Ale, no message left. SW entered pt room. RNSuhail, in room and SW explained situation to RN. At this time pt is awake. SW spoke to pt and pt shaking head but unable to speak due to vent. Pt confirms her son is in [facility]. When asked if she has a neice Melsisa she confirms and again shakes head yes that pt has a relationship with her. Pt is unable to communicate Melissa's last name or phone number. SW will continue to follow. VERONICA Prasad
[2019-01-19] MEDS: Propofol 10MG/Ml 1,000 MG/100 ML Bottle 1.6 MG CONT INF (12:01)
--- NOTE | 2019-01-19 12:21 | PCM.CONS.R ---
Consultation - Renal 01/19/19 PCP/ Referring MD: Requesting physician: Dr Harrington Primary care physician: Jaime Edmond MD Reason for Consultation:: SALLY, hyperkalemia, metabolic acidosis - History of Present Illness History of Present Illness: The patient is a 63 year old F resident of [facility] admitted for altered mental status and SALLY. She was discharged from [facility] about 2 weeks ago for debility due to mechanical fall status post pelvic fracture. She has a history of left hip fracture. Creatinine on 12/29 was 0.65 prior to discharge. Creatinine on admit 4.46 BUN 123 with hypotension SBP in the 70's. She received 3L fluids in ED, intubated for altered mental status and started on pressors. She is treated for possible aspiration pneumonia and septic shock. Blood cultures are still pending. She was profoundly acidotic with bicarbonate of 9. She was started on bicarb drip last night. Currently she remains on ventilator on fentanyl drip however is able to answer yes/no questions. She had nausea, vomiting and diarrhea with abdominal discomfort for several days at the retirement. According to her medication list she was on lisinopril and diclofenac both which have been discontinued since admission. Currently she is nonoliguric. Creatinine has improved to 2.37 with BUN of 93 with bicarbonate 13 on bicarb drip. [] - Allergies Allergies: Allergies amoxicillin Allergy (Verified 01/18/19 14:33) Hives yeast infection - Current Medications Current Medications: Current Medications Acetaminophen (Tylenol Liquid) 650 mg PO Q4H PRN PRN PRN Reason: Pain or Fever >100.5 Albuterol Sulfate (Ventolin Aerosols) 2.5 mg INHALATION Q2H PRN PRN PRN Reason: SOB &/OR WHEEZING Chlorhexidine Gluconate () 15 ml PO BID [facility] Last Admin: 01/19/19 09:56 Dose: 15 ml Documented by: Chlorhexidine Gluconate () 1 each TOPICAL DAILY [facility] Last Admin: 01/19/19 09:52 Dose: 1 each Documented by: Dextrose (D50w Syringe) 0 gm IV X1 PRN; Protocol PRN Reason: Hypoglycemia Enoxaparin Sodium (Lovenox) 30 mg SC DAILY@1000 [facility] Last Admin: 01/19/19 09:51 Dose: 30 mg Documented by: Glucagon () 1 mg IM .X1 PRN PRN Reason: Hypoglycemia Sodium Chloride () 1,000 mls @ 15 mls/hr IV .Q48H [facility] Last Infusion: 01/19/19 10:00 Dose: 0 mls/hr Documented by: Norepinephrine Bitartrate 8 mg (/ Sodium Chloride) 250 mls @ 9.375 mls/hr CONT INF .[id number] [facility]; Protocol Last Titration: 01/19/19 06:45 Dose: 0 mcg/min, 0 mls/hr Documented by: Pantoprazole Sodium 40 mg/ (Sodium Chloride) 110 mls @ 330 mls/hr IV Q24 [facility] Last Admin: 01/19/19 10:22 Dose: 330 mls/hr Documented by: Fentanyl () 100 mls @ 2.5 mls/hr IV UD [facility]; Protocol Last Titration: 01/19/19 04:00 Dose: 0 mcg/hr, 0 mls/hr Documented by: Propofol (Diprivan) 1,000 mg in 100 mls @ 3.24 mls/hr CONT INF .Q12H [facility]; Protocol Last Admin: 01/19/19 12:01 Dose: 5 mcg/kg/min, 1.6 mls/hr Documented by: Sodium Chloride () 250 mls @ 15 mls/hr IV .[id number] PRN PRN Reason: Saline Flush Sodium Bicarbonate 100 meq/ (Dextrose) 1,100 mls @ 100 mls/hr IV .Q11H [facility] Last Admin: 01/19/19 09:02 Dose: 100 mls/hr Documented by: Meropenem 1 gm/ Sodium (Chloride) 120 mls @ 33 mls/hr IV BID [facility] Ondansetron HCl (Zofran) 4 mg IV Q6H PRN PRN PRN Reason: Nausea Sodium Chloride () 10 - 40 ml IV UD PRN PRN Reason: Multilumen/Ferris Flush Last Admin: 01/19/19 09:53 Dose: 10 ml Documented by: Sodium Chloride (0.9% Nacl (Sterile) Posiflush) 10 - 40 ml IV UD PRN PRN Reason: Port access or dressing change Sodium Chloride () 10 - 40 ml IV UD PRN PRN Reason: SALINE FLUSH - Past Medical History Past Medical History (Chronic Problems): Chronic Problems Debility (Chronic) Nicotine abuse (Chronic) Anemia (Chronic) Depression (Chronic) Essential (primary) hypertension (Chronic) Hypothyroid (Chronic) Hydrocephalus (Chronic) Brain aneurysm (Chronic) Status post hip surgery (Chronic) - Past Surgical History Surgical History: total hip arthroplasty, - - vp public relations shunt, aneurysm clipped in brain. - Social History Smoking Status: Unknown if ever smoked - Family History Paternal History Items: Hypertension, - - pancreatic cancer Maternal History Items: - - TIAs Review of Systems Constitutional: Reports: Anorexia, Malaise, Weakness. Denies: Chills, Fever Eyes: Denies: Vision Change HEENT: Denies: Head Aches Cardiovascular: Denies: Chest Pain, Edema, Syncope Respiratory: Denies: Cough, Shortness of Breath Gastrointestinal: Reports: Abdominal Pain, Diarrhea, Nausea, Vomiting Genitourinary: Denies: Dysuria Skin: Denies: Rash Neurological: Reports: - - Recent hospitalization for fall status post pelvic fracture. Hematologic/ Lymphatic: Reports: Anemia Unable to obtain accurate/complete ROS d/t: limited history since pt on vent Patient Problems: Active and Suspected Problems HCAP (healthcare-associated pneumonia) (Acute) Dehydration (Acute) Sepsis (Acute) Hypovolemic shock (Acute) ARF (acute renal failure) (Acute) Delirium (Acute) Uremic acidosis (Acute) - Physical Exam Vitals/I&O's: Vital Signs Temp Pulse Resp BP Pulse Ox 100.4 F H 97 27 H 106/49 L 98 01/19/19 08:00 01/19/19 10:58 01/19/19 10:58 01/19/19 09:00 01/19/19 10:58 Oxygen Delivery Method Mechanical Ventilator Weight: 54 kg Body Mass Index (BMI) 23.3 Finger Stick Blood Glucose 119 Intake and Output for Last 24 Hours 01/17/19 01/18/19 01/19/19 23:59 23:59 23:59 Intake Total 3612.76 / 3616.16 1513.80 / 1513.80 Output Total 1425 / 1425 Balance 3612.76 / 2741.16 88.80 / 88.80 General: Alert, - - awake responsive to yes/no questions on vent HEENT: PERRLA, EOMI Oral: Moist Mucosa Neck: Supple Lungs: Rhonchi Cardiovascular: Regular rate, No rub noted Abdomen: Bowel Sounds Present, Soft, Non-Distended, Tender - mild Extremities: No clubbing, No cyanosis, No edema, Peripheral Pulses Normal Skin: No rashes Musculoskeletal: No Muscle Wasting Neurological: - - restrained, unable to obtain complete assessment. Moves all four extremities, manager safe symmetric Psych/Mental Status: Normal Affect, Appropriate, - - awake, responsive Microbiology Past 72 Hours 01/18/19 23:20 Urine Catheter - Abbott Streptococcus pneumoniae Antigen (M - Final 01/18/19 23:20 Urine Catheter - Abbott Legionella Antigen - Final 01/18/19 15:35 Stool Stool Occult Blood (SHANON) - Final Laboratory Results 01/18/19 14:00: WBC 12.4 H, RBC 3.09 L, Hgb 10.0 L, Hct 33.6 L, MCV 108.7 H, MCH 32.4 H, MCHC 29.8 L, RDW Std Deviation 61.0 H, RDW Coeff of Jesus 15.2 H, Plt Count 385, MPV 10.3, Immature Gran % (Auto) 0.300, Neut % (Auto) 84.2 H, Lymph % (Auto) 8.1 L, [place] % (Auto) 4.9, Eos % (Auto) 2.3, Baso % (Auto) 0.2, Absolute Neuts (auto) 10.4 H, Absolute Lymphs (auto) 1.00, Nucleated RBC % 0 01/18/19 14:00: PT 14.8, INR 1.2, APTT 29.1 01/18/19 14:00: Sodium 139, Potassium 5.1, Chloride 117 H, Carbon Dioxide 9.0 L*, Anion Gap 13, BUN 123 H*, Creatinine 4.46 H, Estim Creat Clear Calc 9.51, Est GFR (MDRD) Af Amer 13 L, Est GFR (MDRD) Non-Af 11 L, BUN/Creatinine Ratio 27.6 H, Glucose 120 H, Calcium 8.5, Troponin I < 0.015 01/18/19 14:45: Urine Color Yellow, Urine Clarity Sl. Cloudy, Urine pH 5.0, Ur Specific Randolph 1.025, Urine Protein 15 H, Urine Glucose (UA) Normal, Urine Ketones Negative, Urine Occult Blood Negative, Urine Nitrite Negative, Urine Bilirubin 3 H, Urine Urobilinogen Normal, Ur Leukocyte Esterase 25 H, Urine RBC 0 SEEN, Urine WBC 0-5 SEEN, Ur Squamous Epith Cells 0 SEEN, Urine Bacteria RARE, Urine Mucus 0 SEEN 01/18/19 14:50: Lactic Acid 1.7 01/18/19 16:55: Specimen Type ART, Sample Site R Brachial, pH 7.06 L*, Bicarbonate Actual 6.1 L, POC Total CO2 7, Base Excess -24 L, O2 Saturation 87 L, ABG pCO2 21.4 L, ABG pO2 73 L, Niall Test POS, O2 Delivery Device Room Air, Blood Gas Notified Whom ED , Blood Gas Notified Time 16501/18/19 19:30: Urine Creatinine 52.00 01/18/19 19:30: Ur Random Sodium 47 01/18/19 19:55: PT 15.5 H, INR 1.3, APTT 31.4 01/18/19 19:55: Sodium 142, Potassium 5.1, Chloride 122 H, Carbon Dioxide 9.0 L*, Anion Gap 11, BUN 109 H*, Creatinine 3.37 H, Estim Creat Clear Calc 12.59, Est GFR (MDRD) Af Amer 18 L, Est GFR (MDRD) Non-Af 15 L, BUN/Creatinine Ratio 32.3 H, Glucose 133 H, Calcium 7.2 L 01/18/19 19:55: Total Creatine Kinase 116, Triglycerides 213 H 01/18/19 20:15: Specimen Type SIERRA, Sample Site R Radial, pH 7.07 L*, Bicarbonate Actual 6.9 L, POC Total CO2 8, Base Excess -23 L, O2 Saturation 98, O2 % 30, ABG pCO2 24.1 L, ABG pO2 146 H, Respiration Rate 14, O2 Delivery Device Vent, Minute Volume 6.00, Vent Mode A-C, Tidal Volume 450, POC PEEP 5, Blood Gas Notified Whom [facility] , Blood Gas Notified Time 200901/18/19 22:20: Sodium 145, Potassium 4.7, Chloride 124 H, Carbon Dioxide 11.0 L, Anion Gap 10, BUN 102 H*, Creatinine 2.99 H, Estim Creat Clear Calc 16.81, Est GFR (MDRD) Af Amer 20 L, Est GFR (MDRD) Non-Af 17 L, BUN/Creatinine Ratio 34.1 H, Glucose 136 H, Calcium 7.5 L 01/19/19 04:45: WBC 10.6, RBC 2.51 L, Hgb 8.3 L, Hct 26.2 L, MCV 104.4 H, MCH 33.1 H, MCHC 31.7 L, RDW Std Deviation 59.4 H, RDW Coeff of Jesus 15.5 H, Plt Count 304, MPV 10.2, Immature Gran % (Auto) 0.400, Neut % (Auto) 75.9 H, Lymph % (Auto) 8.8 L, [place] % (Auto) 9.1, Eos % (Auto) 5.5 H, Baso % (Auto) 0.3, Absolute Neuts (auto) 8.0 H, Absolute Lymphs (auto) 0.93, Nucleated RBC % 0, Differential Comment SCANNED, Macrocytosis 2+ 01/19/19 04:45: Sodium 146 H, Potassium 4.1, Chloride 124 H, Carbon Dioxide 13.0 L, Anion Gap 9, BUN 93 H, Creatinine 2.37 H, Estim Creat Clear Calc 21.21, Est GFR (MDRD) Af Amer 27 L, Est GFR (MDRD) Non-Af 22 L, BUN/Creatinine Ratio 39.2 H, Glucose 125 H, Calcium 7.6 L, Phosphorus 4.3, Total Bilirubin 0.40, AST 11 L, ALT 18, Alkaline Phosphatase 118 H, Total Protein 6.3 L, Albumin 2.7 L, Globulin 3.6, Albumin/Globulin Ratio 0.8 L 01/19/19 05:22: Specimen Type ART, Sample Site OTHER, pH 7.29 L, Bicarbonate Actual 10.3 L, POC Total CO2 11, Base Excess -16 L, O2 Saturation TNP, O2 % 25, ABG pCO2 21.6 L, ABG pO2 TNP, Niall Test NA, Respiration Rate 14, O2 Delivery Device Vent, Minute Volume 7.00, Vent Mode A-C, Tidal Volume 450, POC PEEP 5, Blood Gas Notified Whom ICU , Blood Gas Notified Time 518 Clinical Impression(s) from Imaging Studies Brain CT 01/18/19 13:59 IMPRESSION: Since 12/26/2018, stable exam. No acute intracranial hemorrhage. N.B. : The above information has been verbally conveyed by Bryon Vazquez MD (Brooks) to Ren Cortez on 01/18/2019 14:22:37 (ET). Electronically Signed: Bryon Vazquez MD (Brooks) at 14:23 EDT , Service support , ADDENDUM: 01/18/19 1430 IMPRESSION: Since 12/26/2018, stable exam. No acute intracranial hemorrhage. N.B. : The above information has been verbally conveyed by Bryon Vazquez MD (Brooks) to Ren Cortez on 01/18/2019 14:22:37 (ET). Electronically Signed: Bryon Vazquez MD (Brooks) at 14:23 EDT , Service support , Chest X-Ray 01/18/19 13:59 IMPRESSION: Developing atelectasis or infiltrate in the left lung base. Electronically Signed: Bryon Vazquez MD (Brooks) at 15:02 EDT , Service support , Head/Neck CTA 01/18/19 13:59 IMPRESSION: 1. No intracranial/port [place] aneurysm. Prior aneurysm repair (right parasellar) noted. 2. Minimal atherosclerosis of the carotid bulbs without hemodynamically significant stenosis. Electronically Signed: Bryon Vazquez MD (Brooks) at 14:30 EDT , Service support , Chest X-Ray 01/18/19 16:16 IMPRESSION: 1. Left subclavian central venous catheter with tip terminating in the upper SVC. 2. Similar left lower lobe atelectasis or early infiltrate. Electronically Signed: Bryon Vazquez MD (Brooks) at 16:46 EDT , Service support , Chest X-Ray 01/18/19 17:07 IMPRESSION: New ET tube as above. Stable chest. Electronically Signed: Luke Houser MD at 19:05 EDT , Service support , KUB X-Ray 01/19/19 01:53 IMPRESSION: Nonspecific distention of the colon as described above. Electronically Signed: Jeri Abarca MD at 3:08 EDT , Service support , KUB X-Ray 01/19/19 02:25 IMPRESSION: Nasogastric tube is described above, recommend advancing approximately 7 cm. Nonspecific distention of the colon. Electronically Signed: Jeri Abarca MD at 3:11 EDT , Service support , KUB X-Ray 01/19/19 02:26 IMPRESSION: Nasogastric tube has described above. Nonspecific colonic distention. Electronically Signed: Jeri Abarca MD at 3:13 EDT , Service support , KUB X-Ray 01/19/19 02:27 IMPRESSION: Normal location of the nasogastric tube. Nonspecific distention of the colon and some of the small bowel loops which may indicate ileus, cannot exclude distal colonic obstruction. Electronically Signed: Jeri Abarca MD at 3:13 EDT , Service support , Renal Ultrasound 01/19/19 05:55 IMPRESSION: 1. No hydronephrosis. 2. Simple left renal cyst. 3. Abbott catheter. Electronically Signed: Bryon Vazquez MD (Brooks) at 10:02 EDT , Service support , Current Medications Acetaminophen (Tylenol Liquid) 650 mg PO Q4H PRN PRN PRN Reason: Pain or Fever >100.5 Albuterol Sulfate (Ventolin Aerosols) 2.5 mg INHALATION Q2H PRN PRN PRN Reason: SOB &/OR WHEEZING Chlorhexidine Gluconate () 15 ml PO BID [facility] Last Admin: 01/19/19 09:56 Dose: 15 ml Documented by: Chlorhexidine Gluconate () 1 each TOPICAL DAILY [facility] Last Admin: 01/19/19 09:52 Dose: 1 each Documented by: Dextrose (D50w Syringe) 0 gm IV X1 PRN; Protocol PRN Reason: Hypoglycemia Enoxaparin Sodium (Lovenox) 30 mg SC DAILY@1000 [facility] Last Admin: 01/19/19 09:51 Dose: 30 mg Documented by: Glucagon () 1 mg IM .X1 PRN PRN Reason: Hypoglycemia Sodium Chloride () 1,000 mls @ 15 mls/hr IV .Q48H [facility] Last Infusion: 01/19/19 10:00 Dose: 0 mls/hr Documented by: Norepinephrine Bitartrate 8 mg (/ Sodium Chloride) 250 mls @ 9.375 mls/hr CONT INF .[id number] [facility]; Protocol Last Titration: 01/19/19 06:45 Dose: 0 mcg/min, 0 mls/hr Documented by: Pantoprazole Sodium 40 mg/ (Sodium Chloride) 110 mls @ 330 mls/hr IV Q24 [facility] Last Admin: 01/19/19 10:22 Dose: 330 mls/hr Documented by: Fentanyl () 100 mls @ 2.5 mls/hr IV UD [facility]; Protocol Last Titration: 01/19/19 04:00 Dose: 0 mcg/hr, 0 mls/hr Documented by: Propofol (Diprivan) 1,000 mg in 100 mls @ 3.24 mls/hr CONT INF .Q12H [facility]; Protocol Last Admin: 01/19/19 12:01 Dose: 5 mcg/kg/min, 1.6 mls/hr Documented by: Sodium Chloride () 250 mls @ 15 mls/hr IV .[id number] PRN PRN Reason: Saline Flush Sodium Bicarbonate 100 meq/ (Dextrose) 1,100 mls @ 100 mls/hr IV .Q11H [facility] Last Admin: 01/19/19 09:02 Dose: 100 mls/hr Documented by: Meropenem 1 gm/ Sodium (Chloride) 120 mls @ 33 mls/hr IV BID [facility] Ondansetron HCl (Zofran) 4 mg IV Q6H PRN PRN PRN Reason: Nausea Sodium Chloride () 10 - 40 ml IV UD PRN PRN Reason: Multilumen/Ferris Flush Last Admin: 01/19/19 09:53 Dose: 10 ml Documented by: Sodium Chloride (0.9% Nacl (Sterile) Posiflush) 10 - 40 ml IV UD PRN PRN Reason: Port access or dressing change Sodium Chloride () 10 - 40 ml IV UD PRN PRN Reason: SALINE FLUSH Assessment/Plan All Active Problems Fall (Acute) Left hip pain (Acute) Hypokalemia (Acute) Pelvic fracture (Acute) UTI (urinary tract infection) due to Enterococcus (Resolved) HCAP (healthcare-associated pneumonia) (Acute) Dehydration (Acute) Sepsis (Acute) Hypovolemic shock (Acute) ARF (acute renal failure) (Acute) Delirium (Acute) Uremic acidosis (Acute) Hip fracture (Resolved) 1. Nonoliguric acute renal failure with FENA >1% likely due to ATN from hypotension, sepsis syndrome. Blood cultures pending. Creatinine 4.46 on admission improved to 2.37 today with aggressive IV hydration and pressors. Baseline creatinine 0.65 on 12/29. Patient was on lisinopril and diclofenac at [facility]. Agree with discontinuation. Renal ultrasound without hydronephrosis. Continue with IV hydration. No immediate need for hemodialysis. Continue to monitor renal function. Avoid nephrotoxins such as IV contrast. Avoid NSAID use. Recent iv contrast exposure on 01/18. 2. Acute metabolic acidosis with hyperkalemia likely due to renal failure. Continue with bicarbonate replacement. Bicarb improved from 9 to 13 today 3. Acute altered mental status likely due to metabolic encephalopathy. 4. Acute respiratory distress s/p intubation. Treated for possible aspiration pneumonia/HCAP 5. Septic shock with hypotension, metabolic acidosis requiring pressor support. Blood pressure stable today.
--- NOTE | 2019-01-19 12:38 | CASEMGMT ---
Social Work Phone call to [facility]. Correctional worker confirmed Pt son is currently incarcerated there. If physician needs to talk to pt son, staff is to call the health unit clerk at the correctional facility: Mr. Osorio [phone] extension [phone] RN and physician MARCIAL RabagoW
--- NOTE | 2019-01-19 13:29 | CASEMGMT ---
Social Work Clinical update faxed to Angie at [facility]. VERONICA Prasad
[2019-01-19] MEDS: Vital AF 1.2 Cal Liquid 1,000 ML 60 ML GT (19:07)
[2019-01-19] MEDS: fentaNYL drip 100 ML 5 MCG IV (21:49)
[2019-01-20] VITALS (35 sets, daily range): BP systolic 111–166; BP diastolic 45–85; PULSE 74–96; RESP 12–23; TEMP 36.9–37.9; O2SAT 94–997
[2019-01-20] MEDS: Propofol 10MG/Ml 1,000 MG/100 ML Bottle 1.6 MG CONT INF (00:49)
[2019-01-20 04:57] LABS: Hematocrit 23.4 % (37-47); Hemoglobin 7.5 g/dL (12.0-15.0); Mean Corp Hgb Conc 32.1 g/dL (32-36); Mean Corpuscular Hgb 32.8 pg (27.0-32.0); Mean Corpuscular Volume 102.2 fL (81-99); Mean Platelet Vol. 9.9 fl (6.2-12.0); Platelet Count 271 K/mm3 (150-450); RBC Distribution Width CV 15.3 % (11.6-14.6); RBC Distribution Width SD 57.1 fl (35.1-43.9); Red Blood Count 2.29 M/mm3 (4.2-5.4); White Blood Count 13.6 K/mm3 (4.4-11.0)
[2019-01-20 05:10] LABS: Anion Gap 7 (5-15); BUN 49 mg/dL (7-18); BUN/Creat Ratio 46.2 RATIO (10-20); Chloride 118 mmol/L (98-107); Creatinine, Serum 1.06 mg/dL (0.55-1.02); EST Glomerular Filtration Rate 56 mL/min (>60); Est Glom Filt Rate - Afr Amer 68 mL/min (>60); Estimated Creatinine Clearance 48.92 ml/min; Glucose 111 mg/dL (74-106); Potassium 3.5 mmol/L (3.5-5.1); Sodium Level 148 mmol/L (136-145)
[2019-01-20 06:16] LABS: Allen Test POS; Base Excess -4 mmol/L (-2 to +2); Bicarbonate 20.5 mmol/L (22-26); Blood Gas Specimen Type ART; FI02 21; Mode CPAP PS; O2 Delivery Device Vent; PEEP 5; PO2 81 mmHG (75-100); PS 5; SITE L Radial; SO2 96 % (95-99); Time Given 600; Total Carbon Dioxide 21 mmol/L; pCO2 30.7 mmHg (35-45); pH 7.43 (7.35-7.45)
--- NOTE | 2019-01-20 08:01 | PCM.PN.INT ---
Subjective: Patient did okay overnight. No acute issues were reported. Patient was able to have a spontaneous breathing trial this morning and was successfully liberated under my direct supervision. No nausea, vomiting or diarrhea has been reported. Patient is confused, but no conversational dyspnea is noted. General: Alert, No apparent distress, Confused, Disoriented, - - No conversational dyspnea. Appears older than stated age. HEENT: Atraumatic, PERRLA, EOMI, Normocephalic, - - No scleral icterus or injection noted Oral: Moist Mucosa, No Gingival or Mucosal Lesions/ Ulcerations Neck: Supple, No JVD, No Nodes, Trachea Midline Lungs: No rhonchi, No wheeze, No rales, Diminished, - - Fair effort. Cardiovascular: Regular rate, Regular Rhythm, Normal S1, Normal S2, No murmurs, No rub noted, No Gallop Abdomen: Bowel Sounds Present, Soft, Non Tender, Non-Distended Extremities: No clubbing, No cyanosis, No edema, Capillary Refill Less than 3 Seconds Skin: No rashes, No breakdown Musculoskeletal: No Tenderness to Palpation of Joints or Extremities Lymphatic: No Cervical, Supraclavicular, or Inguinal Adenopathy Neurological: Cranial nerves II-XII grossly intact, Neuro grossly intact, Motor Exam 5/5 strength throughout Psych/Mental Status: Flat Affect, Restless Vital Signs Temp Pulse Resp BP Pulse Ox 37.9 C H 85 12 147/59 H 99 01/20/19 00:00 01/20/19 07:00 01/20/19 07:00 01/20/19 07:00 01/20/19 07:00 Oxygen Flow Rate (L/min) 2 Oxygen Delivery Method Nasal Cannula Weight: 55.6 kg Body Mass Index (BMI) 23.3 Finger Stick Blood Glucose 119 Intake and Output for Last 24 Hours 01/18/19 01/19/19 01/20/19 23:59 23:59 23:59 Intake Total 3612.76 / 3616.16 3215.52 / 3842.59 1593.20 / 1593.20 Output Total 2625 / 3125 800 / 800 Balance 3612.76 / 2741.16 590.52 / 717.59 793.20 / 793.20 Labs (Last 48 Hours) 01/18/19 01/18/19 01/18/19 14:00 14:00 14:00 WBC 12.4 H RBC 3.09 L Hgb 10.0 L Hct 33.6 L MCV 108.7 H MCH 32.4 H MCHC 29.8 L RDW Std Deviation 61.0 H RDW Coeff of Jesus 15.2 H Plt Count 385 MPV 10.3 Immature Gran % (Auto) 0.300 Neut % (Auto) 84.2 H Lymph % (Auto) 8.1 L [place] % (Auto) 4.9 Eos % (Auto) 2.3 Baso % (Auto) 0.2 Absolute Neuts (auto) 10.4 H Absolute Lymphs (auto) 1.00 Nucleated RBC % 0 Differential Comment Macrocytosis PT 14.8 INR 1.2 APTT 29.1 Specimen Type Sample Site pH Bicarbonate Actual POC Total CO2 Base Excess O2 Saturation O2 % ABG pCO2 ABG pO2 Niall Test Respiration Rate O2 Delivery Device Minute Volume Vent Mode Tidal Volume POC PEEP POC Pressure Suppt Blood Gas Notified Whom Blood Gas Notified Time Sodium 139 Potassium 5.1 Chloride 117 H Carbon Dioxide 9.0 L* Anion Gap 13 BUN 123 H* Creatinine 4.46 H Estim Creat Clear Calc 9.51 Est GFR (MDRD) Af Amer 13 L Est GFR (MDRD) Non-Af 11 L BUN/Creatinine Ratio 27.6 H Glucose 120 H Lactic Acid Calcium 8.5 Phosphorus Total Bilirubin AST ALT Alkaline Phosphatase Total Creatine Kinase Troponin I < 0.015 Total Protein Albumin Globulin Albumin/Globulin Ratio Triglycerides Urine Color Urine Clarity Urine pH Ur Specific [place] Urine Protein Urine Glucose (UA) Urine Ketones Urine Occult Blood Urine Nitrite Urine Bilirubin Urine Urobilinogen Ur Leukocyte Esterase Urine RBC Urine WBC Ur Squamous Epith Cells Urine Bacteria Urine Mucus Ur Random Sodium Urine Creatinine 01/18/19 01/18/19 01/18/19 14:45 14:50 16:55 WBC RBC Hgb Hct MCV MCH MCHC RDW Std Deviation RDW Coeff of Jesus Plt Count MPV Immature Gran % (Auto) Neut % (Auto) Lymph % (Auto) [place]oula % (Auto) Eos % (Auto) Baso % (Auto) Absolute Neuts (auto) Absolute Lymphs (auto) Nucleated RBC % Differential Comment Macrocytosis PT INR APTT Specimen Type ART Sample Site R Brachial pH 7.06 L* Bicarbonate Actual 6.1 L POC Total CO2 7 Base Excess -24 L O2 Saturation 87 L O2 % ABG pCO2 21.4 L ABG pO2 73 L Niall Test POS Respiration Rate O2 Delivery Device Room Air Minute Volume Vent Mode Tidal Volume POC PEEP POC Pressure Suppt Blood Gas Notified Whom ED MD Blood Gas Notified Time 1655 Sodium Potassium Chloride Carbon Dioxide Anion Gap BUN Creatinine Estim Creat Clear Calc Est GFR (MDRD) Af Amer Est GFR (MDRD) Non-Af BUN/Creatinine Ratio Glucose Lactic Acid 1.7 Calcium Phosphorus Total Bilirubin AST ALT Alkaline Phosphatase Total Creatine Kinase Troponin I Total Protein Albumin Globulin Albumin/Globulin Ratio Triglycerides Urine Color Yellow Urine Clarity Sl. Cloudy Urine pH 5.0 Ur Specific [place] 1.025 Urine Protein 15 H Urine Glucose (UA) Normal Urine Ketones Negative Urine Occult Blood Negative Urine Nitrite Negative Urine Bilirubin 3 H Urine Urobilinogen Normal Ur Leukocyte Esterase 25 H Urine RBC 0 SEEN Urine WBC 0-5 SEEN Ur Squamous Epith Cells 0 SEEN Urine Bacteria RARE Urine Mucus 0 SEEN Ur Random Sodium Urine Creatinine 01/18/19 01/18/19 01/18/19 19:30 19:30 19:55 WBC RBC Hgb Hct MCV MCH MCHC RDW Std Deviation RDW Coeff of Jesus Plt Count MPV Immature Gran % (Auto) Neut % (Auto) Lymph % (Auto) [place]oula % (Auto) Eos % (Auto) Baso % (Auto) Absolute Neuts (auto) Absolute Lymphs (auto) Nucleated RBC % Differential Comment Macrocytosis PT 15.5 H INR 1.3 APTT 31.4 Specimen Type Sample Site pH Bicarbonate Actual POC Total CO2 Base Excess O2 Saturation O2 % ABG pCO2 ABG pO2 Niall Test Respiration Rate O2 Delivery Device Minute Volume Vent Mode Tidal Volume POC PEEP POC Pressure Suppt Blood Gas Notified Whom Blood Gas Notified Time Sodium Potassium Chloride Carbon Dioxide Anion Gap BUN Creatinine Estim Creat Clear Calc Est GFR (MDRD) Af Amer Est GFR (MDRD) Non-Af BUN/Creatinine Ratio Glucose Lactic Acid Calcium Phosphorus Total Bilirubin AST ALT Alkaline Phosphatase Total Creatine Kinase Troponin I Total Protein Albumin Globulin Albumin/Globulin Ratio Triglycerides Urine Color Urine Clarity Urine pH Ur Specific [place] Urine Protein Urine Glucose (UA) Urine Ketones Urine Occult Blood Urine Nitrite Urine Bilirubin Urine Urobilinogen Ur Leukocyte Esterase Urine RBC Urine WBC Ur Squamous Epith Cells Urine Bacteria Urine Mucus Ur Random Sodium 47 Urine Creatinine 52.00 01/18/19 01/18/19 01/18/19 19:55 19:55 20:15 WBC RBC Hgb Hct MCV MCH MCHC RDW Std Deviation RDW Coeff of Jesus Plt Count MPV Immature Gran % (Auto) Neut % (Auto) Lymph % (Auto) [place]oula % (Auto) Eos % (Auto) Baso % (Auto) Absolute Neuts (auto) Absolute Lymphs (auto) Nucleated RBC % Differential Comment Macrocytosis PT INR APTT Specimen Type CANOVANAS Sample Site R Radial pH 7.07 L* Bicarbonate Actual 6.9 L POC Total CO2 8 Base Excess -23 L O2 Saturation 98 O2 % 30 ABG pCO2 24.1 L ABG pO2 146 H Niall Test Respiration Rate 14 O2 Delivery Device Vent Minute Volume 6.00 Vent Mode A-C Tidal Volume 450 POC PEEP 5 POC Pressure Suppt Blood Gas Notified Whom HOSP Blood Gas Notified Time 2009 Sodium 142 Potassium 5.1 Chloride 122 H Carbon Dioxide 9.0 L* Anion Gap 11 BUN 109 H* Creatinine 3.37 H Estim Creat Clear Calc 12.59 Est GFR (MDRD) Af Amer 18 L Est GFR (MDRD) Non-Af 15 L BUN/Creatinine Ratio 32.3 H Glucose 133 H Lactic Acid Calcium 7.2 L Phosphorus Total Bilirubin AST ALT Alkaline Phosphatase Total Creatine Kinase 116 Troponin I Total Protein Albumin Globulin Albumin/Globulin Ratio Triglycerides 213 H Urine Color Urine Clarity Urine pH Ur Specific [place] Urine Protein Urine Glucose (UA) Urine Ketones Urine Occult Blood Urine Nitrite Urine Bilirubin Urine Urobilinogen Ur Leukocyte Esterase Urine RBC Urine WBC Ur Squamous Epith Cells Urine Bacteria Urine Mucus Ur Random Sodium Urine Creatinine 01/18/19 01/19/19 01/19/19 22:20 04:45 04:45 WBC 10.6 RBC 2.51 L Hgb 8.3 L Hct 26.2 L MCV 104.4 H MCH 33.1 H MCHC 31.7 L RDW Std Deviation 59.4 H RDW Coeff of Jesus 15.5 H Plt Count 304 MPV 10.2 Immature Gran % (Auto) 0.400 Neut % (Auto) 75.9 H Lymph % (Auto) 8.8 L [place] % (Auto) 9.1 Eos % (Auto) 5.5 H Baso % (Auto) 0.3 Absolute Neuts (auto) 8.0 H Absolute Lymphs (auto) 0.93 Nucleated RBC % 0 Differential Comment SCANNED Macrocytosis 2+ PT INR APTT Specimen Type Sample Site pH Bicarbonate Actual POC Total CO2 Base Excess O2 Saturation O2 % ABG pCO2 ABG pO2 Niall Test Respiration Rate O2 Delivery Device Minute Volume Vent Mode Tidal Volume POC PEEP POC Pressure Suppt Blood Gas Notified Whom Blood Gas Notified Time Sodium 145 146 H Potassium 4.7 4.1 Chloride 124 H 124 H Carbon Dioxide 11.0 L 13.0 L Anion Gap 10 9 BUN 102 H* 93 H Creatinine 2.99 H 2.37 H Estim Creat Clear Calc 16.81 21.21 Est GFR (MDRD) Af Amer 20 L 27 L Est GFR (MDRD) Non-Af 17 L 22 L BUN/Creatinine Ratio 34.1 H 39.2 H Glucose 136 H 125 H Lactic Acid Calcium 7.5 L 7.6 L Phosphorus 4.3 Total Bilirubin 0.40 AST 11 L ALT 18 Alkaline Phosphatase 118 H Total Creatine Kinase Troponin I Total Protein 6.3 L Albumin 2.7 L Globulin 3.6 Albumin/Globulin Ratio 0.8 L Triglycerides Urine Color Urine Clarity Urine pH Ur Specific [place] Urine Protein Urine Glucose (UA) Urine Ketones Urine Occult Blood Urine Nitrite Urine Bilirubin Urine Urobilinogen Ur Leukocyte Esterase Urine RBC Urine WBC Ur Squamous Epith Cells Urine Bacteria Urine Mucus Ur Random Sodium Urine Creatinine 01/19/19 01/20/19 01/20/19 05:22 04:50 04:50 WBC 13.6 H RBC 2.29 L Hgb 7.5 L Hct 23.4 L MCV 102.2 H MCH 32.8 H MCHC 32.1 RDW Std Deviation 57.1 H RDW Coeff of Jesus 15.3 H Plt Count 271 MPV 9.9 Immature Gran % (Auto) Neut % (Auto) Lymph % (Auto) [place]oul[place] % (Auto) Eos % (Auto) Baso % (Auto) Absolute Neuts (auto) Absolute Lymphs (auto) Nucleated RBC % Differential Comment Macrocytosis PT INR APTT Specimen Type ART Sample Site OTHER pH 7.29 L Bicarbonate Actual 10.3 L POC Total CO2 11 Base Excess -16 L O2 Saturation TNP O2 % 25 ABG pCO2 21.6 L ABG pO2 TNP Niall Test NA Respiration Rate 14 O2 Delivery Device Vent Minute Volume 7.00 Vent Mode A-C Tidal Volume 450 POC PEEP 5 POC Pressure Suppt Blood Gas Notified Whom ICU Blood Gas Notified Time 518 Sodium 148 H Potassium 3.5 Chloride 118 H Carbon Dioxide 23.0 Anion Gap 7 BUN 49 H Creatinine 1.06 H Estim Creat Clear Calc 48.92 Est GFR (MDRD) Af Amer 68 Est GFR (MDRD) Non-Af 56 L BUN/Creatinine Ratio 46.2 H Glucose 111 H Lactic Acid Calcium 8.0 L Phosphorus Total Bilirubin AST ALT Alkaline Phosphatase Total Creatine Kinase Troponin I Total Protein Albumin Globulin Albumin/Globulin Ratio Triglycerides Urine Color Urine Clarity Urine pH Ur Specific [place] Urine Protein Urine Glucose (UA) Urine Ketones Urine Occult Blood Urine Nitrite Urine Bilirubin Urine Urobilinogen Ur Leukocyte Esterase Urine RBC Urine WBC Ur Squamous Epith Cells Urine Bacteria Urine Mucus Ur Random Sodium Urine Creatinine 01/20/19 06:11 WBC RBC Hgb Hct MCV MCH MCHC RDW Std Deviation RDW Coeff of Jesus Plt Count MPV Immature Gran % (Auto) Neut % (Auto) Lymph % (Auto) [place]oul[place] % (Auto) Eos % (Auto) Baso % (Auto) Absolute Neuts (auto) Absolute Lymphs (auto) Nucleated RBC % Differential Comment Macrocytosis PT INR APTT Specimen Type ART Sample Site L Radial pH 7.43 Bicarbonate Actual 20.5 L POC Total CO2 21 Base Excess -4 L O2 Saturation 96 O2 % 21 ABG pCO2 30.7 L ABG pO2 81 Niall Test POS Respiration Rate O2 Delivery Device Vent Minute Volume Vent Mode CPAP PS Tidal Volume POC PEEP 5 POC Pressure Suppt 5 Blood Gas Notified Whom ICU MD Blood Gas Notified Time 600 Sodium Potassium Chloride Carbon Dioxide Anion Gap BUN Creatinine Estim Creat Clear Calc Est GFR (MDRD) Af Amer Est GFR (MDRD) Non-Af BUN/Creatinine Ratio Glucose Lactic Acid Calcium Phosphorus Total Bilirubin AST ALT Alkaline Phosphatase Total Creatine Kinase Troponin I Total Protein Albumin Globulin Albumin/Globulin Ratio Triglycerides Urine Color Urine Clarity Urine pH Ur Specific [place] Urine Protein Urine Glucose (UA) Urine Ketones Urine Occult Blood Urine Nitrite Urine Bilirubin Urine Urobilinogen Ur Leukocyte Esterase Urine RBC Urine WBC Ur Squamous Epith Cells Urine Bacteria Urine Mucus Ur Random Sodium Urine Creatinine Microbiology 01/18/19 23:20 Urine Catheter - Abbott Streptococcus pneumoniae Antigen (M - Final 01/18/19 23:20 Urine Catheter - Abbott Legionella Antigen - Final 01/18/19 15:35 Stool Stool Occult Blood (SHANON) - Final Clinical Impression(s) from Imaging Studies Renal Ultrasound 01/19/19 05:55 IMPRESSION: 1. No hydronephrosis. 2. Simple left renal cyst. 3. Abbott catheter. Electronically Signed: Bryon Vazquez MD ([place]) at 10:02 EDT , Service support , Medical Necessity - Tobacco Use Smoking Status: Unknown if ever smoked Assessment/Plan All Active Problems Metabolic acidosis (Acute) Fall (Acute) Left hip pain (Acute) Hypokalemia (Acute) Pelvic fracture (Acute) UTI (urinary tract infection) due to Enterococcus (Resolved) HCAP (healthcare-associated pneumonia) (Acute) Dehydration (Acute) Sepsis (Acute) Hypovolemic shock (Acute) ARF (acute renal failure) (Acute) Delirium (Acute) Uremic acidosis (Acute) Hip fracture (Resolved) RECOMMENDATIONS: 1. Continue meropenem for now 2. Wean oxygen as tolerated, encourage incentive spirometer 3. Discontinue bicarbonate drip when current bag is done 4. Bedside swallow evaluation 5. Await nephrology recommendations 6. Possible transfer out of the intensive care unit later today IMPRESSIONS: 1. Acute respiratory failure secondary to encephalopathy Clinical suspicion for metabolic encephalopathy secondary to uremia. Vision successfully liberated from the ventilator today. Still on minimal nasal cannula oxygen. Patient has had a fever, so there is some concern for an aspiration. Patient is confused at this time, but appears to be much improved compared to presenting symptomatology. We will continue to monitor. 2. Metabolic encephalopathy secondary to acute kidney injury with uremia Patient appears to be responding to conservative therapy. Continue with delirium protocol. Patient does have a slightly elevated sodium and chloride level, so free water should be encouraged if patient passes bedside swallow. Unclear baseline mentation. Continue with delirium protocol. 3. Septic shock with unclear source Patient does have a history of a [employer] shunt in the past. [place] cultures are currently pending. Continue meropenem for now. Patient is not having any nuchal rigidity to suggest meningismus. 4. Acute kidney injury Unclear if this is secondary to septic shock versus volume depletion associated with reported nausea, vomiting and diarrhea. Nausea vomiting and diarrhea may be secondary to uremia. Patient appears to be responding to conservative therapy at this time. Continue to monitor urine output. 5. Hypertension/hyperthyroidism/hyperlipidemia/poor history/unable to contact next of kin Complicates care, management, recovery and prognosis. Antihypertensives have been held secondary to hypotension. Okay to continue with statin and Synthroid. Social work has found that the son is currently incarcerated. Patient will be a full code until further information is available. Patient is not able to make medical decisions at this time in my opinion. However, mentation continues to improve. TIME: 33 minutes critical care time spent addressing patient's acute respiratory failure, metabolic encephalopathy, septic shock, acute kidney injury, review of all data and collaboration with care team. (5:15 AM to 6:15 AM) Code Visit [id number]: [id number] Critical care first hour
[2019-01-20] MEDS: CHLORHEXIDINE GLUC 2% CLOTH 1 EACH TOWELETTE TOPICAL (08:02)
--- NOTE | 2019-01-20 08:48 | PN.RENAL_ITS ---
Patient Problems: Active and Suspected Problems Metabolic acidosis (Acute) HCAP (healthcare-associated pneumonia) (Acute) Dehydration (Acute) Sepsis (Acute) Hypovolemic shock (Acute) ARF (acute renal failure) (Acute) Delirium (Acute) Uremic acidosis (Acute) Subjective: extubated, BP stable off pressors. Bld cx pending. Still with mild abdominal tenderness - Physical Exam Vitals/I&O's: Vital Signs Temp Pulse Resp BP Pulse Ox 100.3 F H 89 12 147/59 H 99 01/20/19 00:00 01/20/19 07:42 01/20/19 07:00 01/20/19 07:00 01/20/19 07:00 Oxygen Flow Rate (L/min) 2 Oxygen Delivery Method Nasal Cannula Weight: 55.6 kg Body Mass Index (BMI) 23.3 Finger Stick Blood Glucose 119 Intake and Output for Last 24 Hours 01/18/19 01/19/19 01/20/19 23:59 23:59 23:59 Intake Total 3612.76 / 3616.16 3215.52 / 3842.59 1593.20 / 1593.20 Output Total 2625 / 3125 800 / 800 Balance 3612.76 / 2741.16 590.52 / 717.59 793.20 / 793.20 General: Alert, Oriented x3, Cooperative, - - debilitated Lungs: Rhonchi Cardiovascular: Regular rate Abdomen: Bowel Sounds Present, Soft, Non Tender, Non-Distended Extremities: No edema Microbiology Past 72 Hours 01/18/19 23:20 Urine Catheter - Abbott Streptococcus pneumoniae Antigen (M - Final 01/18/19 23:20 Urine Catheter - Abbott Legionella Antigen - Final 01/18/19 15:35 Stool Stool Occult Blood (SHANON) - Final Laboratory Results 01/20/19 04:50: WBC 13.6 H, RBC 2.29 L, Hgb 7.5 L, Hct 23.4 L, MCV 102.2 H, MCH 32.8 H, MCHC 32.1, RDW Std Deviation 57.1 H, RDW Coeff of Jesus 15.3 H, Plt Count 271, MPV 9.9 01/20/19 04:50: Sodium 148 H, Potassium 3.5, Chloride 118 H, Carbon Dioxide 23.0, Anion Gap 7, BUN 49 H, Creatinine 1.06 H, Estim Creat Clear Calc 48.92, Est GFR (MDRD) Af Amer 68, Est GFR (MDRD) Non-Af 56 L, BUN/Creatinine Ratio 46.2 H, Glucose 111 H, Calcium 8.0 L 01/20/19 06:11: Specimen Type ART, Sample Site L Radial, pH 7.43, Bicarbonate Actual 20.5 L, POC Total CO2 21, Base Excess -4 L, O2 Saturation 96, O2 % 21, ABG pCO2 30.7 L, ABG pO2 81, Niall Test POS, O2 Delivery Device Vent, Vent Mode CPAP PS, POC PEEP 5, POC Pressure Suppt 5, Blood Gas Notified Whom ICU MD, Blood Gas Notified Time 600 Current Medications Acetaminophen (Tylenol Liquid) 650 mg PO Q4H PRN PRN PRN Reason: Pain or Fever >100.5 Albuterol Sulfate (Ventolin Aerosols) 2.5 mg INHALATION Q2H PRN PRN PRN Reason: SOB &/OR WHEEZING Chlorhexidine Gluconate () 1 each TOPICAL DAILY [facility] Last Admin: 01/20/19 08:02 Dose: 1 each Documented by: Dextrose ([id number] Syringe) 0 gm IV X1 PRN; Protocol PRN Reason: Hypoglycemia Enoxaparin Sodium (Lovenox) 30 mg SC DAILY@1000 AYO Last Admin: 01/19/19 09:51 Dose: 30 mg Documented by: Glucagon () 1 mg IM .X1 PRN PRN Reason: Hypoglycemia Pantoprazole Sodium 40 mg/ (Sodium Chloride) 110 mls @ 330 mls/hr IV Q24 [facility] Last Infusion: 01/19/19 10:42 Dose: Infused Documented by: Sodium Chloride () 250 mls @ 15 mls/hr IV .[id number] PRN PRN Reason: Saline Flush Meropenem 1 gm/ Sodium (Chloride) 120 mls @ 33 mls/hr IV BID [facility] Last Infusion: 01/20/19 03:03 Dose: Infused Documented by: Ondansetron HCl (Zofran) 4 mg IV Q6H PRN PRN PRN Reason: Nausea Sodium Chloride (0.9% Nacl (Sterile) Posiflush) 10 - 40 ml IV UD PRN PRN Reason: Port access or dressing change Medical Necessity - Tobacco Use Smoking Status: Unknown if ever smoked Assessment/Plan All Active Problems Metabolic acidosis (Acute) Fall (Acute) Left hip pain (Acute) Hypokalemia (Acute) Pelvic fracture (Acute) UTI (urinary tract infection) due to Enterococcus (Resolved) HCAP (healthcare-associated pneumonia) (Acute) Dehydration (Acute) Sepsis (Acute) Hypovolemic shock (Acute) ARF (acute renal failure) (Acute) Delirium (Acute) Uremic acidosis (Acute) Hip fracture (Resolved) 1. Nonoliguric acute renal failure due to shock, hypotension, dehydration on ACEI/NSAIDs. Creatinine improving. UOP good. 2. Acute metabolic acidosis resolved. DC bicarb drip. 3. Hypernatremia continue with hypotonic saline.
[2019-01-20] MEDS: Dext 5%-0.45% NS 1,000 ML 75 ML IV ×2 (08:54→21:29)
--- NOTE | 2019-01-20 10:00 | PN_ITS ---
Patient Problems: Active and Suspected Problems Metabolic acidosis (Acute) HCAP (healthcare-associated pneumonia) (Acute) Dehydration (Acute) Sepsis (Acute) Hypovolemic shock (Acute) ARF (acute renal failure) (Acute) Delirium (Acute) Uremic acidosis (Acute) Subjective: Extubated and alert. She was tearful this morning because she says that her son is in skilled nursing in [place]. Vitals/I&O's: Vital Signs Temp Pulse Resp BP Pulse Ox 98.5 F 84 15 162/67 H 100 01/20/19 09:00 01/20/19 09:00 01/20/19 09:00 01/20/19 09:00 01/20/19 09:00 Oxygen Flow Rate (L/min) 2 Oxygen Delivery Method Nasal Cannula Weight: 122 lb 9.232 oz Body Mass Index (BMI) 23.3 Finger Stick Blood Glucose 119 Intake and Output for Last 24 Hours 01/18/19 01/19/19 01/20/19 23:59 23:59 23:59 Intake Total 3612.76 / 3616.16 3215.52 / 3842.59 / Output Total 2625 / 3125 800 / 800 Balance 3612.76 / 2741.16 590.52 / 717.59 1189.87 / 1189.87 General: Alert, Cooperative, No apparent distress, Disoriented HEENT: Atraumatic, PERRLA, EOMI, Normocephalic Oral: Moist Mucosa Neck: Supple, No JVD Lungs: Clear to auscultation, Normal air movement, No rhonchi, No wheeze, No rales, Diminished Cardiovascular: Regular rate, Regular Rhythm, Normal S1, Normal S2, No murmurs Abdomen: Soft, Non Tender, Non-Distended, No Hepato-splenomegaly Extremities: No edema, Capillary Refill Less than 3 Seconds Skin: No rashes, No breakdown Neurological: Neuro grossly intact, Sensory exam intact to light touch and pain Psych/Mental Status: Flat Affect Microbiology Past 72 Hours 01/18/19 23:20 Urine Catheter - Abbott Streptococcus pneumoniae Antigen (M - Final 01/18/19 23:20 Urine Catheter - Abbott Legionella Antigen - Final 01/18/19 15:35 Stool Stool Occult Blood (SHANON) - Final Laboratory Results 01/20/19 04:50: WBC 13.6 H, RBC 2.29 L, Hgb 7.5 L, Hct 23.4 L, MCV 102.2 H, MCH 32.8 H, MCHC 32.1, RDW Std Deviation 57.1 H, RDW Coeff of Jesus 15.3 H, Plt Count 271, MPV 9.9 01/20/19 04:50: Sodium 148 H, Potassium 3.5, Chloride 118 H, Carbon Dioxide 23.0, Anion Gap 7, BUN 49 H, Creatinine 1.06 H, Estim Creat Clear Calc 48.92, Est GFR (MDRD) Af Amer 68, Est GFR (MDRD) Non-Af 56 L, BUN/Creatinine Ratio 46.2 H, Glucose 111 H, Calcium 8.0 L 01/20/19 06:11: Specimen Type ART, Sample Site L Radial, pH 7.43, Bicarbonate Ac tual 20.5 L, POC Total CO2 21, Base Excess -4 L, O2 Saturation 96, O2 % 21, ABG pCO2 30.7 L, ABG pO2 81, Niall Test POS, O2 Delivery Device Vent, Vent Mode CPAP PS, POC PEEP 5, POC Pressure Suppt 5, Blood Gas Notified Whom ICU MD, Blood Gas Notified Time 600 Current Medications Acetaminophen (Tylenol Liquid) 650 mg PO Q4H PRN PRN PRN Reason: Pain or Fever >100.5 Albuterol Sulfate (Ventolin Aerosols) 2.5 mg INHALATION Q2H PRN PRN PRN Reason: SOB &/OR WHEEZING Chlorhexidine Gluconate () 1 each TOPICAL DAILY [facility] Last Admin: 01/20/19 08:02 Dose: 1 each Documented by: Dextrose (D50w Syringe) 0 gm IV X1 PRN; Protocol PRN Reason: Hypoglycemia Enoxaparin Sodium (Lovenox) 30 mg SC DAILY@1000 [facility] Last Admin: 01/19/19 09:51 Dose: 30 mg Documented by: Glucagon () 1 mg IM .X1 PRN PRN Reason: Hypoglycemia Pantoprazole Sodium 40 mg/ (Sodium Chloride) 110 mls @ 330 mls/hr IV Q24 [facility] Last Infusion: 01/19/19 10:42 Dose: Infused Documented by: Sodium Chloride () 250 mls @ 15 mls/hr IV .[id number] PRN PRN Reason: Saline Flush Meropenem 1 gm/ Sodium (Chloride) 120 mls @ 33 mls/hr IV BID AYO Last Infusion: 01/20/19 03:03 Dose: Infused Documented by: Dextrose/Sodium Chloride () 1,000 mls @ 75 mls/hr IV .[id number] AYO Last Admin: 01/20/19 08:54 Dose: 75 mls/hr Documented by: Ondansetron HCl (Zofran) 4 mg IV Q6H PRN PRN PRN Reason: Nausea Sodium Chloride (0.9% Nacl (Sterile) Posiflush) 10 - 40 ml IV UD PRN PRN Reason: Port access or dressing change STROKE Vital Signs/Narrative: Vital Signs Temp Pulse Resp BP BP Pulse Ox 01/20/19 09:00 98.5 F 84 15 162/67 H 100 01/20/19 08:00 89 16 160/67 H 997 01/20/19 07:42 89 01/20/19 07:00 85 12 147/59 H 147/59 H 99 01/20/19 06:30 97 Medical Necessity - Tobacco Use Smoking Status: Unknown if ever smoked Assessment/Plan All Active Problems Metabolic acidosis (Acute) Fall (Acute) Left hip pain (Acute) Hypokalemia (Acute) Pelvic fracture (Acute) UTI (urinary tract infection) due to Enterococcus (Resolved) HCAP (healthcare-associated pneumonia) (Acute) Dehydration (Acute) Sepsis (Acute) Hypovolemic shock (Acute) ARF (acute renal failure) (Acute) Delirium (Acute) Uremic acidosis (Acute) Hip fracture (Resolved) 1. Septic shock and acute hypoxic respiratory failure secondary to aspiration pneumonia/anion gap metabolic acidosis secondary to uremia with metabolic encephalopathy/SALLY/hypernatremia -Continue with meropenem, she was given aztreonam in the ER -Extubated this morning we will continue with nasal cannula and monitor -Blood cultures are pending, Legionella and Streptococcus antigen are negative -Creatinine is improving from 4.46 on admission to 1.06, as is BUN -Continue with IV fluids continue with hypertonic saline given the elevated sodium -Renal ultrasound was unremarkable 2. HTN/HLD -Blood pressure is climbing now into the 160s, she is on lisinopril at home can likely transition to Norvasc given her acute renal failure -Can restart pravastatin 3. Hypothyroidism -Stable -Continue with Synthroid 4. Anxiety/depression -Unsure as to how she is been doing with this given that she is intubated -When she is able to take p.o. can restart her amitriptyline, Wellbutrin, Lexapro DVT: Lovenox Code Visit Inpatient E&M: 13464 Subs Hosp L2
[2019-01-20] MEDS: Enoxaparin 30 MG/0.3 ML Syringe SC (11:13)
[2019-01-20] MEDS: amLODIPine 10 MG Tablet PO (11:36)
--- NOTE | 2019-01-20 16:01 | NURSING ---
assumed care of patient at 1500 report received from Ivan SEN
[2019-01-21] VITALS (19 sets, daily range): BP systolic 135–167; BP diastolic 62–90; PULSE 84–101; RESP 12–21; TEMP 36.6–37.7; O2SAT 96–100
[2019-01-21 04:14] LABS: Absolute Lymphocyte Count 2.29 X10^3/uL (0.83-4.51); Absolute Neutrophil Count 10.1 X10^3/uL (2.0-7.7); Basophil# 0.05 X10^3/uL; Basophil% 0.4 % (0-1); Eosinophil# 0.66 X10^3/uL; Eosinophils% 4.7 % (0-5); Hematocrit 22.9 % (37-47); Hemoglobin 7.4 g/dL (12.0-15.0); Lymphocyte # 2.29 X10^3/ul (4.0); Lymphocyte % 16.2 % (19-41); Mean Corp Hgb Conc 32.3 g/dL (32-36); Mean Corpuscular Hgb 32.5 pg (27.0-32.0); Mean Corpuscular Volume 100.4 fL (81-99); Mean Platelet Vol. 10.3 fl (6.2-12.0); Monocyte# 0.96 X10^3/uL; Monocyte% 6.8 % (0-10); NRBC Flagged by Analyzer 0 % (0-5); Neutrophil # 10.06 X10^3/uL (2.7-7.7); Neutrophil % 71.2 % (47-70); Platelet Count 253 K/mm3 (150-450); RBC Distribution Width CV 14.6 % (11.6-14.6); RBC Distribution Width SD 53.5 fl (35.1-43.9); Red Blood Count 2.28 M/mm3 (4.2-5.4); White Blood Count 14.1 K/mm3 (4.4-11.0)
[2019-01-21 04:28] LABS: Anion Gap 6 (5-15); BUN 23 mg/dL (7-18); Calcium,Total 8.3 mg/dL (8.5-10.1); Chloride 116 mmol/L (98-107); Creatinine, Serum 0.66 mg/dL (0.55-1.02); EST Glomerular Filtration Rate 97 mL/min (>60); Est Glom Filt Rate - Afr Amer 117 mL/min (>60); Estimated Creatinine Clearance 77.44 ml/min; Glucose 98 mg/dL (74-106); Sodium Level 147 mmol/L (136-145)
--- NOTE | 2019-01-21 08:57 | PCM.PN.REN ---
Patient Problems: Active and Suspected Problems Metabolic acidosis (Acute) HCAP (healthcare-associated pneumonia) (Acute) Dehydration (Acute) Sepsis (Acute) Hypovolemic shock (Acute) ARF (acute renal failure) (Acute) Delirium (Acute) Uremic acidosis (Acute) Subjective: complains of thirst, no nausea, vomiting or SOB. Sodium 147 NPO due to aspiration risk. Delirious with hallucinations, unreliable historian. - Physical Exam Vitals/I&O's: Vital Signs Temp Pulse Resp BP Pulse Ox 99.7 F H 89 21 H 154/73 H 99 01/21/19 07:00 01/21/19 08:00 01/21/19 08:00 01/21/19 08:00 01/21/19 08:00 Oxygen Flow Rate (L/min) 2 Oxygen Delivery Method Room Air Weight: 54.8 kg Body Mass Index (BMI) 23.3 Finger Stick Blood Glucose 119 Intake and Output for Last 24 Hours 01/19/19 01/20/19 01/21/19 23:59 23:59 23:59 Intake Total 3215.52 / 3842.59 3358.37 / 3358.37 843.25 / 843.25 Output Total 2625 / 3125 1950 / 1950 300 / 300 Balance 590.52 / 717.59 1408.37 / 1408.37 543.25 / 543.25 General: Confused, Disoriented, - - awake, responsive Lungs: Clear to auscultation Cardiovascular: Regular rate Abdomen: Bowel Sounds Present, Soft, Non Tender, Non-Distended Extremities: No edema Microbiology Past 72 Hours 01/19/19 13:50 Sputum, Induced/Lukens Gram Stain - Final 01/19/19 13:50 Sputum, Induced/Lukens Respiratory Culture - Final Staphylococcus aureus 01/18/19 14:50 Blood Culture (Wb) - Right Forearm Blood Culture - Preliminary No growth in 48 hours. 01/18/19 14:50 Blood Culture (Wb) - Left Hand Blood Culture - Preliminary No growth in 48 hours. 01/18/19 23:20 Urine Catheter - Abbott Streptococcus pneumoniae Antigen (M - Final 01/18/19 23:20 Urine Catheter - Abbott Legionella Antigen - Final 01/18/19 15:35 Stool Stool Occult Blood (SHANON) - Final Laboratory Results 01/21/19 04:05: WBC 14.1 H, RBC 2.28 L, Hgb 7.4 L, Hct 22.9 L, MCV 100.4 H, MCH 32.5 H, MCHC 32.3, RDW Std Deviation 53.5 H, RDW Coeff of Jesus 14.6, Plt Count 253, MPV 10.3, Immature Gran % (Auto) 0.700, Neut % (Auto) 71.2 H, Lymph % (Auto) 16.2 L, [place] % (Auto) 6.8, Eos % (Auto) 4.7, Baso % (Auto) 0.4, Absolute Neuts (auto) 10.1 H, Absolute Lymphs (auto) 2.29, Nucleated RBC % 0 01/21/19 04:05: Sodium 147 H, Potassium 3.0 L, Chloride 116 H, Carbon Dioxide 25.0, Anion Gap 6, BUN 23 H, Creatinine 0.66, Estim Creat Clear Calc 77.44, Est GFR (MDRD) Af Amer 117, Est GFR (MDRD) Non-Af 97, BUN/Creatinine Ratio 35.0 H, Glucose 98, Calcium 8.3 L Current Medications Acetaminophen (Tylenol Liquid) 650 mg PO Q4H PRN PRN PRN Reason: Pain or Fever >100.5 Albuterol Sulfate (Ventolin Aerosols) 2.5 mg INHALATION Q2H PRN PRN PRN Reason: SOB &/OR WHEEZING Amlodipine Besylate (Norvasc) 10 mg PO DAILY [facility] Last Admin: 01/20/19 11:36 Dose: 10 mg Documented by: Chlorhexidine Gluconate () 1 each TOPICAL DAILY [facility] Last Admin: 01/20/19 08:02 Dose: 1 each Documented by: Dextrose (D50w Syringe) 0 gm IV X1 PRN; Protocol PRN Reason: Hypoglycemia Enoxaparin Sodium (Lovenox) 30 mg SC DAILY@1000 [facility] Last Admin: 01/20/19 11:13 Dose: 30 mg Documented by: Glucagon () 1 mg IM .X1 PRN PRN Reason: Hypoglycemia Pantoprazole Sodium 40 mg/ (Sodium Chloride) 110 mls @ 330 mls/hr IV Q24 [facility] Last Infusion: 01/20/19 11:47 Dose: Infused Documented by: Sodium Chloride () 250 mls @ 15 mls/hr IV .[id number] PRN PRN Reason: Saline Flush Last Infusion: 01/21/19 02:04 Dose: 0 mls/hr Documented by: Meropenem 1 gm/ Sodium (Chloride) 120 mls @ 33 mls/hr IV BID AYO Last Infusion: 01/21/19 01:04 Dose: Infused Documented by: Dextrose () 1,000 mls @ 75 mls/hr IV .[id number] AYO Ondansetron HCl (Zofran) 4 mg IV Q6H PRN PRN PRN Reason: Nausea Sodium Chloride (0.9% Nacl (Sterile) Posiflush) 10 - 40 ml IV UD PRN PRN Reason: Port access or dressing change Medical Necessity - Tobacco Use Smoking Status: Unknown if ever smoked Assessment/Plan All Active Problems Metabolic acidosis (Acute) Fall (Acute) Left hip pain (Acute) Hypokalemia (Acute) Pelvic fracture (Acute) UTI (urinary tract infection) due to Enterococcus (Resolved) HCAP (healthcare-associated pneumonia) (Acute) Dehydration (Acute) Sepsis (Acute) Hypovolemic shock (Acute) ARF (acute renal failure) (Acute) Delirium (Acute) Uremic acidosis (Acute) Hip fracture (Resolved) 1. Nonoliguric acute renal failure Creatinine improving. UOP good. 2. Acute metabolic acidosis resolved. DC'd bicarb drip. 3. Hypernatremia change to D5W 4. Hypokalemia due to NPo replaced. DW hospitalist, nursing staff
[2019-01-21] MEDS: Enoxaparin 40 MG/0.4 ML Syringe SC (09:45)
[2019-01-21] MEDS: CHLORHEXIDINE GLUC 2% CLOTH 1 EACH TOWELETTE TOPICAL (09:47)
--- NOTE | 2019-01-21 09:52 | PN_ITS ---
Subjective: Patient did well overnight. Patient has remained hemodynamically stable on room air. Patient was not able to pass a spontaneous swallow study yesterday. Speech therapy continues to follow, but patient is currently n.p.o. Patient has been confused overnight stating that the my son told me he through the TV yesterday. Unknown clinical baseline. Patient did come from a nursing facility. General: Alert, Confused, Disoriented, - - No conversational dyspnea HEENT: Atraumatic, PERRLA, EOMI, Normocephalic, - - Slight scleral injection without icterus Oral: Moist Mucosa, No Gingival or Mucosal Lesions/ Ulcerations Neck: Supple, No JVD, No Nodes, Trachea Midline Lungs: Clear to auscultation, Normal air movement, No rhonchi, No wheeze, No rales Cardiovascular: Regular rate, Regular Rhythm, Normal S1, Normal S2, No murmurs, No rub noted, No Gallop Abdomen: Bowel Sounds Present, Soft, Non Tender, Non-Distended Extremities: No clubbing, No cyanosis, No edema, Capillary Refill Less than 3 Seconds Skin: No rashes, No breakdown Musculoskeletal: No Tenderness to Palpation of Joints or Extremities Lymphatic: No Cervical, Supraclavicular, or Inguinal Adenopathy Neurological: Cranial nerves II-XII grossly intact, Neuro grossly intact, Motor Exam 5/5 strength throughout Psych/Mental Status: Flat Affect, Impulsive Vital Signs Temp Pulse Resp BP Pulse Ox 37.6 C H 89 21 H 154/73 H 99 01/21/19 07:00 01/21/19 08:00 01/21/19 08:00 01/21/19 08:00 01/21/19 08:00 Oxygen Flow Rate (L/min) 2 Oxygen Delivery Method Room Air Weight: 54.8 kg Body Mass Index (BMI) 23.3 Finger Stick Blood Glucose 119 Intake and Output for Last 24 Hours 01/19/19 01/20/19 01/21/19 23:59 23:59 23:59 Intake Total 3215.52 / 3842.59 3358.37 / 3358.37 853.25 / 853.25 Output Total 2625 / 3125 1950 / 1950 300 / 300 Balance 590.52 / 717.59 1408.37 / 1408.37 553.25 / 553.25 Labs (Last 48 Hours) 01/20/19 01/20/19 01/20/19 04:50 04:50 06:11 WBC 13.6 H RBC 2.29 L Hgb 7.5 L Hct 23.4 L MCV 102.2 H MCH 32.8 H MCHC 32.1 RDW Std Deviation 57.1 H RDW Coeff of Jesus 15.3 H Plt Count 271 MPV 9.9 Immature Gran % (Auto) Neut % (Auto) Lymph % (Auto) [place] % (Auto) Eos % (Auto) Baso % (Auto) Absolute Neuts (auto) Absolute Lymphs (auto) Nucleated RBC % Specimen Type ART Sample Site L Radial pH 7.43 Bicarbonate Actual 20.5 L POC Total CO2 21 Base Excess -4 L O2 Saturation 96 O2 % 21 ABG pCO2 30.7 L ABG pO2 81 Niall Test POS O2 Delivery Device Vent Vent Mode CPAP PS POC PEEP 5 POC Pressure Suppt 5 Blood Gas Notified Whom ICU MD Blood Gas Notified Time 600 Sodium 148 H Potassium 3.5 Chloride 118 H Carbon Dioxide 23.0 Anion Gap 7 BUN 49 H Creatinine 1.06 H Estim Creat Clear Calc 48.92 Est GFR (MDRD) Af Amer 68 Est GFR (MDRD) Non-Af 56 L BUN/Creatinine Ratio 46.2 H Glucose 111 H Calcium 8.0 L 01/21/19 01/21/19 04:05 04:05 WBC 14.1 H RBC 2.28 L Hgb 7.4 L Hct 22.9 L MCV 100.4 H MCH 32.5 H MCHC 32.3 RDW Std Deviation 53.5 H RDW Coeff of Jesus 14.6 Plt Count 253 MPV 10.3 Immature Gran % (Auto) 0.700 Neut % (Auto) 71.2 H Lymph % (Auto) 16.2 L [place] % (Auto) 6.8 Eos % (Auto) 4.7 Baso % (Auto) 0.4 Absolute Neuts (auto) 10.1 H Absolute Lymphs (auto) 2.29 Nucleated RBC % 0 Specimen Type Sample Site pH Bicarbonate Actual POC Total CO2 Base Excess O2 Saturation O2 % ABG pCO2 ABG pO2 Niall Test O2 Delivery Device Vent Mode POC PEEP POC Pressure Suppt Blood Gas Notified Whom Blood Gas Notified Time Sodium 147 H Potassium 3.0 L Chloride 116 H Carbon Dioxide 25.0 Anion Gap 6 BUN 23 H Creatinine 0.66 Estim Creat Clear Calc 77.44 Est GFR (MDRD) Af Amer 117 Est GFR (MDRD) Non-Af 97 BUN/Creatinine Ratio 35.0 H Glucose 98 Calcium 8.3 L Microbiology 01/19/19 13:50 Sputum, Induced/Lukens Gram Stain - Final 01/19/19 13:50 Sputum, Induced/Lukens Respiratory Culture - Final Staphylococcus aureus 01/18/19 14:50 Blood Culture (Wb) - Right Forearm Blood Culture - Preliminary No growth in 48 hours. 01/18/19 14:50 Blood Culture (Wb) - Left Hand Blood Culture - Preliminary No growth in 48 hours. Medical Necessity - Tobacco Use Smoking Status: Unknown if ever smoked Assessment/Plan All Active Problems Metabolic acidosis (Acute) Fall (Acute) Left hip pain (Acute) Hypokalemia (Acute) Pelvic fracture (Acute) UTI (urinary tract infection) due to Enterococcus (Resolved) HCAP (healthcare-associated pneumonia) (Acute) Dehydration (Acute) Sepsis (Acute) Hypovolemic shock (Acute) ARF (acute renal failure) (Acute) Delirium (Acute) Uremic acidosis (Acute) Hip fracture (Resolved) RECOMMENDATIONS: 1. Transition to Levaquin therapy to complete 7 days 2. Walking oximetry prior to discharge 3. P.o. intake per speech recommendations 4. Okay to leave the intensive care unit from my perspective 5. Hemodynamically stable on room air. Will sign off from a critical care perspective IMPRESSIONS: 1. Acute respiratory failure secondary to encephalopathy and staph aureus tracheobronchitis Clinical suspicion for metabolic encephalopathy secondary to uremia. Patient was successfully liberated from the ventilator and is back on room air. Patient has come back positive with staph aureus, but no significant infiltrate or hypoxemia noted on exam. Unclear if this is related to colonization, but given patient's delirium, would recommend treatment for 7 days. This can be switched to p.o. once patient passes swallow evaluation. 2. Metabolic encephalopathy secondary to acute kidney injury with uremia Patient's renal function has completely resolved. Patient appears to be responding to conservative therapy. Continue with delirium protocol. Patient does have a slightly elevated sodium and chloride level, so free water should be encouraged if patient passes bedside swallow. Unclear baseline mentation. 3. 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 Cultures are showi ng sensitive staph aureus. We will transition to Levaquin therapy to narrow antibiotic spectrum. Patient is not having any nuchal rigidity to suggest meningismus. 4. Acute kidney injury Resolved. Unclear if this is secondary to septic shock versus volume depletion associated with reported nausea, vomiting and diarrhea. Nausea vomiting and diarrhea may be secondary to uremia. Patient appears to be responding to conservative therapy at this time. Continue to monitor urine output. 5. Hypertension/hyperthyroidism/hyperlipidemia/poor history/unable to contact next of kin Complicates care, management, recovery and prognosis. Antihypertensives have been held secondary to hypotension. Okay to continue with statin and Synthroid. Social work has found that the son is currently incarcerated. Patient will be a full code until further information is available. Patient is not able to make medical decisions at this time in my opinion. Code Visit Inpatient E&M: 74909 Subs Hosp L2
--- NOTE | 2019-01-21 10:05 | CASEMGMT ---
Addendum entered by Heavenly Lim 01/21/19 10:39: Speech therapy notes completed, KWASI faxed updates to [facility]. KWASI called [facility] and left a message for Angie at [facility] letting her know pt is on a diet and that she can start precert. Transport form placed on chart. LUIS ENRIQUE Ortiz Original Note: SW participated in ICU rounds this morning. Pt still having some confusion at times. Pt did confirm however she is here from [facility] with the plan to return. KWASI called Angie at [facility], let her know it is anticipated pt will be able to return in the next couple of days, asked her to start precert when appropriate. SW will fax updates. Speech evaluation is pending, once this is completed SW will fax updates along with the speech therapy note, and call Angie to let her know what pt's diet will be. LUIS ENRIQUE Ortiz
[2019-01-21] MEDS: levoFLOXacin IV 500 MG/100 ML BAG 100 MG IV (10:47)
--- NOTE | 2019-01-21 10:49 | PN_ITS ---
Patient Problems: Active and Suspected Problems Metabolic acidosis (Acute) HCAP (healthcare-associated pneumonia) (Acute) Dehydration (Acute) Sepsis (Acute) Hypovolemic shock (Acute) ARF (acute renal failure) (Acute) Delirium (Acute) Uremic acidosis (Acute) Subjective: Still very confused and hallucinating. Per the brother, this is a little worse than her baseline but she has been off since her brain aneurysm Vitals/I&O's: Vital Signs Temp Pulse Resp BP Pulse Ox 99.7 F H 91 16 151/70 H 99 01/21/19 07:00 01/21/19 10:00 01/21/19 10:00 01/21/19 10:00 01/21/19 10:00 Oxygen Flow Rate (L/min) 2 Oxygen Delivery Method Room Air Weight: 120 lb 13.013 oz Body Mass Index (BMI) 23.3 Finger Stick Blood Glucose 119 Intake and Output for Last 24 Hours 01/19/19 01/20/19 01/21/19 23:59 23:59 23:59 Intake Total 3215.52 / 3842.59 3358.37 / 3358.37 963.25 / 963.25 Output Total 2625 / 3125 1950 / 1950 300 / 300 Balance 590.52 / 717.59 1408.37 / 1408.37 663.25 / 663.25 General: Alert, Cooperative, No apparent distress, Disoriented and confused HEENT: Atraumatic, PERRLA, EOMI, Normocephalic Oral: Moist Mucosa Neck: Supple, No JVD Lungs: Clear to auscultation, Normal air movement, No rhonchi, No wheeze, No rales, Diminished Cardiovascular: Regular rate, Regular Rhythm, Normal S1, Normal S2, No murmurs Abdomen: Soft, Non Tender, Non-Distended, No Hepato-splenomegaly Extremities: No edema, Capillary Refill Less than 3 Seconds Skin: No rashes, No breakdown Neurological: Neuro grossly intact, Sensory exam intact to light touch and pain Psych/Mental Status: Flat Affect Microbiology Past 72 Hours 01/19/19 13:50 Sputum, Induced/Lukens Gram Stain - Final 01/19/19 13:50 Sputum, Induced/Lukens Respiratory Culture - Final Staphylococcus aureus 01/18/19 14:50 Blood Culture (Wb) - Right Forearm Blood Culture - Preliminary No growth in 48 hours. 01/18/19 14:50 Blood Culture (Wb) - Left Hand Blood Culture - Preliminary No growth in 48 hours. 01/18/19 23:20 Urine Catheter - Abbott Streptococcus pneumoniae Antigen (M - Final 01/18/19 23:20 Urine Catheter - Abbott Legionella Antigen - Final 01/18/19 15:35 Stool Stool Occult Blood (SHANON) - Final Laboratory Results 01/21/19 04:05: WBC 14.1 H, RBC 2.28 L, Hgb 7.4 L, Hct 22.9 L, MCV 100.4 H, MCH 32.5 H, MCHC 32.3, RDW Std Deviation 53.5 H, RDW Coeff of Jesus 14.6, Plt Count 253, MPV 10.3, Immature Gran % (Auto) 0.700, Neut % (Auto) 71.2 H, Lymph % (Auto) 16.2 L, [place] % (Auto) 6.8, Eos % (Auto) 4.7, Baso % (Auto) 0.4, Absolute Neuts (auto) 10.1 H, Absolute Lymphs (auto) 2.29, Nucleated RBC % 0 01/21/19 04:05: Sodium 147 H, Potassium 3.0 L, Chloride 116 H, Carbon Dioxide 25.0, Anion Gap 6, BUN 23 H, Creatinine 0.66, Estim Creat Clear Calc 77.44, Est GFR (MDRD) Af Amer 117, Est GFR (MDRD) Non-Af 97, BUN/Creatinine Ratio 35.0 H, Glucose 98, Calcium 8.3 L Current Medications Acetaminophen (Tylenol Liquid) 650 mg PO Q4H PRN PRN PRN Reason: Pain or Fever >100.5 Albuterol Sulfate (Ventolin Aerosols) 2.5 mg INHALATION Q2H PRN PRN PRN Reason: SOB &/OR WHEEZING Amlodipine Besylate (Norvasc) 10 mg PO DAILY [facility] Last Admin: 01/21/19 09:37 Dose: Not Given Documented by: Chlorhexidine Gluconate () 1 each TOPICAL DAILY [facility] Last Admin: 01/21/19 09:47 Dose: 1 each Documented by: Dextrose (D50w Syringe) 0 gm IV X1 PRN; Protocol PRN Reason: Hypoglycemia Enoxaparin Sodium (Lovenox) 40 mg SC DAILY@1000 A[facility] Last Admin: 10/30/19 09:45 Dose: 40 mg Documented by: Glucagon () 1 mg IM .X1 PRN PRN Reason: Hypoglycemia Pantoprazole Sodium 40 mg/ (Sodium Chloride) 110 mls @ 330 mls/hr IV Q24 [facility] Last Infusion: 01/21/19 10:04 Dose: Infused Documented by: Sodium Chloride () 250 mls @ 15 mls/hr IV .[id number] PRN PRN Reason: Saline Flush Last Infusion: 01/21/19 02:04 Dose: 0 mls/hr Documented by: Dextrose () 1,000 mls @ 75 mls/hr IV .[id number] AYO Last Admin: 01/21/19 09:45 Dose: 75 mls/hr Documented by: Levofloxacin (Levaquin Iv) 500 mg in 100 mls @ 100 mls/hr IV Q24 [facility] Stop: 01/25/19 10:01 Last Admin: 01/21/19 10:47 Dose: 100 mls/hr Documented by: Ondansetron HCl (Zofran) 4 mg IV Q6H PRN PRN PRN Reason: Nausea Sodium Chloride (0.9% Nacl (Sterile) Posiflush) 10 - 40 ml IV UD PRN PRN Reason: Port access or dressing change STROKE Vital Signs/Narrative: Vital Signs Temp Pulse Resp BP Pulse Ox 01/21/19 10:00 91 16 151/70 H 99 01/21/19 09:00 101 H 18 162/78 H 99 01/21/19 08:00 89 21 H 154/73 H 99 01/21/19 07:39 94 99 01/21/19 07:00 99.7 F H 90 14 160/62 H 98 Medical Necessity - Tobacco Use Smoking Status: Unknown if ever smoked Assessment/Plan All Active Problems Metabolic acidosis (Acute) Fall (Acute) Left hip pain (Acute) Hypokalemia (Acute) Pelvic fracture (Acute) UTI (urinary tract infection) due to Enterococcus (Resolved) HCAP (healthcare-associated pneumonia) (Acute) Dehydration (Acute) Sepsis (Acute) Hypovolemic shock (Acute) ARF (acute renal failure) (Acute) Delirium (Acute) Uremic acidosis (Acute) Hip fracture (Resolved) 1. Septic shock and acute hypoxic respiratory failure secondary to aspiration pneumonia/anion gap metabolic acidosis secondary to uremia with metabolic encephalopathy/SALLY/hypernatremia -Transition to levaquin -Extubated yesterday and continues to do well -Blood cultures are pending, Legionella and Streptococcus antigen are negative - Sputum with MSSA, likely colonization -Creatinine is improving from 4.46 on admission to 0.66, as is BUN -Continue with IV fluids continue with hypertonic saline given the elevated sodium -Renal ultrasound was unremarkable -Speech to work on swallowing so she can start PO 2. HTN/HLD -Blood pressure is climbing now into the 160s, she is on lisinopril at home can likely transition to Norvasc given her acute renal failure -Can restart pravastatin 3. Hypothyroidism -Stable -Continue with Synthroid 4. Anxiety/depression -Has hallucinations mostly auditory and per the brother she is a little worse than baseline after her brain aneurysm -When she is able to take p.o. can restart her amitriptyline, Wellbutrin, Lexapro DVT: Lovenox Code Visit Inpatient E&M: 12742 Subs Hosp L2
--- NOTE | 2019-01-21 11:44 | PCM.PN.REN ---
Patient Problems: Active and Suspected Problems Metabolic acidosis (Acute) HCAP (healthcare-associated pneumonia) (Acute) Dehydration (Acute) Sepsis (Acute) Hypovolemic shock (Acute) ARF (acute renal failure) (Acute) Delirium (Acute) Uremic acidosis (Acute) Subjective: appears confusion, delusional. Renal fxn improving. Remains NPO for aspiration risk. - Physical Exam Vitals/I&O's: Vital Signs Temp Pulse Resp BP Pulse Ox 99.7 F H 86 16 151/70 H 99 01/21/19 07:00 01/21/19 11:14 01/21/19 10:00 01/21/19 10:00 01/21/19 10:00 Oxygen Flow Rate (L/min) 2 Oxygen Delivery Method Room Air Weight: 54.8 kg Body Mass Index (BMI) 23.3 Finger Stick Blood Glucose 119 Intake and Output for Last 24 Hours 01/19/19 01/20/19 01/21/19 23:59 23:59 23:59 Intake Total 3215.52 / 3842.59 3358.37 / 3358.37 963.25 / 963.25 Output Total 2625 / 3125 1950 / 1950 300 / 300 Balance 590.52 / 717.59 1408.37 / 1408.37 663.25 / 663.25 General: Alert, Confused, Disoriented Lungs: Clear to auscultation Cardiovascular: Regular rate Abdomen: Bowel Sounds Present, Soft, Non Tender, Non-Distended Extremities: No edema Microbiology Past 72 Hours 01/19/19 13:50 Sputum, Induced/Lukens Gram Stain - Final 01/19/19 13:50 Sputum, Induced/Lukens Respiratory Culture - Final Staphylococcus aureus 01/18/19 14:50 Blood Culture (Wb) - Right Forearm Blood Culture - Preliminary No growth in 48 hours. 01/18/19 14:50 Blood Culture (Wb) - Left Hand Blood Culture - Preliminary No growth in 48 hours. 01/18/19 23:20 Urine Catheter - Abbott Streptococcus pneumoniae Antigen (M - Final 01/18/19 23:20 Urine Catheter - Abbott Legionella Antigen - Final 01/18/19 15:35 Stool Stool Occult Blood (SHANON) - Final Laboratory Results 01/21/19 04:05: WBC 14.1 H, RBC 2.28 L, Hgb 7.4 L, Hct 22.9 L, MCV 100.4 H, MCH 32.5 H, MCHC 32.3, RDW Std Deviation 53.5 H, RDW Coeff of Jesus 14.6, Plt Count 253, MPV 10.3, Immature Gran % (Auto) 0.700, Neut % (Auto) 71.2 H, Lymph % (Auto) 16.2 L, [place] % (Auto) 6.8, Eos % (Auto) 4.7, Baso % (Auto) 0.4, Absolute Neuts (auto) 10.1 H, Absolute Lymphs (auto) 2.29, Nucleated RBC % 0 01/21/19 04:05: Sodium 147 H, Potassium 3.0 L, Chloride 116 H, Carbon Dioxide 25.0, Anion Gap 6, BUN 23 H, Creatinine 0.66, Estim Creat Clear Calc 77.44, Est GFR (MDRD) Af Amer 117, Est GFR (MDRD) Non-Af 97, BUN/Creatinine Ratio 35.0 H, Glucose 98, Calcium 8.3 L Current Medications Acetaminophen (Tylenol Liquid) 650 mg PO Q4H PRN PRN PRN Reason: Pain or Fever >100.5 Albuterol Sulfate (Ventolin Aerosols) 2.5 mg INHALATION Q2H PRN PRN PRN Reason: SOB &/OR WHEEZING Amlodipine Besylate (Norvasc) 10 mg PO DAILY [facility] Last Admin: 01/21/19 09:37 Dose: Not Given Documented by: Chlorhexidine Gluconate () 1 each TOPICAL DAILY [facility] Last Admin: 01/21/19 09:47 Dose: 1 each Documented by: Dextrose (D50w Syringe) 0 gm IV X1 PRN; Protocol PRN Reason: Hypoglycemia Enoxaparin Sodium (Lovenox) 40 mg SC DAILY@1000 [facility] Last Admin: 01/21/19 09:45 Dose: 40 mg Documented by: Glucagon () 1 mg IM .X1 PRN PRN Reason: Hypoglycemia Pantoprazole Sodium 40 mg/ (Sodium Chloride) 110 mls @ 330 mls/hr IV Q24 [facility] Last Infusion: 01/21/19 10:04 Dose: Infused Documented by: Sodium Chloride () 250 mls @ 15 mls/hr IV .[id number] PRN PRN Reason: Saline Flush Last Infusion: 01/21/19 02:04 Dose: 0 mls/hr Documented by: Dextrose () 1,000 mls @ 75 mls/hr IV .[id number] [facility] Last Admin: 01/21/19 09:45 Dose: 75 mls/hr Documented by: Levofloxacin (Levaquin Iv) 500 mg in 100 mls @ 100 mls/hr IV Q24 A[facility] Stop: 01/25/19 10:01 Last Admin: 01/21/19 10:47 Dose: 100 mls/hr Documented by: Ondansetron HCl (Zofran) 4 mg IV Q6H PRN PRN PRN Reason: Nausea Sodium Chloride (0.9% Nacl (Sterile) Posiflush) 10 - 40 ml IV UD PRN PRN Reason: Port access or dressing change Medical Necessity - Tobacco Use Smoking Status: Unknown if ever smoked Assessment/Plan All Active Problems Metabolic acidosis (Acute) Fall (Acute) Left hip pain (Acute) Hypokalemia (Acute) Pelvic fracture (Acute) UTI (urinary tract infection) due to Enterococcus (Resolved) HCAP (healthcare-associated pneumonia) (Acute) Dehydration (Acute) Sepsis (Acute) Hypovolemic shock (Acute) ARF (acute renal failure) (Acute) Delirium (Acute) Uremic acidosis (Acute) Hip fracture (Resolved) 1. Nonoliguric acute renal failure Creatinine improved close to baseline 2. Acute metabolic acidosis resolved. DC'd bicarb drip. 3. Hypernatremia change to D5W 4. Hypokalemia due to NPO replaced. DW hospitalist, nursing staff
[2019-01-21] MEDS: Escitalopram Oxalate 10 MG Tablet PO (15:42)
[2019-01-21] MEDS: Amitriptyline 25 MG Tablet PO (23:12)
[2019-01-21] MEDS: Pravastatin 40 MG Tablet PO (23:12)
[2019-01-21] MEDS: buPROPion (SR) 150 MG Tablet.SA PO (23:13)
[2019-01-22] VITALS (7 sets, daily range): BP systolic 137–147; BP diastolic 66–79; PULSE 74–87; RESP 18; TEMP 36.7–36.8; O2SAT 98–99
--- NOTE | 2019-01-22 00:29 | NURSING ---
Handoff report given to Olaf Garber RN, relinquished care of pt at this time.
--- NOTE | 2019-01-22 02:17 | NURSING ---
Post void residual 35cc
[2019-01-22] MEDS: 0.9% Saline Lock 10 ML Syringe IV (04:56)
[2019-01-22] MEDS: Levothyroxine 50 MCG Tablet PO (05:31)
[2019-01-22 05:35] LABS: Albumin, Serum 2.5 g/dL (3.2-5.0); BUN 13 mg/dL (7-18); Calcium,Total 8.6 mg/dL (8.5-10.1); Chloride 114 mmol/L (98-107); Creatinine, Serum 0.62 mg/dL (0.55-1.02); EST Glomerular Filtration Rate 104 mL/min (>60); Est Glom Filt Rate - Afr Amer 126 mL/min (>60); Estimated Creatinine Clearance 82.43 ml/min; Glucose 87 mg/dL (74-106); Phosphorus 2.6 mg/dL (2.5-4.9); Potassium 3.1 mmol/L (3.5-5.1); Sodium Level 143 mmol/L (136-145)
--- NOTE | 2019-01-22 08:11 | TREXTCAR_ITS ---
- Diet 01/21/19 10:19 Diet: Regular Diet Food consistency:: Mechanical Soft/Ground Liquid Consistency:: [place] Thick Is pt able to select menu?: No Diet Comments: Direct supervision; seated at 90 degrees; meds w/ purees - Routine Orders/Code Status Routine Lab Work: CBC, BMP Code Status: Full Code - Therapies Physical Therapy: Eval and Treat Occupational Therapy: Eval and Treat - Allergies/Procedures Done in Hospital Allergies/Adverse Reactions: Allergies amoxicillin Allergy (Verified 01/18/19 14:33) Hives yeast infection - Type of Care/Length of Stay Estimated LOS: Convalescent Care Less Than 30 days Type of Care Needed: Skilled Rehab Potential: Good Prognosis: Good - Additional Orders/Day of Discharge Day of Discharge: 01/22/19 - Dietary and Speech Recommendations Dietitian Recommendations/Changes: Recommend advance diet as tolerated to cardiac/low cholesterol w/ consistency modifications per MACHINE ADJUSTER HELPER as needed. - Follow Up Care Primary Care Physician: Jaime Edmond MD [Primary Care Provider] - Please follow up with your Primary Care Physician in: 3-5 days
--- NOTE | 2019-01-22 08:13 | PCM.DC.SUM ---
Discharge Date and Diagnosis - Problem List Patient Problems: Active and Suspected Problems HCAP (healthcare-associated pneumonia) (Acute) Dehydration (Acute) Sepsis (Acute) Hypovolemic shock (Acute) ARF (acute renal failure) (Acute) Delirium (Acute) Uremic acidosis (Acute) Date of Admission: 01/18/19 Date of Discharge: 01/22/19 - Primary Discharge Diagnosis Active and Suspected Problems HCAP (healthcare-associated pneumonia) (Acute) Dehydration (Acute) Sepsis (Acute) Hypovolemic shock (Acute) ARF (acute renal failure) (Acute) Delirium (Acute) Uremic acidosis (Acute) - Secondary Discharge Diagnosis Chronic Problems Debility (Chronic) Nicotine abuse (Chronic) Anemia (Chronic) Depression (Chronic) Essential (primary) hypertension (Chronic) Hypothyroid (Chronic) Hydrocephalus (Chronic) Brain aneurysm (Chronic) Status post hip surgery (Chronic) Hospital Course and Treatment Imaging Results: CT Brain: IMPRESSION: Since 12/26/2018, stable exam. No acute intracranial hemorrhage. CXR: IMPRESSION: Developing atelectasis or infiltrate in the left lung base. CTA Head: IMPRESSION: 1. No intracranial/[place] aneurysm. Prior aneurysm repair (right parasellar) noted. 2. Minimal atherosclerosis of the carotid bulbs without hemodynamically significant stenosis. Renal US: IMPRESSION: 1. No hydronephrosis. 2. Simple left renal cyst. 3. Abbott catheter. Consults: ICU Operations: None Procedures: Aterial line placement, Central line placement Summary of Care Provided: Per HPI: The patient is a 63 year old F with past medical history as outlined below. She is a resident of a senior care and was recently admitted and discharged from [facility] about 2 weeks ago for debility due to mechanical fall. At that time, she was admitted from home and during admission was deemed to be too weak to return home after evaluation by physical therapy. She was therefore discharged to the senior care where she was found confused and staff said that she started yelling out and grabbing at things in front of her. ED note. 1 patient was brought to the ED, bradycardia documentation it was thought that she may have a left facial droop and decreased responsiveness and was also stated that patient had had vomiting and diarrhea for several days. Not much history could be obtained and at time of review patient was completely obtunded and unresponsive and so no history could be taken. On admission in the ED a stroke alert was called on account of suspicion for stroke. CT of the head was negative and CT angiogram done was also negative. She was noted to have an aneurysmal clip by the CT angiogram. ED staff discussed with [facility] neurology and was decided that IV TPA was not indicated. Patient was initially hypotensive on admission, with blood pressure being in the 70s. She was given IV fluids and blood pressure marginally increased to 93/53. Labs done showed sodium of 139 with potassium of 5.1 and bicarb of 9 with BUN of 123 and creatinine of 4.46. Baseline creatinine is within normal limits. Lactic acid was only 1.7 initial troponin was negative. CBC showed hemoglobin of 10 and white cell count of 12.4; platelets were 385. Chest x-ray does show developing atelectasis or infiltrate in the left lung base. She was also noted to be hypothermic and a bear hugger was put on her to help with active rewarming she was started on IV vancomycin and Zosyn on account of concerns of aspiration pneumonia. Due to significant uremia rectal exam was done to rule out any GI bleed; specimen was Hemoccult negative and there was no gross blood seen. At time of hospitalist review, patient was very obtunded and had no response whatsoever to severe sternal rub. She looked very dry and blood pressure was down in the 70s systolic. Hospitalist informed ED doctor about need. Blood gas and for patient to be intubated before being sent up to the ICU. Of note, patient had had a central line placed in the ED already. She has been admitted to be managed for septic shock likely due to aspiration pneumonia, SALLY likely prerenal due to severe dehydration from diarrhea and vomiting, and anion gap metabolic acidosis likely due to SALLY, as well as acute hypoxic respiratory failure due to aspiration pneumonia. Of note, blood gases came back with pH of 7.06 and PCO2 of 21.4 as well as PO2 of 73. Hospital Course: 1. Septic shock and acute hypoxic respiratory failure secondary to aspiration pneumonia/anion gap metabolic acidosis secondary to uremia with metabolic encephalopathy/SALLY/[id number]-ayut-old female who had recently been admitted after a fall from home was transferred to long-term facility. She presents with altered mental status and confusion. The senior care staff said that she was yelling out and grabbing at things in front of her. Initially when she came in a CT of the head was negative, and a CTA of the head showed previous aneurysm clips. According to the brother ever since she had her aneurysm she has been confused though this was a little bit more extreme than her normal. She was initially started on vancomycin and Zosyn for possible aspiration pneumonia. She was transitioned to meropenem and then ultimately Levaquin which she will continue p.o. for the next 6 days. She was intubated on admission after a blood gas came back with acidosis of 7.06 and a PCO2 of 21.4 and a PO2 of 73. She remained intubated for about 2 days and then she was extubated. She did well post extubation and was able to get off of oxygen within 36 hours of being extubated. Sputum culture did come back with an MSSA which was likely colonization. Nephrology had been consulted to help manage her creatinine, and she was initially at 4.46 on admission and on discharge she was 0.62. She did become a little bit hypernatremic with a peak sodium of 148 secondary to IV fluids, they were more decreased to half-normal saline and on the day of discharge her sodium was 143. Of note her potassium had dropped secondary to her being n.p.o. and on the day of discharge her potassium 3.1 but is being replaced with 60 mEq of p.o. potassium. She continues to have a leukocytosis of 14 however she has remained afebrile. Unfortunately due to her mental status communication with her is challenging in terms of what the plan will be going forward. Her brother has been kept up-to-date of her progress in the ICU. 2. HTN/HLD-she is initially on lisinopril as an outpatient, this was discontinued secondary to her acute kidney injury. Now that she is able to take p.o. I transitioned her over to Norvasc 10 mg and discontinued her lisinopril altogether. Since her creatinine did improve adding lisinopril back as an adjunct and Norvasc is reasonable if her blood pressures remain uncontrolled. Her highest blood pressure here in the hospital was in the 160s. 2. Her other medical diagnoses were evaluated and her home medications were continued where appropriate Patient Problems: Active and Suspected Problems HCAP (healthcare-associated pneumonia) (Acute) Dehydration (Acute) Sepsis (Acute) Hypovolemic shock (Acute) ARF (acute renal failure) (Acute) Delirium (Acute) Uremic acidosis (Acute) - Physical Exam Vitals/I&O's: Vital Signs Temp Pulse Resp BP Pulse Ox 98.2 F 74 18 141/66 H 99 01/22/19 03:45 01/22/19 08:05 01/22/19 03:45 01/22/19 03:45 01/22/19 03:45 Oxygen Flow Rate (L/min) 2 Oxygen Delivery Method Room Air Weight: 133 lb 6.075 oz Body Mass Index (BMI) 23.3 Finger Stick Blood Glucose 119 Intake and Output for Last 24 Hours 01/20/19 01/21/19 01/22/19 23:59 23:59 23:59 Intake Total 3358.37 / 3358.37 2279.50 / 2279.50 Output Total 1950 / 1950 525 / 525 Balance 1408.37 / 1408.37 1754.50 / 1754.50 General: Alert, Cooperative, No apparent distress, Disoriented and confused HEENT: Atraumatic, PERRLA, EOMI, Normocephalic Oral: Moist Mucosa Neck: Supple, No JVD Lungs: Clear to auscultation, Normal air movement, No rhonchi, No wheeze, No rales, Diminished Cardiovascular: Regular rate, Regular Rhythm, Normal S1, Normal S2, No murmurs Abdomen: Soft, Non Tender, Non-Distended, No Hepato-splenomegaly Extremities: No edema, Capillary Refill Less than 3 Seconds Skin: No rashes, No breakdown Neurological: Neuro grossly intact, Sensory exam intact to light touch and pain Psych/Mental Status: Flat Affect Microbiology Past 72 Hours 01/19/19 13:50 Sputum, Induced/Lukens Gram Stain - Final 01/19/19 13:50 Sputum, Induced/Lukens Respiratory Culture - Final Staphylococcus aureus 01/18/19 14:50 Blood Culture (Wb) - Right Forearm Blood Culture - Preliminary No growth in 48 hours. 01/18/19 14:50 Blood Culture (Wb) - Left Hand Blood Culture - Preliminary No growth in 48 hours. Laboratory Results 01/22/19 04:53: Sodium 143, Potassium 3.1 L, Chloride 114 H, Carbon Dioxide 24.0, BUN 13, Creatinine 0.62, Estim Creat Clear Calc 82.43, Est GFR (MDRD) Af Amer 126, Est GFR (MDRD) Non-Af 104, BUN/Creatinine Ratio 21.0 H, Glucose 87, Calcium 8.6, Phosphorus 2.6, Albumin 2.5 L Current Medications Acetaminophen (Tylenol Liquid) 650 mg PO Q4H PRN PRN PRN Reason: Pain or Fever >100.5 Albuterol Sulfate (Ventolin Aerosols) 2.5 mg INHALATION Q2H PRN PRN PRN Reason: SOB &/OR WHEEZING Amitriptyline HCl (Elavil) 25 mg PO QHS [facility] Last Admin: 01/21/19 23:12 Dose: 25 mg Documented by: Amlodipine Besylate (Norvasc) 10 mg PO DAILY [facility] Last Admin: 01/21/19 09:37 Dose: Not Given Documented by: Bupropion HCl (Wellbutrin Sr (150mg Tablets)) 150 mg PO BID [facility] Last Admin: 01/21/19 23:13 Dose: 150 mg Documented by: Chlorhexidine Gluconate () 1 each TOPICAL DAILY [facility] Last Admin: 01/21/19 09:47 Dose: 1 each Documented by: Dextrose (D50w Syringe) 0 gm IV X1 PRN; Protocol PRN Reason: Hypoglycemia Enoxaparin Sodium (Lovenox) 40 mg SC DAILY@1000 [facility] Last Admin: 01/21/19 09:45 Dose: 40 mg Documented by: Escitalopram Oxalate (Lexapro) 10 mg PO DAILY [facility] Last Admin: 01/21/19 15:42 Dose: 10 mg Documented by: Glucagon () 1 mg IM .X1 PRN PRN Reason: Hypoglycemia Pantoprazole Sodium 40 mg/ (Sodium Chloride) 110 mls @ 330 mls/hr IV Q24 [facility] Last Infusion: 01/21/19 10:04 Dose: Infused Documented by: Sodium Chloride () 250 mls @ 15 mls/hr IV .[id number] PRN PRN Reason: Saline Flush Last Infusion: 01/21/19 02:04 Dose: 0 mls/hr Documented by: Dextrose () 1,000 mls @ 75 mls/hr IV .[id number] [facility] Last Admin: 01/21/19 22:46 Dose: 75 mls/hr Documented by: Levofloxacin (Levaquin Iv) 500 mg in 100 mls @ 100 mls/hr IV Q24 [facility] Stop: 11/03/19 10:01 Last Infusion: 01/21/19 11:47 Dose: Infused Documented by: Levothyroxine Sodium (Synthroid) 50 mcg PO DAILY@0600 [facility] Last Admin: 01/22/19 05:31 Dose: 50 mcg Documented by: Ondansetron HCl (Zofran) 4 mg IV Q6H PRN PRN PRN Reason: Nausea Pravastatin Sodium (Pravachol) 40 mg PO QHS [facility] Last Admin: 01/21/19 23:12 Dose: 40 mg Documented by: Sodium Chloride (0.9% Nacl (Sterile) Posiflush) 10 - 40 ml IV UD PRN PRN Reason: Port access or dressing change Sodium Chloride () 10 - 40 ml IV UD PRN PRN Reason: SALINE FLUSH Last Admin: 01/22/19 04:56 Dose: 30 ml Documented by: Home Medications: Medications to take at Discharge Amitriptyline HCl 25 mg PO QHS 12/11/14 Diclofenac [Voltaren] 75 mg PO BIDCM 12/11/14 Pregabalin [Lyrica] 50 mg PO BID 12/11/14 Baclofen 10 mg PO BID 11/22/15 Dicyclomine HCl [Bentyl] 10 mg PO TIDCM 07/11/16 Escitalopram Oxalate [Lexapro] 10 mg PO DAILY 07/11/16 Multivitamins,Therapeutic [Multivitamin] 1 tab PO DAILY 07/11/16 Pravastatin [Pravachol] 40 mg PO QHS 07/11/16 buPROPion SR [Wellbutrin SR (150mg tablets)] 150 mg PO BID 07/11/16 Albuterol Aerosols [Ventolin Aerosols] 2.5 mg INHALATION Q2H PRN PRN #0 vial.neb. 07/16/16 Cetirizine HCl [Zyrtec] 10 mg PO DAILY 12/26/18 Levothyroxine [Synthroid] 50 mcg PO DAILY 12/26/18 Acetaminophen [Tylenol] 500 mg PO Q6H PRN PRN #1 tab 12/30/18 Cholecalciferol (VIT D3) [Vitamin D3] 2,000 unit PO DAILY tab 12/30/18 Menthol [Bengay Vanishing Scent] 1 applic TOPICAL 4X/DAY PRN PRN tube 12/30/18 Nicotine [Nicoderm Cq] 21 mg TRANSDERM. DAILY patch 12/30/18 Senna/Docusate Sodium [Senokot-S] 1 tab PO BID tab 12/30/18 Oxycodone HCl 2.5 mg PO Q4H PRN 01/18/19 Amlodipine [Norvasc] 10 mg PO DAILY tab 01/22/19 levoFLOXacin tablet [Levaquin tablet] 500 mg PO DAILY #6 tablet 01/22/19 Following Prescrptions Were Given to Patient: levoFLOXacin tablet [Levaquin tablet] 500 mg PO DAILY #6 tablet Primary Care Physician: Jaime Edmond MD [Primary Care Provider] - Please follow up with your Primary Care Physician in: 3-5 days Disposition: Intermediate facility Minutes spent on discharge:: 35 Patient Condition:: Stable Medical Necessity - Tobacco Use Smoking Status: Unknown if ever smoked Meaningful Use Info Meaningful Use Diagnoses (Choose all that apply): None applicable Code Visit Inpatient E&M: 24268 Disch Hosp
[2019-01-22] MEDS: amLODIPine 10 MG Tablet PO (09:10)
[2019-01-22] MEDS: Escitalopram Oxalate 10 MG Tablet PO (09:10)
[2019-01-22] MEDS: buPROPion (SR) 150 MG Tablet.SA PO (09:11)
[2019-01-22] MEDS: Enoxaparin 40 MG/0.4 ML Syringe SC (09:15)
[2019-01-22] MEDS: levoFLOXacin IV 500 MG/100 ML BAG 100 MG IV (10:48)
--- NOTE | 2019-01-22 12:33 | CASEMGMT ---
Still awaiting pre-cert for return to [facility]. Maria E PANIAGUA DRY CHAIN PULLER
--- NOTE | 2019-01-22 15:13 | CASEMGMT ---
Received approval for patient to go to [facility]. Faxed orders to [facility]. Called [facility] and arranged for patient to get picked up at 430 via cot. SW notified RN, patient, nurse charge rn, CHAIR UPHOLSTERER, receptionist secretary, and Margarita at [facility]. Plan: d/c back to [facility] under skilled level of care. [facility] Care transported via cot due to confusion. Maria E PANIAGUA MSW
--- NOTE | 2019-01-22 15:17 | NURSING ---
Central line to left chest dc'd, tip intact. Pressure held for 5 min and Vaseline gauze with 2x2 secured with tegaderm applied. Instruted to lay flat x 30min. Verbalizes understanding.
--- NOTE | 2019-01-22 16:13 | PN_ITS ---
Patient Problems: Active and Suspected Problems HCAP (healthcare-associated pneumonia) (Acute) Dehydration (Acute) Sepsis (Acute) Hypovolemic shock (Acute) ARF (acute renal failure) (Acute) Delirium (Acute) Uremic acidosis (Acute) Subjective: No issues overnight Vitals/I&O's: Vital Signs Temp Pulse Resp BP Pulse Ox 98.0 F 87 18 137/71 H 98 01/22/19 15:09 01/22/19 15:09 01/22/19 15:09 01/22/19 15:09 01/22/19 15:09 Oxygen Flow Rate (L/min) 2 Oxygen Delivery Method Room Air Weight: 133 lb 6.075 oz Body Mass Index (BMI) 23.3 Finger Stick Blood Glucose 119 Intake and Output for Last 24 Hours 01/20/19 01/21/19 01/22/19 23:59 23:59 23:59 Intake Total 3358.37 / 3358.37 2279.50 / 2279.50 1760 / 1760 Output Total 1950 / 1950 525 / 525 500 / 500 Balance 1408.37 / 1408.37 1754.50 / 1754.50 1260 / 1260 General: Alert, Cooperative, No apparent distress, Disoriented and confused HEENT: Atraumatic, PERRLA, EOMI, Normocephalic Oral: Moist Mucosa Neck: Supple, No JVD Lungs: Clear to auscultation, Normal air movement, No rhonchi, No wheeze, No rales, Diminished Cardiovascular: Regular rate, Regular Rhythm, Normal S1, Normal S2, No murmurs Abdomen: Soft, Non Tender, Non-Distended, No Hepato-splenomegaly Extremities: No edema, Capillary Refill Less than 3 Seconds Skin: No rashes, No breakdown Neurological: Neuro grossly intact, Sensory exam intact to light touch and pain Psych/Mental Status: Flat Affect Microbiology Past 72 Hours 01/19/19 13:50 Sputum, Induced/Lukens Gram Stain - Final 01/19/19 13:50 Sputum, Induced/Lukens Respiratory Culture - Final Staphylococcus aureus 01/18/19 14:50 Blood Culture (Wb) - Right Forearm Blood Culture - Preliminary No growth in 48 hours. 01/18/19 14:50 Blood Culture (Wb) - Left Hand Blood Culture - Preliminary No growth in 48 hours. Laboratory Results 01/22/19 04:53: Sodium 143, Potassium 3.1 L, Chloride 114 H, Carbon Dioxide 24.0, BUN 13, Creatinine 0.62, Estim Creat Clear Calc 82.43, Est GFR (MDRD) Af Amer 126, Est GFR (MDRD) Non-Af 104, BUN/Creatinine Ratio 21.0 H, Glucose 87, Calcium 8.6, Phosphorus 2.6, Albumin 2.5 L Current Medications Acetaminophen (Tylenol Liquid) 650 mg PO Q4H PRN PRN PRN Reason: Pain or Fever >100.5 Albuterol Sulfate (Ventolin Aerosols) 2.5 mg INHALATION Q2H PRN PRN PRN Reason: SOB &/OR WHEEZING Amitriptyline HCl (Elavil) 25 mg PO QHS [facility] Last Admin: 01/21/19 23:12 Dose: 25 mg Documented by: Amlodipine Besylate (Norvasc) 10 mg PO DAILY [facility] Last Admin: 01/22/19 09:10 Dose: 10 mg Documented by: Bupropion HCl (Wellbutrin Sr (150mg Tablets)) 150 mg PO BID [facility] Last Admin: 01/22/19 09:11 Dose: 150 mg Documented by: Chlorhexidine Gluconate () 1 each TOPICAL DAILY [facility] Last Admin: 01/22/19 09:05 Dose: Not Given Documented by: Dextrose (D50w Syringe) 0 gm IV X1 PRN; Protocol PRN Reason: Hypoglycemia Enoxaparin Sodium (Lovenox) 40 mg SC DAILY@1000 [facility] Last Admin: 01/22/19 09:15 Dose: 40 mg Documented by: Escitalopram Oxalate (Lexapro) 10 mg PO DAILY [facility] Last Admin: 01/22/19 09:10 Dose: 10 mg Documented by: Glucagon () 1 mg IM .X1 PRN PRN Reason: Hypoglycemia Pantoprazole Sodium 40 mg/ (Sodium Chloride) 110 mls @ 330 mls/hr IV Q24 [facility] Last Infusion: 01/22/19 10:52 Dose: Infused Documented by: Sodium Chloride () 250 mls @ 15 mls/hr IV .[id number] PRN PRN Reason: Saline Flush Last Infusion: 01/21/19 02:04 Dose: 0 mls/hr Documented by: Dextrose () 1,000 mls @ 75 mls/hr IV .[id number] [facility] Last Admin: 01/22/19 13:27 Dose: 75 mls/hr Documented by: Levofloxacin (Levaquin Iv) 500 mg in 100 mls @ 100 mls/hr IV Q24 [facility] Stop: 01/25/19 10:01 Last Infusion: 01/22/19 12:00 Dose: Infused Documented by: Levothyroxine Sodium (Synthroid) 50 mcg PO DAILY@0600 [facility] Last Admin: 01/22/19 05:31 Dose: 50 mcg Documented by: Ondansetron HCl (Zofran) 4 mg IV Q6H PRN PRN PRN Reason: Nausea Pravastatin Sodium (Pravachol) 40 mg PO QHS [facility] Last Admin: 01/21/19 23:12 Dose: 40 mg Documented by: Sodium Chloride (0.9% Nacl (Sterile) Posiflush) 10 - 40 ml IV UD PRN PRN Reason: Port access or dressing change Sodium Chloride () 10 - 40 ml IV UD PRN PRN Reason: SALINE FLUSH Last Admin: 01/22/19 04:56 Dose: 30 ml Documented by: STROKE Vital Signs/Narrative: Vital Signs Temp Pulse Resp BP Pulse Ox 01/22/19 15:09 98.0 F 87 18 137/71 H 98 Medical Necessity - Tobacco Use Smoking Status: Unknown if ever smoked Assessment/Plan All Active Problems Metabolic acidosis (Acute) Fall (Acute) Left hip pain (Acute) Hypokalemia (Acute) Pelvic fracture (Acute) UTI (urinary tract infection) due to Enterococcus (Resolved) HCAP (healthcare-associated pneumonia) (Acute) Dehydration (Acute) Sepsis (Acute) Hypovolemic shock (Acute) ARF (acute renal failure) (Acute) Delirium (Acute) Uremic acidosis (Acute) Hip fracture (Resolved) 1. Septic shock and acute hypoxic respiratory failure secondary to aspiration pneumonia/anion gap metabolic acidosis secondary to uremia with metabolic encephalopathy/SALLY/hypernatremia -C/w levaquin -Extubated and continues to do well -Blood cultures negative, Legionella and Streptococcus antigen are negative - Sputum with MSSA, likely colonization -Creatinine is improving from 4.46 on admission to 0.62, as is BUN -Renal ultrasound was unremarkable 2. HTN/HLD -Blood pressure is climbing now into the 160s, she is on lisinopril at home can likely transition to Norvasc given her acute renal failure -Can restart pravastatin 3. Hypothyroidism -Stable -Continue with Synthroid 4. Anxiety/depression -Has hallucinations mostly auditory and per the brother she is a little worse than baseline after her brain aneurysm -Continue with her amitriptyline, Wellbutrin, Lexapro DVT: Lovenox Code Visit Inpatient E&M: 04067 Subs Hosp L2
== END 2019-01-22 16:34 | disposition skilled nursing facility (03) | DRG 720 ==
LOC: ED 16:14 → ICU 17:41 → PCU 01-21 14:47
PROVIDERS: Internal Medicine Critical Care Medicine; Internal Medicine Nephrology; Admitting Provider Student in an Organized Health Care Education/Training Program; Emergency Provider Emergency Medicine; Family Provider Internal Medicine; PCP Internal Medicine; Referring Provider Student in an Organized Health Care Education/Training Program; Visit Provider Family Medicine
DX: A41.9 Sepsis, unspecified organism (principal); J96.01 Acute respiratory failure with hypoxia; R65.21 Severe sepsis with septic shock; J69.0 Pneumonitis due to inhalation of food and vomit; E78.5 Hyperlipidemia, unspecified; E87.2 Acidosis; E03.9 Hypothyroidism, unspecified; G93.41 Metabolic encephalopathy; I10 Essential (primary) hypertension; N17.9 Acute kidney failure, unspecified; E87.0 Hyperosmolality and hypernatremia; E87.6 Hypokalemia; R53.81 Other malaise; F32.9 Major depressive disorder, single episode, unspecified; G91.9 Hydrocephalus, unspecified; D64.9 Anemia, unspecified; Z98.2 Presence of cerebrospinal fluid drainage device
CPT/HCPCS: 31500; 31720; 36556; 36600; 36620; 51702; 70450; 70496; 70498; 71045; 74018; 76770; 80048; 80053; 80069; 81001; 82274; 82550; 82570; 82803; 83605; 84100; 84300; 84478; 84484; 85025; 85027; 85610; 85730; 87040; 87070; 87077; 87186; 87205; 87449; 92610; 93005; 94002; 94003; 94660; 95831; 97116; 97162; 97166; 97530; 97535; 97802; 99251; 99285; J2185; J7030; J7050; Q9967; A4216; C1751; G0463; J2405; J7799